=== PATIENT | male | born 1960 | race Caucasian/White ===

== ENCOUNTER 2018-01-07 17:51 | Emergency (ER) | payer MEDICARE, MEDICAID, SELFPAY ==
[2018-01-07 17:52] VITALS: BP 155/78; PULSE 72; RESP 16; TEMP 36.9; O2SAT 97; BMI 20.7
--- NOTE | 2018-01-07 18:35 | ED.RN ---
PT LEFT WITHOUT BEING SEEN.
== END 2018-01-07 18:39 | disposition left against medical advice (07) ==
LOC: ED 18:38
PROVIDERS: Emergency Provider Emergency Medicine
DX: H57.11 Ocular pain, right eye (principal)

== ENCOUNTER → 2020-10-18 14:28 | Outpatient (CLI) | payer MEDICARE, SELFPAY ==
--- NOTE | 2020-10-18 14:33 | RAD_ITS ---
STUDY: X-RAY - CERVICAL SPINE REASON FOR EXAM: Male, 59 years old. CHRONIC NECK PAIN TECHNIQUE: 3 view(s) of the cervical spine were obtained. COMPARISON: None FINDINGS: There are degenerative changes of the anterior atlantoaxial articulation. Normal odontoid process. There is straightening of the normal lordotic curve, a nonspecific finding, which may be due to positioning or which might be due to muscle spasm. There is multi-level endplate spondylosis. There is multi-level degenerative disc disease with multilevel disc space narrowing... The soft tissue structures are unremarkable. RAD/Cerv Spine 2 or 3 Views IMPRESSION: Multilevel degenerative changes. Electronically Signed: Farhad Gibson MD at 5:23 EST , Service support ,
== END ==
PROVIDERS: Referring Provider Anesthesiology Pain Medicine; Visit Provider Anesthesiology Pain Medicine
DX: M54.2 Cervicalgia (principal)
CPT/HCPCS: 72040

== ENCOUNTER → 2020-10-29 15:46 | Outpatient (CLI) | payer MEDICARE, SELFPAY ==
--- NOTE | 2020-10-29 15:49 | CT_ITS ---
STUDY: CT CERVICAL SPINE WITHOUT CONTRAST REASON FOR EXAM: Male, 59 years old. NECK AND LT ARM PAIN x years. HTN-rx controlled. Hx of pacemaker/defibrillator. RADIATION DOSAGE (If Supplied By Facility): CTDIvol = ( 14.58 ) mGy, DLP = ( 314.12 ) mGycm TECHNIQUE: High resolution transaxial imaging was performed without contrast material. Sagittal and coronal images were reconstructed. Individualized dose optimization techniques were used for this CT. COMPARISON: None FINDINGS: Normal craniovertebral junction. Normal anterior atlantoaxial articulation. Normal odontoid process. Normal cervical lordosis. Normal vertebral bodies and posterior osseous elements. C2-3: Normal endplates. Normal disc height and morphology. Normal central canal and intervertebral neuroforamina. C3-4: Normal endplates. Normal disc height and morphology. Normal central canal. Facet hypertrophy narrowing the intervertebral neuroforamina. C4-5: Mild spurring at the endplates. Normal disc height and morphology. Normal central canal. Facet hypertrophy narrowing the intervertebral neuroforamina, right lung and left. C5-6: Spurring at the endplates. Narrowed disc height with vacuum phenomenon. Normal central canal. Uncovertebral spurring narrowing the intervertebral neuroforamina. C6-7: Spurring at the endplates. Narrowed disc height with vacuum phenomenon. Normal central canal. Uncovertebral spurring narrowing the intervertebral neuroforamina, left more than right. C7-T1: Normal endplates. Normal disc height and morphology. Normal central canal and intervertebral neuroforamina. Normal visualized soft tissue structures. CT/Spine Cervical without Contras IMPRESSION: Degenerative changes of the cervical spine. Electronically Signed: Ottoniel Field DO at 16:14 EST Tel [phone], Service support ,
== END ==
PROVIDERS: Referring Provider Anesthesiology Pain Medicine; Visit Provider Anesthesiology Pain Medicine
DX: M54.2 Cervicalgia (principal); M79.602 Pain in left arm
CPT/HCPCS: 72125

== ENCOUNTER 2020-12-08 15:45 | Emergency (ER) | payer MEDICARE, SELFPAY ==
[2020-12-08 15:45] VITALS: BP 164/82; PULSE 71; PULSE 74; RESP 16; TEMP 35.7; O2SAT 98; O2SAT 99; BMI 19.2
--- NOTE | 2020-12-08 16:04 | CT_ITS ---
STUDY: CT ABDOMEN AND PELVIS WITH CONTRAST REASON FOR EXAM: Male, 59 years old. LLQ PAIN, KIWI SIZED MASS R LUNG, SHADOW ON LIVER ; RADIATION DOSAGE (If Supplied By Facility): CTDIvol = ( 9.96 ) mGy, DLP = ( 340.77 ) mGycm TECHNIQUE: Transaxial images were obtained from the dome of the diaphragm to the symphysis pubis without oral contrast. IV 100mL Isovue-370 was administered. Sagittal and coronal images were reconstructed. Individualized dose optimization techniques were used for this CT. COMPARISON: None. FINDINGS: There is 6.5 x 4.3 cm spiculated heterogeneous mass of the right lower lung. There is adjacent consolidation. There are pacemaker wires in the heart. Cyst in the right lobe of the liver measuring 0.5 and 1.3 cm. Normal gallbladder and extrahepatic biliary system. Normal spleen. Normal pancreas. Normal bilateral adrenal glands. Normal right kidney. Normal left kidney. Normal visualized stomach. Normal small intestine. Normal colon. There is moderate stool. There is non-visualization of the appendix. There is diffuse atherosclerotic calcification of the abdominal aorta, without a demonstrated aneurysm. Normal inferior vena cava. Normal retroperitoneum. Normal urinary bladder. No free fluid in the abdomen or pelvis. Normal abdominal wall. There is levoscoliosis with degenerative change of the spine. CT/Abdomen/Pelvis WITH Contrast IMPRESSION: Right lung mass. Cysts in the liver. Moderate stool. No obstruction. Electronically Signed: Bryson Alexander MD at 18:55 EST , Service support ,
--- NOTE | 2020-12-08 16:06 | ED.VIS.GEN ---
History of Present Illness Chief Complaint: Abd Pain Informant: Patient Narrative: 59-year-old male presents for the evaluation of left mid abdominal pain. Symptoms have been present for the past couple days. Is worse with breathing in and out. He denies any diarrhea melena or hematochezia. No urinary symptoms. Patient denies any fevers. He states that he was at [facility] today getting a CT scan of his brain and he stopped by his oncologist office and mentioned his symptoms and they wanted him to stay but he needed to get going for personal reasons they called him and advised him to come to emergency. He denies ever having any abdominal surgeries. Patient was recently diagnosed with a right lower lung mass. He has had a CT scan of his brain that was negative today. He is scheduled for biopsy at [facility] later this month. Patient currently working with [facility] oncology (Dr. Castro). Patient denies any current chest pain or shortness of breath. No current hemoptysis. - Past Medical History (1) Chronic pain Status: Chronic (2) Cardiomyopathy Status: Chronic (3) HTN (hypertension) Status: Chronic Past Medical History - Allergies and Home Meds Allergies/Adverse Reactions: Allergies naproxen Allergy (Verified 01/07/18 17:52) Other GIB Primary Care Physician: aSndeep Castro DO [STAFF PHYSICIAN] - Surgical History: pacemaker implantation, - - AICD Lives: Spouse/ Significant Other, With Family Smoking Status: Current every day smoker Drugs: None Review of Systems General: Denies: Chills, Fever, Sweats Eyes: Denies: Visual changes - bilaterally, Diplopia ENT: Denies: Rhinorrhea, Sore throat Cardiovascular: Denies: Chest pain, Palpitations Respiratory: Denies: Dyspnea, Cough, Dyspnea on exertion Gastrointestinal: Reports: Abdominal pain. Denies: Nausea, Vomiting, Diarrhea, Melena, Hematochezia Genitourinary: Denies: Dysuria, Hematuria, Frequency Musculoskeletal: Denies: Back pain, Extremity Pain Skin: Denies: Rash, Wounds Neurological: Denies: Headache, Weakness, Numbness Physical Exam Vital Signs/Narrative: Vital Signs Temp Pulse Resp BP Pulse Ox 12/08/20 15:45 96.2 F L 71 16 164/82 H 99 Inital Vital Signs reviewed: Yes General: Well nourished, Well developed, No Acute Distress Head: Normocephalic, Atraumatic Eyes: Perrl, EOMI ENT: Moist mucous membranes, No rhinorrhea Neck: Supple, Nontender Cardiovascular: Regular rate, Regular rhythm, No murmurs Respiratory: No distress, CTA bilaterally, Chest nontender Abdomen: Soft, Nondistended, Normal bowel sounds, Tender - Mild tenderness to palpation without guarding or rebound.. Negative for: Guarding, Rebound tenderness Back: Nontender, Normal Inspection Extremities: Nontender, No edema Skin: Normal color, No rash Neurological: Alert, Oriented x3, Cranial nerves II-XII grossly intact, Normal Strength, Normal Sensation Psychological: Normal affect, Normal Mood Diagnostic/Tx/Re-eval Clinical Impression(s) from Imaging Studies Abdomen/Pelvis CT 12/08/20 16:04 IMPRESSION: Right lung mass. Cysts in the liver. Moderate stool. No obstruction. Electronically Signed: Bryson Alexander MD at 18:55 EST , Service support , Laboratory Last Values WBC 10.9 K/mm3 (4.4-11.0) 12/08/20 16:15 RBC 4.95 M/mm3 (4.6-6.2) 12/08/20 16:15 Hgb 13.5 g/dL (13.0-16.5) 12/08/20 16:15 Hct 42.7 % (40-54) 12/08/20 16:15 MCV 86.3 fL (80-94) 12/08/20 16:15 MCH 27.3 pg (27.0-32.0) 12/08/20 16:15 MCHC 31.6 g/dL (32-36) L 12/08/20 16:15 RDW Std Deviation 42.5 fl (35.1-43.9) 12/08/20 16:15 RDW Coeff of Ranulfo 13.6 % (11.6-14.6) 12/08/20 16:15 Plt Count 263 K/mm3 (150-450) 12/08/20 16:15 MPV 9.9 fl (6.2-12.0) 12/08/20 16:15 Immature Gran % (Auto) 0.400 % (0.0-0.9) 12/08/20 16:15 Neut % (Auto) 66.1 % (47-70) 12/08/20 16:15 Lymph % (Auto) 19.0 % (19-41) 12/08/20 16:15 [place] % (Auto) 7.9 % (0-10) 12/08/20 16:15 Eos % (Auto) 5.8 % (0-5) H 12/08/20 16:15 Baso % (Auto) 0.8 % (0-1) 12/08/20 16:15 Absolute Neuts (auto) 7.2 X10^3/uL (2.0-7.7) 12/08/20 16:15 Absolute Lymphs (auto) 2.08 X10^3/uL (0.83-4.51) 12/08/20 16:15 Nucleated RBC % 0 % (0-5) 12/08/20 16:15 Sodium 136 mmol/L (136-145) 12/08/20 16:15 Potassium 3.9 mmol/L (3.5-5.1) 12/08/20 16:15 Chloride 105 mmol/L (98-107) 12/08/20 16:15 Carbon Dioxide 26.0 mmol/L (21.0-32.0) 12/08/20 16:15 Anion Gap 5 (5-15) 12/08/20 16:15 BUN 22 mg/dL (7-18) H 12/08/20 16:15 Creatinine 0.92 mg/dL (0.70-1.30) 12/08/20 16:15 Estim Creat Clear Calc 73.16 ml/min 12/08/20 16:15 Est GFR (MDRD) Af Amer 108 mL/min (>60) 12/08/20 16:15 Est GFR (MDRD) Non-Af 89 mL/min (>60) 12/08/20 16:15 BUN/Creatinine Ratio 23.9 RATIO (10-20) H 12/08/20 16:15 Glucose 83 mg/dL (74-106) 12/08/20 16:15 Calcium 9.4 mg/dL (8.5-10.1) 12/08/20 16:15 Total Bilirubin 0.30 mg/dL (0.20-1.00) 12/08/20 16:15 AST 24 U/L (15-37) 12/08/20 16:15 ALT 40 U/L (16-61) 12/08/20 16:15 Alkaline Phosphatase 134 U/L (45-117) H 12/08/20 16:15 Total Protein 8.5 g/dL (6.4-8.2) H 12/08/20 16:15 Albumin 3.5 g/dL (3.2-5.0) 12/08/20 16:15 Globulin 5.0 g/dL (2.2-4.2) H 12/08/20 16:15 Albumin/Globulin Ratio 0.7 RATIO (0.9-2.4) L 12/08/20 16:15 Lipase 88 U/L (73-393) 12/08/20 16:15 Urine Color Yellow (Yellow) 12/08/20 16:20 Urine Clarity Clear (Clear) 12/08/20 16:20 Urine pH 5.0 (5.0 - 8.0) 12/08/20 16:20 Ur Specific [place] 1.010 (1.002-1.030) 12/08/20 16:20 Urine Protein 15 mg/dl (Negative) H 12/08/20 16:20 Urine Glucose (UA) Normal mg/dl (Normal) 12/08/20 16:20 Urine Ketones Negative mg/dl (Negative) 12/08/20 16:20 Urine Occult Blood 25 /ul (Negative) H 12/08/20 16:20 Urine Nitrite Negative (Negative) 12/08/20 16:20 Urine Bilirubin Negative mg/dL (Negative) 12/08/20 16:20 Urine Urobilinogen Normal mg/dl (Normal) 12/08/20 16:20 Ur Leukocyte Esterase Negative /ul (Negative) 12/08/20 16:20 Urine RBC 0 SEEN /hpf (0-5) 12/08/20 16:20 Urine WBC 0 SEEN /hpf (0-5) 12/08/20 16:20 Ur Squamous Epith Cells 0 SEEN /hpf (0-5) 12/08/20 16:20 Urine Bacteria 0 SEEN /hpf (None Seen) 12/08/20 16:20 Urine Mucus 0 SEEN /hpf (<or=2+) 12/08/20 16:20 - Medical Decision Making CT demonstrates no acute findings in the abdomen to explain the patient's left middle quadrant pain. His blood work is negative. Urinalysis is negative. This point patient will be discharged home to follow-up with his doctor. I did speak with Dr. Castro early up in the course. He sent the patient in as a possible pulmonary embolism evaluation. However given the patient has no chest pain or shortness of breath and his pain is in the left middle quadrant of his abdomen I do not think that this is referred pain from PE. ED Disposition - Plan for ED Patient: Disposition: Home or Assisted Living Diagnosis: Abdominal pain, Liver cyst, Lung mass Instructions: ED Unknown Causes of Abdominal ... Prescriptions: Magnesium Citrate [Citrate Of Magnesia] 300 ml PO X1 #1 bottle Prescription Printed Referrals: Sandeep Castro DO [STAFF PHYSICIAN] -
[2020-12-08 16:35] LABS: Bacteria 0 SEEN /hpf (None Seen); Mucous, Urine 0 SEEN /hpf (<or=2+); Red Blood Cells-Urine 0 SEEN /hpf (0-5); Squamous Epithelial Cells - UA 0 SEEN /hpf (0-5); White Blood Cells 0 SEEN /hpf (0-5)
[2020-12-08 16:37] LABS: Absolute Lymphocyte Count 2.08 X10^3/uL (0.83-4.51); Absolute Neutrophil Count 7.2 X10^3/uL (2.0-7.7); Basophil# 0.09 X10^3/uL; Basophil% 0.8 % (0-1); Eosinophil# 0.63 X10^3/uL; Eosinophils% 5.8 % (0-5); Hematocrit 42.7 % (40-54); Hemoglobin 13.5 g/dL (13.0-16.5); Lymphocyte # 2.08 X10^3/ul (4.0); Mean Corp Hgb Conc 31.6 g/dL (32-36); Mean Corpuscular Hgb 27.3 pg (27.0-32.0); Mean Corpuscular Volume 86.3 fL (80-94); Mean Platelet Vol. 9.9 fl (6.2-12.0); Monocyte# 0.86 X10^3/uL; Monocyte% 7.9 % (0-10); NRBC Flagged by Analyzer 0 % (0-5); Neutrophil # 7.23 X10^3/uL (2.7-7.7); Neutrophil % 66.1 % (47-70); Platelet Count 263 K/mm3 (150-450); RBC Distribution Width CV 13.6 % (11.6-14.6); RBC Distribution Width SD 42.5 fl (35.1-43.9); Red Blood Count 4.95 M/mm3 (4.6-6.2); White Blood Count 10.9 K/mm3 (4.4-11.0)
[2020-12-08 16:38] LABS: Color, Urine Yellow (Yellow); Glucose, Dipstick Normal (Normal); Ketone-Dipstick Negative (Negative); Leukocyte Esterase-Dipstick Negative /ul (Negative); Nitrite-Dipstick Negative (Negative); Occult Blood-Urine 25 /ul (Negative); Protein-Dipstick 15 mg/dl (Negative); Urine Bilirubin Dipstick Negative (Negative); Urine Clarity Clear (Clear); Urine Urobilinogen Normal (Normal)
[2020-12-08 16:49] LABS: ALB/GLOB Ratio 0.7 RATIO (0.9-2.4); AST(SGOT) 24 U/L (15-37); Alanine Aminotransfer ALT/SGPT 40 U/L (16-61); Albumin, Serum 3.5 g/dL (3.2-5.0); Alkaline Phosphatase 134 U/L (45-117); Anion Gap 5 (5-15); BUN 22 mg/dL (7-18); BUN/Creat Ratio 23.9 RATIO (10-20); Calcium,Total 9.4 mg/dL (8.5-10.1); Chloride 105 mmol/L (98-107); Creatinine, Serum 0.92 mg/dL (0.70-1.30); EST Glomerular Filtration Rate 89 mL/min (>60); Est Glom Filt Rate - Afr Amer 108 mL/min (>60); Estimated Creatinine Clearance 73.16 ml/min; Glucose 83 mg/dL (74-106); Lipase 88 U/L (73-393); Potassium 3.9 mmol/L (3.5-5.1); Protein, Total 8.5 g/dL (6.4-8.2); Sodium Level 136 mmol/L (136-145)
[2020-12-08 18:34] VITALS: BP 116/74; PULSE 64; RESP 16; O2SAT 97
[2020-12-08 19:24] VITALS: RESP 18
== END 2020-12-08 19:22 | disposition home or self-care (01) ==
PROVIDERS: Emergency Provider Emergency Medicine
DX: K76.89 Other specified diseases of liver (principal); R91.8 Other nonspecific abnormal finding of lung field; R10.30 Lower abdominal pain, unspecified; I10 Essential (primary) hypertension; F17.200 Nicotine dependence, unspecified, uncomplicated
CPT/HCPCS: 74177; 80053; 81001; 83690; 85025; 99284; Q9967; A4216

== ENCOUNTER → 2020-12-21 15:20 | Outpatient (CLI) | payer MEDICARE, SELFPAY ==
[2020-12-15 09:36] VITALS: BMI 19.8
--- NOTE | 2020-12-21 15:30 | PET_ITS ---
EXAMINATION: FDG PET/CT INDICATIONS: A 60-year-old male with reported history of pulmonary nodularity. COMPARISON EXAMINATION: CT of the chest report dated 11/24/20 INDEX LESION SIZE SUV INTERPRETATION Right lower posteromedial lung-right lower lobe 50.2 x 61.1-mm (frame 137) 33.5 Fulfills quantitative criteria for viable neoplasm, histopathologic analysis recommended Mid abdominal retroperitoneum soft tissue nodule 9.6-mm (frame 103) 3.2 Fulfills quantitative criteria for viable neoplasm Mediastinal structures 23.4-mm (largest) (frame 159) 3.6 (max) Fulfills borderline quantitative criteria for viable neoplasm TECHNIQUE: Following the intravenous administration of 14.1 mCi of F-18 deoxyglucose via the left antecubital fossa, multiplanar image acquisitions of the neck, chest, abdomen and pelvis to level of mid thigh, obtained at one hour post radiopharmaceutical administration contemporaneously interpreted with the current CT of the neck, chest, abdomen and pelvis to level of mid thigh, dated 12/21/[address] of the chest report dated 11/24/20 reveal: SERUM GLUCOSE LEVEL: 82 mg/dl. HEIGHT: 69 inches. WEIGHT: 130 lbs. FINDINGS: 1. A large focus of increased FDG concentration is observed in the right lower posteromedial lung-right lower lobe generating a calculated maximal standard uptake value of 33.5. The maximal axial diameter of the corresponding mass density on review of CT of the chest dated 12/21/20 is 50.2-mm (transverse) x 61.1-mm (AP). 2. An increase in FDG distribution is defined in the carinal, subcarinal mediastinum rendering a calculated maximal standard uptake value of 2.6. The maximal axial diameter of the largest corresponding hypermetabolic soft tissue density on review of CT of the chest dated 12/21/20 is 23.4-mm (transverse). 3. Several nodular foci of increased tracer uptake are demonstrated in the left mid abdominal retroperitoneum, periaortic in location registering a calculated maximal standard uptake value of 3.2. The maximal axial diameter of the largest corresponding soft tissue density on review of CT of the abdomen dated 12/21/20 is 9.6-mm (transverse). 4. Normal physiologic distribution of the radiopharmaceutical is apparent in the hepatic (2.2) and splenic parenchyma, both renal units, bladder and visualized intestinal tract. The visualized portion of the cerebral cortex demonstrate symmetric and preserved glucose metabolism. Diffuse radiopharmaceutical concentration is noted in all four quadrants of the abdomen and pelvis. Pertinent CT findings are as follows: CHEST: There is atherosclerotic calcification defined in the thoracic aorta without evidence of dilatation-aneurysm formation. Coronary arterial calcification is observed. Ventricular pacemaker placement is defined. Right and left axillary soft tissue densities with fatty hilus are ametabolic. There are no additional parenchymal densities-nodules defined in the right and left hemithorax with discernible increased FDG uptake. Emphysematous changes are noted in the bilateral upper lung zones. ABDOMEN AND PELVIS: There is atherosclerotic calcification defined in the abdominal aorta without evidence of dilatation-aneurysm formation. Pelvic arterial calcification is defined. Bilateral inguinal soft tissue densities with fatty hilus are ametabolic. Colonic diverticulosis is encountered without evidence of diverticulitis. Calcified phlebolith formation is noted in the right lower hemipelvis. SKELETAL: Degenerative changes are noted in the cervical, thoracic and lumbar spine without evidence of increased radiopharmaceutical concentration. There is diffuse demineralization identified throughout the axial skeletal structures. There are no sclerotic, mixed sclerotic-lytic and/or primarily lytic changes noted on review of the appendicular, axial skeletal structures. PET/PET/CT Tumor Base -Thigh Init IMPRESSION: 1. The increase in FDG concentration observed in the right lower posteromedial lung-right lower lobe fulfills quantitative criteria for viable neoplasm. Histopathologic analysis is recommended. (James et al, Annals of Internal Medicine, 138:724, 2003). 2. Enhanced tracer uptake visualized in the left mid abdominal retroperitoneum corresponding to several aggregate soft tissue densities fulfills quantitative criteria for apparent viable metastatic disease. 3. Increased radiopharmaceutical concentration visualized in the carinal and subcarinal mediastinum fulfills borderline quantitative criteria for viable neoplasm. (Lj et al, Journal of Clinical Oncology 16:2142, 1998). Electronic Signature Anders Solares D.O. Accurate Quantification of SUVs for this report are calculated using the exclusive [employer]? Technology.??Exclusive [place]. Patent [employer]? Technology ([place].S. Patent No. 10, [id number] 983). Electronically Signed: Anders Solares DO at 22:58 EST Tel , Service support ,
== END ==
LOC: ONC 15:23
PROVIDERS: Referring Provider Internal Medicine Hematology & Oncology; Visit Provider Internal Medicine Hematology & Oncology
DX: R91.8 Other nonspecific abnormal finding of lung field (principal)
CPT/HCPCS: 78815; A9552

== ENCOUNTER → 2020-12-24 12:58 | Outpatient (CLI) | payer MEDICARE, SELFPAY ==
[2020-12-15 09:36] VITALS: BMI 19.8
--- NOTE | 2020-12-24 13:00 | ECHODONC_ITS ---
Reason For Study: DYSPNEA Procedure This was a 2D Doppler, Color Flow transthoracic echocardiogram. Myocardial strain analysis was performed in this exam to aid in the assessment of cardiac function. The study was technically difficult. Exam performed in department. Left Ventricle Normal LV size. Left ventricular systolic function is normal. The estimated ejection fraction is 55 %. No regional wall motion abnormalities noted. Right Ventricle Normal RV size. ICD or pacer leads identified within the right ventricle. Normal systolic function. Atria Normal left atrium. Normal right atrium. Mitral Valve Normal mitral valve. Tricuspid Valve Normal tricuspid valve. Mild tricuspid valve insufficiency. Pulmonary artery systolic pressure is 33 mmHg. Aortic Valve Normal aortic valve. Trisinus/trileaflet aortic valve. Pulmonic Valve Normal pulmonic valve. Great Vessels Normal aortic root. The pulmonary artery is normal size. Normal inferior vena cava. Pericardium/Pleural No pericardial effusion. MMode/2D Measurements & Calculations LVIDd: 4.7 cm IVSd: 0.73 cm Ao root diam: 3.2 cm LVIDs: 3.6 cm LVPWd: 0.79 cm RVDd: 3.3 cm FS: 23.5 % LAV(MOD-bp): 53.2 ml LA A4 area: 19.2 cm2 LA dimension(2D): 3.7 cm LAV(MOD-bp) Indexed: 30.5 ml/m2 LAV(MOD-sp2): 43.1 ml LAV(MOD-sp4): 57.0 ml RA A4 area: 11.8 cm2 Time Measurements MV dec time: 0.36 sec Doppler Measurements & Calculations MV E max elmer: 48.3 cm/sec Lat Peak E' Elmer: 8.8 cm/sec Med Peak E' Elmer: 8.0 cm/sec MV A max elmer: 43.7 cm/sec E/E' lat: 5.5 E/E' med: 6.0 MV E/A: 1.1 Ao V2 max: 120.0 cm/sec LV V1 max: 87.8 cm/sec PA V2 max: 74.0 cm/sec Ao max P.8 mmHg LV V1 max P.1 mmHg Ao V2 mean: 80.3 cm/sec Ao mean P.8 mmHg Ao V2 VTI: 24.1 cm TR max elmer: 271.4 cm/sec TR max P.5 mmHg Interpretation Summary Normal LV size. Left ventricular systolic function is normal. The estimated ejection fraction is 55 %. Pulmonary artery systolic pressure is 33 mmHg. The global longitudinal strain is normal. The global longitudinal strain = -18 % (normal). Ordering Physician: Moe Reza Referring Physician: Moe Reza Performed By: Candy Meehan, RUSSELLCS, RVT
== END ==
PROVIDERS: Referring Provider Internal Medicine Cardiovascular Disease; Visit Provider Internal Medicine Cardiovascular Disease
DX: I34.0 Nonrheumatic mitral (valve) insufficiency (principal)
CPT/HCPCS: 93306; 93356

== ENCOUNTER → 2021-01-11 08:52 | Outpatient (CLI) | payer MEDICARE, SELFPAY ==
[2020-12-15 09:36] VITALS: BMI 19.8
[2021-01-11] VITALS (14 sets, daily range): BP systolic 106–128; BP diastolic 55–78; PULSE 60–66; RESP 11–19; O2SAT 96–99; BMI 19.6
--- NOTE | 2021-01-11 | ASPIGT_PTH ---
PATIENT: NAKUL TRISTAN LOC: CT U#:[id number] AGE/SX: 64/M ROOM: RE01/11/[address]: Dr. Sandeep Castro DO : 1960 BED: DIS: SPEC #: [id number] RECD: 01/11/21 11:00 STATUS: JOSELIN VINCENT #: [id number] AJ: 01/11/21 00:[address]: Sandeep Castro DEPT: SURGICAL PATHOLOGY RECD BY: Nicole Bowen ENTERED: 01/11/21 12:53 SP TYPE: ASP RAD OTHR DR: Dr. Reinaldo Anaya, MD Jorje Frances, PAYING TELLER-C Tissues: Lung, NOS Procedures: FNA Specimen Adequacy Special Stain Group II Surgery Specimen Level IV Imprint (control) HEADER OPERATION: RLL lung CT-guided core biopsy PRE-OP DIAGNOSIS: RLL lung nodule TISSUE SUBMITTED: Right lower lung mass, 20-gauge core x5 MICROSCOPIC DIAGNOSIS Right lower lung mass, CT-guided core biopsy: Negative for malignant cells. See comment. RUSLAN:steph 01/12/2021 COMMENT The specimen is evaluated at the time of biopsy by Dr. Gonzalez. Immediate Evaluation = Negative for malignant cells. Numerous neutrophils are noted. The core biopsy predominantly shows blood clots, scant fibrinous material and rare neutrophils. Smears show numerous neutrophils and macrophages. Findings may represents inflamed cyst contents. Correlation with clinical, radiologic findings and appropriate follow up are necessary. Re-biopsy is suggested if clinically indicated. Case has been reviewed in consultation with Dr. Ramon who concurs with the above diagnosis. IDC:AM MICROSCOPIC DESCRIPTION Slides are reviewed. GROSS DESCRIPTION Received in fixative is one container labeled with the patient's name and designated right lung, CT-guided core biopsy. The specimen consists of multiple irregular fragments of pink-red soft tissue that in aggregate measure 0.5 x 0.1 x 0.1 cm. The specimen is totally submitted in one cassette. Three touch imprints are prepared at the time of core biopsy. / RUSLAN:steph 01/11/21 TC: Cannot code CPT: 93850, 00422
--- NOTE | 2021-01-11 08:58 | CT_ITS ---
PROCEDURE: CT GUIDED CORE NEEDLE BIOPSY OF A right lower lateral LUNG LESION INDICATION: Male, 60 years old. Right lower lung mass biopsy. PHYSICIAN: Dr. FCO Patricio CONSENT: Written informed consent was obtained having explained the risks, benefits and alternatives in detail with the patient who accepted the risks and agreed to proceed. Laboratory review and clinical assessment was performed. CONSCIOUS SEDATION PROTOCOL: The Drugs used were: Versed, 2 mg IV., and 75 mcg Fentanyl, IV. The sedation time was: 23 minutes. Conscious sedation was started at 10:20 AM and terminated at 10:43 AM. The conscious sedation protocol was independently monitored. RADIATION DOSAGE (If Supplied By Facility): CTDIvol = ( 13.6 ) mGy, DLP = ( 286.65 ) mGycm Individualized dose optimization techniques were used for this CT. TECHNIQUE: The patient was placed in the prone position. A noncontrast CT was performed to localize the lesion in the posterior medial aspect of the right lower lobe . The skin surface was prepped and draped in a sterile fashion. 1% lidocaine was used for local anesthesia. Using CT guidance, a 20-gauge coaxial biopsy device was advanced to the periphery of the lesion. A total of 5 core specimens were obtained. The specimens were placed in a formalin solution. A post procedure CT demonstrated no adverse sequelae or pneumothorax. The patient tolerated the procedure well without adverse event. A negative biopsy does not exclude malignancy. Further imaging or clinical followup based on patient condition and degree of clinical suspicion for malignancy. Suggest rebiopsy, if biopsy results do not match with clinical scenario. CT/Biopsy/Inj or Needle Placement IMPRESSION: 1. CT directed core needle biopsy of the right lower lobe nodule using CT image guidance with image documentation as described. Pathology results are pending. 2. Conscious Sedation protocol utilized with independent monitoring. Electronically Signed: Reinaldo Anaya MD at 11:21 EST , Service support ,
[2021-01-11 09:54] LABS: Absolute Lymphocyte Count 1.55 X10^3/uL (0.83-4.51); Absolute Neutrophil Count 7.1 X10^3/uL (2.0-7.7); Basophil# 0.07 X10^3/uL; Basophil% 0.7 % (0-1); Eosinophil# 0.63 X10^3/uL; Eosinophils% 6.2 % (0-5); Hematocrit 41.6 % (40-54); Hemoglobin 13.2 g/dL (13.0-16.5); Lymphocyte # 1.55 X10^3/ul (4.0); Lymphocyte % 15.4 % (19-41); Mean Corp Hgb Conc 31.7 g/dL (32-36); Mean Corpuscular Hgb 27.2 pg (27.0-32.0); Mean Corpuscular Volume 85.6 fL (80-94); Mean Platelet Vol. 9.8 fl (6.2-12.0); Monocyte# 0.73 X10^3/uL; Monocyte% 7.2 % (0-10); NRBC Flagged by Analyzer 0 % (0-5); Neutrophil # 7.05 X10^3/uL (2.7-7.7); Neutrophil % 69.9 % (47-70); Platelet Count 269 K/mm3 (150-450); RBC Distribution Width CV 13.3 % (11.6-14.6); Red Blood Count 4.86 M/mm3 (4.6-6.2); White Blood Count 10.1 K/mm3 (4.4-11.0)
[2021-01-11 10:05] LABS: Partial Thromboplast Time 33.2 Seconds (24.1-36.2)
--- NOTE | 2021-01-11 10:15 | RAD_ITS ---
STUDY: X-RAY CHEST REASON FOR EXAM: Male, 60 years old. Pneumothorax TECHNIQUE: AP inspiration and expiration views. COMPARISON: Comparison is made with prior study dated 09/11/2014. FINDINGS: There is no evidence of pneumothorax on the immediate post right lung biopsy radiographs. Metallic shrapnel is seen overlying the right shoulder. RAD/Chest Insp/Exp 2 View IMPRESSION: No evidence of pneumothorax on the immediate post right lung biopsy radiographs. Electronically Signed: Reinaldo Anaya MD at 12:26 EST , Service support ,
[2021-01-11] MEDS: Midazolam 2 MG/2 ML Syringe IV (10:20)
[2021-01-11] MEDS: fentaNYL 100 MCG/2 ML Ampul IV ×2 (10:22→10:38)
--- NOTE | 2021-01-11 12:50 | RAD_ITS ---
STUDY: X-RAY CHEST REASON FOR EXAM: Male, 60 years old. Pneumothorax TECHNIQUE: AP inspiration and expiration views. COMPARISON: Comparison is made with prior study done earlier today. FINDINGS: Two-hour post right lung biopsy radiographs. No evidence of pneumothorax. RAD/Chest Insp/Exp 2 View IMPRESSION: No evidence of pneumothorax on the two-hour post right lung biopsy radiographs. Electronically Signed: Reinaldo Anaya MD at 13:32 EST , Service support ,
--- NOTE | 2021-01-11 13:25 | NURSING ---
Dr. Anaya spoke with patient at 1258 reporting that his chest xray looked good with no signs of pneumothorax. Dr. Anaya asked pt if there was anything else we could do for him and reminded him to follow up with Dr. Castro to obtain results. Pt states he has no questions.
== END ==
PROVIDERS: PCP Nurse Practitioner Family; Referring Provider Internal Medicine Hematology & Oncology; Visit Provider Internal Medicine Hematology & Oncology
DX: R91.8 Other nonspecific abnormal finding of lung field (principal)
CPT/HCPCS: 32408; 71046; 77012; 85025; 85610; 85730; 88172; 88305; 88313; 99155; 99156; J7040; A4216; C2613

== ENCOUNTER 2021-01-17 16:43 | Emergency (ER) | payer MEDICARE, SELFPAY ==
[2021-01-11 09:28] VITALS: BMI 19.6
[2021-01-17 16:44] VITALS: BP 192/106; PULSE 70; RESP 16; TEMP 36.2; O2SAT 99; BMI 19.4
--- NOTE | 2021-01-17 17:02 | ED.DCSUM_ITS ---
History of Present Illness Chief Complaint: Wound Check Narrative: Patient had a right lung biopsy about a week ago he has had continued pain since then he has no worsening shortness of breath but his pain is quite bad that he could not sleep the first few nights, now it is improving but still not back to normal. He has no fever or chills. There is no pleuritic component. Past medical history: Lung mass, cardiomyopathy status post AICD Medications: Reviewed Social history: Noncontributory Review of systems: All systems negative except as indicated General: Denies: Fever Eyes: Denies: Visual changes - bilaterally ENT: Denies: Rhinorrhea, Sore throat Cardiovascular: Right-sided chest pain in the lower ribs Respiratory: Denies: Dyspnea, Cough Gastrointestinal: Denies: Abdominal pain, Nausea, Vomiting Genitourinary: Denies: Dysuria Musculoskeletal: Denies: Myalgias Skin: Denies: Rash Neurological: Denies: Headache, no focal weakness Psych: Reports: negative Hematologic: Denies: Easy bruising, Easy bleeding Physical exam General: Patient appears chronically ill Head: Normocephalic, Atraumatic Eyes: Conjunctiva not pale ENT: Moist mucous membranes Neck: Supple, Nontender, No lymphadenopathy Cardiovascular: Regular rate, Regular rhythm Respiratory: No distress, CTA bilaterally. There is tenderness over the right chest wall region but no obvious signs of trauma. Abdomen: Soft, Nontender, Nondistended Back: I examined the puncture carmenza, I did not see any crepitus or erythema or signs of infection. Extremities: Nontender, No edema Skin: Normal color, No rash Neurological: Alert, Normal Strength, Normal Sensation Psychological: Normal affect Past Medical History - Allergies and Home Meds Allergies/Adverse Reactions: Allergies naproxen Allergy (Verified 01/17/21 16:44) Other GIB Primary Care Physician: Jorje Frances MEN'S CUSTOM HAIR PIECE CONSULTANT, MEN'S CUSTOM HAIR PIECE CONSULTANT-C [Primary Care Provider] - Surgical History: pacemaker implantation, - - AICD Smoking Status: Current every day smoker Physical Exam Vital Signs/Narrative: Vital Signs Temp Pulse Resp BP Pulse Ox 01/17/21 16:44 97.2 F L 70 16 192/106 H 99 Diagnostic/Tx/Re-eval - Medical Decision Making Patient has a normal CT, it shows the lung mass which is stable and unchanged no signs of pathology from the biopsy. Lab work was unremarkable. Patient will be discharged with analgesia. Symptoms are improving since he had the biopsy. ED Disposition - Plan for ED Patient: Disposition: Home or Assisted Living Diagnosis: Chest wall pain, Chest wall pain following surgery Instructions: ED Wound Check (No Infection) Prescriptions: Hydrocodone Bitart/Apap 5-325 [Elwin 5MG-325MG] 1 tab PO Q4H PRN PRN 2 Days #10 tab PRN Reason: Pain Prescription Printed Referrals: Jorje Frances NP, MEN'S CUSTOM HAIR PIECE CONSULTANT-C [Primary Care Provider] -
[2021-01-17] MEDS: Morphine 4 MG/ML Syringe IV (17:12)
[2021-01-17] MEDS: Ondansetron 4 MG/2 ML Vial IV (17:12)
--- NOTE | 2021-01-17 17:16 | CT_ITS ---
STUDY: CT CHEST WITHOUT CONTRAST REASON FOR EXAM: Male, 60 years old. Postop lung biopsy 5 days ago. Site pain. TECHNIQUE: Transaxial imaging was performed without the administration of intravenous contrast material. Multiplanar coronal and sagittal images were reformatted. Individualized dose optimization techniques were used for this CT. COMPARISON: PET/CT scan, 12/21/2020. CT lung biopsy, 01/11/2021. FINDINGS: There are diffuse emphysematous changes of the lungs. Again seen is a large mass in the medial right lung base with surrounding spiculations appears unchanged from previous study. There is central calcification. There are also small calcification within the left lower lobe adjacent to the hilum. There is no demonstrated pleural abnormality. Normal heart and pericardium. Stable pacer leads. Stable mediastinal lymphadenopathy. Normal hilar regions. Normal unenhanced pulmonary arteries. Is mild atherosclerotic changes of the thoracic aorta without aneurysm. Degenerative changes of the thoracic spine. There are no lytic or blastic lesions. The generator for the cardiac pacer lies in the soft tissues of the right upper chest. There is a small hypodensity in segment 7 of the liver. The upper abdomen appears otherwise unremarkable. CT/Chest without Contrast IMPRESSION: 1. Stable right lower lobe lung mass. There is no change from the prebiopsy images. 2. No new findings or major interval change. Electronically Signed: Suman Lawrence DO at 17:47 EST Tel [phone], Service support ,
[2021-01-17 17:23] LABS: Absolute Lymphocyte Count 1.86 X10^3/uL (0.83-4.51); Absolute Neutrophil Count 6.6 X10^3/uL (2.0-7.7); Basophil# 0.08 X10^3/uL; Basophil% 0.8 % (0-1); Eosinophil# 0.62 X10^3/uL; Eosinophils% 6.2 % (0-5); Hematocrit 41.3 % (40-54); Hemoglobin 13.9 g/dL (13.0-16.5); Lymphocyte # 1.86 X10^3/ul (4.0); Lymphocyte % 18.7 % (19-41); Mean Corp Hgb Conc 33.7 g/dL (32-36); Mean Corpuscular Hgb 28.6 pg (27.0-32.0); Mean Platelet Vol. 10.2 fl (6.2-12.0); Monocyte# 0.77 X10^3/uL; Monocyte% 7.8 % (0-10); NRBC Flagged by Analyzer 0 % (0-5); Neutrophil # 6.57 X10^3/uL (2.7-7.7); Neutrophil % 66.2 % (47-70); Platelet Count 257 K/mm3 (150-450); RBC Distribution Width CV 13.5 % (11.6-14.6); RBC Distribution Width SD 41.3 fl (35.1-43.9); Red Blood Count 4.86 M/mm3 (4.6-6.2); White Blood Count 9.9 K/mm3 (4.4-11.0)
[2021-01-17 17:50] LABS: ALB/GLOB Ratio 0.7 RATIO (0.9-2.4); AST(SGOT) 21 U/L (15-37); Alanine Aminotransfer ALT/SGPT 35 U/L (16-61); Albumin, Serum 3.5 g/dL (3.2-5.0); Alkaline Phosphatase 146 U/L (45-117); Anion Gap 7 (5-15); BUN 15 mg/dL (7-18); BUN/Creat Ratio 17.9 RATIO (10-20); Calcium,Total 9.7 mg/dL (8.5-10.1); Chloride 101 mmol/L (98-107); Creatinine, Serum 0.84 mg/dL (0.70-1.30); EST Glomerular Filtration Rate 100 mL/min (>60); Est Glom Filt Rate - Afr Amer 121 mL/min (>60); Estimated Creatinine Clearance 80.09 ml/min; Globulin 4.9 g/dL (2.2-4.2); Glucose 93 mg/dL (74-106); Potassium 3.9 mmol/L (3.5-5.1); Protein, Total 8.4 g/dL (6.4-8.2); Sodium Level 137 mmol/L (136-145)
== END 2021-01-17 18:23 | disposition home or self-care (01) ==
PROVIDERS: Emergency Provider Emergency Medicine; PCP Nurse Practitioner Family
DX: G89.18 Other acute postprocedural pain (principal); R07.89 Other chest pain; F17.200 Nicotine dependence, unspecified, uncomplicated
CPT/HCPCS: 71250; 80053; 85025; 96374; 96375; 99283; A4216; J2405

== ENCOUNTER 2021-02-15 12:58 | Emergency (ER) | payer MEDICARE, MEDICAID, SELFPAY ==
[2021-02-15 12:59] VITALS: BP 139/82; PULSE 71; RESP 20; TEMP 36.6; O2SAT 96; BMI 19.3
--- NOTE | 2021-02-15 13:35 | CT_ITS ---
STUDY: CTA CHEST REASON FOR EXAM: Male, 60 years old. Chest pain, hemoptysis. New diagnosis of lung cancer. RADIATION DOSAGE (If Supplied By Facility): CTDIvol = ( 6.52 ) mGy, DLP = ( 207.58 ) mGycm TECHNIQUE: The examination was performed with the intravenous administration of IV 100ML ISOVUE 370. Post-processing of the angiographic images was performed, with multiplanar reformation and 3D reconstruction. Individualized dose optimization techniques were used for this CT. COMPARISON: Comparison is made with prior study dated 01/17/2021. FINDINGS: Normal enhancement of the main pulmonary artery and right and left pulmonary arteries. Normal enhancement of the bilateral peripheral pulmonary arteries. There is no demonstrated pulmonary embolism. Normal thoracic aorta and visualized great vessels. There is no demonstrated aortic dissection. There are calcifications of the coronary arteries. Normal mediastinum. Normal hilar regions. Normal visualized trachea and bronchi. Hyperinflation. Mild degree of emphysematous changes. There is a 6.4 cm x 6.3 cm mass in the posterior medial segment of the right lower lobe. Normal pleura. Normal chest wall structures. There are degenerative changes of thoracic spine. Increased kyphosis. Normal visualized upper abdomen. CT/CTA Chest W/WO Contrast IMPRESSION: No evidence of pulmonary embolism. Stable 6.4 cm x 6.3 cm mass in the posterior medial segment of the right lower lobe. Electronically Signed: Reinaldo Anaya MD at 15:05 EDT , Service support ,
--- NOTE | 2021-02-15 13:36 | EKG12_ITS ---
Test Reason : PAIN OTHER Blood Pressure : / mmHG Vent. Rate : 060 BPM Atrial Rate : 060 BPM P-R Int : 128 ms QRS Dur : 142 ms QT Int : 436 ms P-R-T Axes : 082 032 081 degrees QTc Int : 436 ms AV dual-paced rhythm Biventricular pacemaker detected Abnormal ECG Confirmed by JUAN LEW, MIAN ([id number]), production editor DEBORAH RUSSO ([id number]) on 02/17/2021 9:53:34 AM Referred By: MARV Confirmed By:MIAN MARTINEZ MD
[2021-02-15] MEDS: HYDROmorphone 1 MG/ML Syringe IV ×2 (13:47→16:32)
[2021-02-15 14:03] LABS: Absolute Neutrophil Count 7.3 X10^3/uL (2.0-7.7); Basophil# 0.07 X10^3/uL; Basophil% 0.7 % (0-1); Eosinophil# 0.71 X10^3/uL; Eosinophils% 6.8 % (0-5); Hematocrit 37.4 % (40-54); Hemoglobin 12.1 g/dL (13.0-16.5); Lymphocyte % 14.3 % (19-41); Mean Corp Hgb Conc 32.4 g/dL (32-36); Mean Corpuscular Hgb 27.5 pg (27.0-32.0); Mean Platelet Vol. 9.3 fl (6.2-12.0); Monocyte# 0.92 X10^3/uL; Monocyte% 8.8 % (0-10); NRBC Flagged by Analyzer 0 % (0-5); Neutrophil # 7.25 X10^3/uL (2.7-7.7); Platelet Count 312 K/mm3 (150-450); RBC Distribution Width CV 13.3 % (11.6-14.6); RBC Distribution Width SD 41.3 fl (35.1-43.9); White Blood Count 10.5 K/mm3 (4.4-11.0)
[2021-02-15 14:20] LABS: Anion Gap 3 (5-15); BUN 14 mg/dL (7-18); Calcium,Total 9.2 mg/dL (8.5-10.1); Chloride 101 mmol/L (98-107); Creatinine, Serum 0.88 mg/dL (0.70-1.30); EST Glomerular Filtration Rate 95 mL/min (>60); Est Glom Filt Rate - Afr Amer 114 mL/min (>60); Estimated Creatinine Clearance 78.28 ml/min; Glucose 100 mg/dL (74-106); Potassium 3.9 mmol/L (3.5-5.1); Sodium Level 133 mmol/L (136-145)
[2021-02-15 15:26] VITALS: BP 136/71; PULSE 68; RESP 16; O2SAT 97
[2021-02-15 16:01] VITALS: BMI 19.4
--- NOTE | 2021-02-15 17:07 | ED.DCSUM_ITS ---
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 Patient states he has had pain since the end of October 2020. He recently had a bronchoscopy with biopsy. Today he woke up and his pain was more severe. His oncologist, , I recommend he come to the emergency room to be evaluated further. Patient is continued to have hemoptysis the past few months. No other acute change. The pain is in his right lower chest and radiates around to his back. It is worse with deep breathing. He denies any shortness of breath or difficulty breathing. Denies any other symptoms at this time. Patient is currently taking gabapentin and two 7.5 mg Percocets with no relief of his pain. Past Medical History - Allergies and Home Meds Allergies/Adverse Reactions: Allergies naproxen Allergy (Verified 02/15/21 15:56) GI bleed GIB Primary Care Physician: Jorje Frances TUBE MAKING MACHINE OPERATOR, TUBE MAKING MACHINE OPERATOR-C [Primary Care Provider] - Past Medical History: - - Right lower lobe lung cancer Surgical History: pacemaker implantation, - - AICD Lives: Spouse/ Significant Other Smoking Status: Current every day smoker Review of Systems General: Denies: Chills, Fever, Sweats Eyes: Denies: Visual changes - bilaterally, Diplopia ENT: Denies: Rhinorrhea, Sore throat Cardiovascular: Reports: Chest pain. Denies: Palpitations Respiratory: Denies: Dyspnea, Cough, Dyspnea on exertion Gastrointestinal: Denies: Abdominal pain, Nausea, Vomiting, Diarrhea, Melena, Hematochezia Genitourinary: Denies: Dysuria, Hematuria, Frequency Musculoskeletal: Denies: Back pain, Extremity Pain Skin: Denies: Rash, Wounds Neurological: Denies: Headache, Weakness, Numbness Physical Exam Vital Signs/Narrative: Vital Signs Pulse Resp BP Pulse Ox 02/15/21 15:26 68 16 136/71 H 97 Inital Vital Signs reviewed: Yes General: Well nourished, Well developed, No Acute Distress Head: Normocephalic, Atraumatic Eyes: Perrl, EOMI ENT: Moist mucous membranes, No rhinorrhea Neck: Supple, Nontender Cardiovascular: Regular rate, Regular rhythm, No murmurs Respiratory: No distress, CTA bilaterally, Chest tenderness - Tenderness to palpation right lower chest wall. No associated crepitus. Abdomen: Soft, Nontender, Nondistended, Normal bowel sounds Back: Nontender, Normal Inspection Extremities: Nontender, No edema Skin: Normal color, No rash Neurological: Alert, Oriented x3, Cranial nerves II-XII grossly intact, Normal Strength, Normal Sensation Psychological: Normal affect, Normal Mood Diagnostic/Tx/Re-eval Clinical Impression(s) from Imaging Studies Chest CTA 02/15/21 13:35 IMPRESSION: No evidence of pulmonary embolism. Stable 6.4 cm x 6.3 cm mass in the posterior medial segment of the right lower lobe. Electronically Signed: Reinaldo Anaya MD at 15:05 EDT , Service support , Laboratory Data 02/15/21 02/15/21 13:50 13:50 WBC 10.5 RBC 4.40 L Hgb 12.1 L Hct 37.4 L MCV 85.0 MCH 27.5 MCHC 32.4 RDW Std Deviation 41.3 RDW Coeff of Ranulfo 13.3 Plt Count 312 MPV 9.3 Immature Gran % (Auto) 0.400 Neut % (Auto) 69.0 Lymph % (Auto) 14.3 L [place] % (Auto) 8.8 Eos % (Auto) 6.8 H Baso % (Auto) 0.7 Absolute Neuts (auto) 7.3 Absolute Lymphs (auto) 1.50 Nucleated RBC % 0 Sodium 133 L Potassium 3.9 Chloride 101 Carbon Dioxide 29.0 Anion Gap 3 L BUN 14 Creatinine 0.88 Estim Creat Clear Calc 78.28 Est GFR (MDRD) Af Amer 114 Est GFR (MDRD) Non-Af 95 BUN/Creatinine Ratio 16.0 Glucose 100 Calcium 9.2 Troponin I < 0.015 - Rhythm Strip Rhythm Strip: Paced Rate: 60 Ectopy: None - EKG Initial EKG Interpretation: Paced, - - Dual AV paced rhythm at a rate of 60 No acute ischemic changes - Medical Decision Making Patient is evaluated for worsening chest pain. The pain seems to be pleuritic. Given he is having worsening pain, recent biopsy and hemoptysis I did perform a CTA looking for PE, pneumothorax, hemorrhage or other acute process. CT does not show any acute process and continues to show a right lower lobe mass. Patient is given 2 doses of 1 mg IV Dilaudid with minimal improvement of his pain. On reevaluation he states morphine works better she was given 6 mg of IV morphine. Case is discussed with oncology on-call, Dr. De Santiago, who is not persona uliy familiar with the patient but recommends a trial of Decadron as his pain is pleuritic. In addition he states that we should offer admission for pain control and titration of pain medication. Patient declines admission states he has children at the house that he needs to help watch and cannot leave his alone. Patient does have an appointment see palliative medicine tomorrow at 11 AM. He is encouraged to keep this appointment. He will be placed on a 5-day course of Decadron and is also given a Lidoderm patch. He is given first dose of Decadron in the emergency room. He had his Percocet to take at home as well as his gabapentin. Patient is counseled on signs and symptoms requiring return to the emergency room. Patient verbalizes agreement and understand this plan. Patient discharged home in stable and improved condition. ED Disposition - Plan for ED Patient: Disposition: Home or Assisted Living Diagnosis: Pleuritic chest pain, Right lower lobe lung mass Instructions: ED Chronic Pain Prescriptions: Dexamethasone [Decadron] 4 mg PO BIDCM #9 tab Transmission Status: Pending to [email or web address] #[id number] Referrals: Jorje Frances NP, TUBE MAKING MACHINE OPERATOR-C [Primary Care Provider] - Additional Instructions: Start using Lidoderm patches daily if you find it helpful today. You can get them [id number] at any drugstore. They are 4% lidocaine at the drugstore. Please try to make your palliative medicine appointment tomorrow as I think will be very helpful for you. Your CT did not show any acute process or change to explain the worsening pain.
[2021-02-15] MEDS: dexAMETHasone 4 MG Tablet PO (17:08)
[2021-02-15] MEDS: morphine 8 MG/ML Syringe 6 MG IV (17:08)
[2021-02-15] MEDS: Lidocaine 5% Patch 1 PATCH TOPICAL (17:09)
[2021-02-15 17:12] VITALS: BP 153/81; PULSE 71; RESP 16; O2SAT 97
== END 2021-02-15 17:29 | disposition home or self-care (01) ==
PROVIDERS: Emergency Provider Emergency Medicine; PCP Nurse Practitioner Family
DX: R07.81 Pleurodynia (principal); C34.31 Malignant neoplasm of lower lobe, right bronchus or lung; F17.200 Nicotine dependence, unspecified, uncomplicated
CPT/HCPCS: 71275; 80048; 84484; 85025; 93005; 96374; 96375; 96376; 99282; Q9967; A4216

== ENCOUNTER 2021-02-18 17:14 | Inpatient (IN) | payer MEDICARE, MEDICAID, SELFPAY ==
[2021-02-18] VITALS (8 sets, daily range): BP systolic 84–133; BP diastolic 55–74; PULSE 76–118; RESP 14–30; TEMP 36.6–38.3; O2SAT 93–96; BMI 39.0; BMI 18.8; BMI 18.9
--- NOTE | 2021-02-18 17:31 | ED.DCSUM_ITS ---
- ER Visit Summary Date of Service: 02/18/21 Chief Complaint: [Back pain] History of Present Illness: The patient is a 60 M [presents to the emergency department with back pain that he has had for some time but worse over the last 3 days. Patient was seen in this emergency department 3 days ago with some c omplaint of hemoptysis and had a CTA of his chest at that time that showed a large right lower lobe mass which he is known about. Patient is in the process of getting worked up by his oncologist and he is recently seen a cardiothoracic surgeon. Patient states that he has not been out of bed for the last 2 days only to use the restroom. Patient states that the Vicodin is not helping his pain. He had some sweats last night but did not realize he had a fever until he got to the emergency department as temperature taken. Patient does have a cough that is productive at times of yellow phlegm that has some blood tinges in it. Patient has history of hypertension, CHF, COPD, nonischemic cardiomyopathy. Patient continues to smoke and has history of THC use as well. Patient's cardiothoracic surgeon called in let us know the patient was coming to the emergency department.] Physical Examination: [HEENT-PERRLA, EOMI. Cranial nerves II through XII grossly intact. TMs clear. Mucous membranes moist. No adenopathy. Cardiovascular-regular rate and rhythm without murmur or ectopy Lungs-good aeration bilaterally. Patient does have slightly diminished breath sounds right lung base compared to the left. Mild tachypnea. No accessory muscle use or retractions noted. Abdomen-normoactive bowel sounds, soft, nontender, no rebound or rigidity, no peritoneal signs. Back exam-patient has no tenderness over the thoracic or lumbar spine. Patient does have tenderness palpation over the right lower ribs and lumbar paraspinal musculature. Straight leg raises. Deep tendon reflexes are plus 2 out of 4 bilaterally at the patella and Achilles. Patient has normal 5 extension bilaterally. Extremities-intact ?4, normal range of motion, normal pulses, atraumatic] Test Results: [CBC with differential obtained showed a white count of 20,000, hemoglobin 12.1, hematocrit 38, placed 322. Chemistries unremarkable. LFTs unremarkable. INR 1.2. Urinalysis normal. Lactate was 1.4. Chest x-ray showed 6.5 cm cavitary lesion in the right lower lobe.] Emergency Department Course and Treatment: IV line established on arrival. Patient was started on Levaquin 750 mg IV empirically. [Blood cultures ordered and pending. Patient was medicated with morphine and Zofran and continues to complain of pain.] Treatment Plan: [Admit] Disposition: [Admit] Impression: [Intractable pain Sepsis] This note was generated with [employer] dictation software. It may contain incorrect words, spelling, and punctuation that were not noted in review of the chart prior to signing ED Disposition - Plan for ED Patient: Referrals: Jorje Frances NP, VETERINARY MEDICINE TEACHER-C [Primary Care Provider] -
[2021-02-18] MEDS: 0.9% Normal Saline 1,000 ML 150 ML IV (18:02)
[2021-02-18] MEDS: Morphine 4 MG/ML Syringe IV ×3 (18:03→21:35)
[2021-02-18] MEDS: Ondansetron 4 MG/2 ML Vial IV (18:03)
[2021-02-18] MEDS: levoFLOXacin IV 750 MG/150 ML BAG 100 MG IV (18:05)
[2021-02-18 18:14] LABS: Bacteria 0 SEEN /hpf (None Seen); Mucous, Urine 0 SEEN /hpf (<or=2+)
[2021-02-18 18:21] LABS: Color, Urine Yellow (Yellow); Glucose, Dipstick Normal (Normal); Ketone-Dipstick 50 mg/dl (Negative); Leukocyte Esterase-Dipstick 25 /ul (Negative); Nitrite-Dipstick Negative (Negative); Occult Blood-Urine 50 /ul (Negative); Protein-Dipstick 30 mg/dl (Negative); Urine Clarity Sl. Cloudy (Clear); Urine Urobilinogen 1 mg/dl (Normal)
[2021-02-18 18:25] LABS: ALB/GLOB Ratio 0.5 RATIO (0.9-2.4); AST(SGOT) 15 U/L (15-37); Alanine Aminotransfer ALT/SGPT 22 U/L (16-61); Albumin, Serum 2.8 g/dL (3.2-5.0); Alkaline Phosphatase 102 U/L (45-117); Anion Gap 9 (5-15); BUN 15 mg/dL (7-18); BUN/Creat Ratio 15.2 RATIO (10-20); Calcium,Total 8.9 mg/dL (8.5-10.1); Chloride 98 mmol/L (98-107); Creatinine, Serum 0.98 mg/dL (0.70-1.30); EST Glomerular Filtration Rate 83 mL/min (>60); Est Glom Filt Rate - Afr Amer 100 mL/min (>60); Estimated Creatinine Clearance 81.16 ml/min; Globulin 5.1 g/dL (2.2-4.2); Glucose 104 mg/dL (74-106); Potassium 3.5 mmol/L (3.5-5.1); Protein, Total 7.9 g/dL (6.4-8.2); Sodium Level 132 mmol/L (136-145)
[2021-02-18 18:33] LABS: International Normalized Ratio 1.2
[2021-02-18 18:35] LABS: Partial Thromboplast Time 47.1 Seconds (24.1-36.2)
[2021-02-18 18:46] LABS: Lactic Acid 1.4 mmol/L (0.4-1.9)
[2021-02-18 18:54] LABS: Urine Bilirubin Dipstick 1 mg/dL (Negative)
[2021-02-18 18:57] LABS: Amorphous Sediment 1+ URATE; Red Blood Cells-Urine 0-5 SEEN /hpf (0-5); Squamous Epithelial Cells - UA 0-5 SEEN /hpf (0-5); White Blood Cells 0-5 SEEN /hpf (0-5)
--- NOTE | 2021-02-18 18:59 | RAD_ITS ---
INDICATION: fever, cough EXAMINATION/TECHNIQUE: X-RAY - XR Chest 1 View COMPARISON: 01/11/2021. FINDINGS: Right-sided cardiac device. 6.5 x 4 cm cavitating lung lesion in the medial aspect of the right lower lung. Tortuous and calcified thoracic aorta. The heart is not enlarged. No pleural effusion or pneumothorax. No acute osseous abnormalities. Metallic densities overlying the right shoulder. RAD/Chest 1 View (Portable) IMPRESSION: 6.5 cm cavitating lung lesion in the right lower lung. Considering this lesion was not present one month ago, infection (such as pulmonary abscess) is the most likely cause. Electronically Signed: Apollo Sepulveda MD at 19:23 EDT Tel , Service support ,
[2021-02-18 19:40] LABS: Absolute Lymphocyte Count 0.84 X10^3/uL (0.83-4.51); Absolute Neutrophil Count 17.6 X10^3/uL (2.0-7.7); Basophil# 0.07 X10^3/uL; Basophil% 0.3 % (0-1); Eosinophil# 0.02 X10^3/uL; Eosinophils% 0.1 % (0-5); Hemoglobin 12.1 g/dL (13.0-16.5); Lymphocyte # 0.84 X10^3/ul (4.0); Lymphocyte % 4.2 % (19-41); Mean Corp Hgb Conc 31.8 g/dL (32-36); Mean Corpuscular Hgb 26.5 pg (27.0-32.0); Mean Corpuscular Volume 83.3 fL (80-94); Mean Platelet Vol. 9.9 fl (6.2-12.0); Monocyte# 1.49 X10^3/uL; Monocyte% 7.4 % (0-10); NRBC Flagged by Analyzer 0 % (0-5); Neutrophil % 87.6 % (47-70); Platelet Count 322 K/mm3 (150-450); RBC Distribution Width CV 13.4 % (11.6-14.6); RBC Distribution Width SD 41.1 fl (35.1-43.9); Red Blood Count 4.56 M/mm3 (4.6-6.2); White Blood Count 20.1 K/mm3 (4.4-11.0)
[2021-02-18] MEDS: 0.9% Normal Saline 1,000 ML 999 ML IV ×2 (19:40→21:36)
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
[2021-02-18] MEDS: guaiFENesin 1,200 MG Tablet 1200 MG PO (21:37)
[2021-02-18] MEDS: oxyCODONE 5 MG Tablet 10 MG PO (22:46)
--- NOTE | 2021-02-18 23:16 | PCM.RX.CS ---
Consult Pharmacy has been consulted to manage selected antiobiotic: Vancomycin Type of Consult: New start Suspected Infection: Sepsis Prior Doses of Antibiotics Received/Current Regimen: Medications Vancomycin HCl (Vancomycin) 1,000 mg in 200 mls @ 200 mls/hr IV Q12H [place] Vancomycin HCl 1,500 mg/ (Sodium Chloride) 530 mls @ 250 mls/hr IV X1 ONE Stop: 02/18/21 23:37 Last Admin: 02/18/21 22:46 Dose: 250 mls/hr Labs: Sodium 132 mmol/L (136-145) L 02/18/21 17:50 Potassium 3.5 mmol/L (3.5-5.1) 02/18/21 17:50 Chloride 98 mmol/L (98-107) 02/18/21 17:50 Carbon Dioxide 25.0 mmol/L (21.0-32.0) 02/18/21 17:50 Anion Gap 9 (5-15) 02/18/21 17:50 BUN 15 mg/dL (7-18) 02/18/21 17:50 Creatinine 0.98 mg/dL (0.70-1.30) 02/18/21 17:50 Est GFR (MDRD) Af Amer 100 mL/min (>60) 02/18/21 17:50 Est GFR (MDRD) Non-Af 83 mL/min (>60) 02/18/21 17:50 BUN/Creatinine Ratio 15.2 RATIO (10-20) 02/18/21 17:50 Glucose 104 mg/dL (74-106) 02/18/21 17:50 Microbiology: Microbiology 02/18/21 17:51 Mucosa - Nose SARS-CoV-2 Antigen (Rapid) - Final Weight used for dosin.9 kg Estimated Creatinine Clearance: 81 Goal Trough: 15-20 mcg/mL Pharmacy Plan for Drug Dosing: Pharmacy Service will continue to monitor and adjust dosing as required. Follow-Up Labs: Trough Vancomycin Labs to be done on [date and time ordered]: 02/20/21 @1030
[2021-02-19] VITALS (9 sets, daily range): BP systolic 93–141; BP diastolic 50–80; PULSE 76–92; RESP 16–22; TEMP 36.7–37.9; O2SAT 92–99
[2021-02-19] MEDS: HYDROmorphone 0.5 MG/0.5 ML SYRINGE IV ×6 (00:44→21:18)
[2021-02-19] MEDS: MELATONIN 3 MG TABLET PO (00:58)
[2021-02-19] MEDS: oxyCODONE 5 MG Tablet 10 MG PO ×4 (05:59→19:26)
[2021-02-19 06:37] LABS: Absolute Lymphocyte Count 0.85 X10^3/uL (0.83-4.51); Absolute Neutrophil Count 14.9 X10^3/uL (2.0-7.7); Basophil# 0.06 X10^3/uL; Basophil% 0.3 % (0-1); Hemoglobin 10.8 g/dL (13.0-16.5); Lymphocyte # 0.85 X10^3/ul (4.0); Lymphocyte % 4.8 % (19-41); Mean Corp Hgb Conc 31.8 g/dL (32-36); Mean Corpuscular Hgb 26.7 pg (27.0-32.0); Mean Corpuscular Volume 84.2 fL (80-94); Mean Platelet Vol. 9.3 fl (6.2-12.0); Monocyte# 1.67 X10^3/uL; Monocyte% 9.5 % (0-10); NRBC Flagged by Analyzer 0 % (0-5); Neutrophil # 14.85 X10^3/uL (2.7-7.7); Neutrophil % 84.8 % (47-70); POSITIVE DIFFERENTIAL YES; Platelet Count 264 K/mm3 (150-450); RBC Distribution Width CV 13.5 % (11.6-14.6); Red Blood Count 4.04 M/mm3 (4.6-6.2); White Blood Count 17.5 K/mm3 (4.4-11.0)
[2021-02-19 06:44] LABS: Differential Indicated SCAN CRITERIA MET
[2021-02-19 07:03] LABS: Differential Comment SCANNED
[2021-02-19 07:05] LABS: Anion Gap 8 (5-15); BUN 14 mg/dL (7-18); BUN/Creat Ratio 20.1 RATIO (10-20); Calcium,Total 8.3 mg/dL (8.5-10.1); Chloride 102 mmol/L (98-107); EST Glomerular Filtration Rate 123 mL/min (>60); Est Glom Filt Rate - Afr Amer 149 mL/min (>60); Estimated Creatinine Clearance 93.05 ml/min; Glucose 112 mg/dL (74-106); Potassium 3.7 mmol/L (3.5-5.1); Sodium Level 133 mmol/L (136-145)
[2021-02-19] MEDS: guaiFENesin 1,200 MG Tablet 1200 MG PO ×2 (08:39→22:22)
[2021-02-19] MEDS: Enoxaparin 40 MG/0.4 ML Syringe SC (08:40)
[2021-02-19] MEDS: Gabapentin 300 MG Capsule PO ×3 (08:40→18:15)
[2021-02-19] MEDS: Docusate Sodium 100 MG Capsule PO ×2 (09:59→22:22)
[2021-02-19] MEDS: morphine SR 15 MG Tablet PO ×2 (09:59→22:21)
--- NOTE | 2021-02-19 10:27 | PN_ITS ---
Patient Problems: Active and Suspected Problems (Last Reviewed 02/19/21 @ 02:[address] Shad Swan MD) Sepsis (Acute) Subjective: He is to have right-sided thoracic pain. Remains afebrile though still has a leukocytosis Vitals/I&O's: Vital Signs Temp Pulse Resp BP Pulse Ox 98.4 F 84 20 H 126/64 H 98 02/19/21 08:29 02/19/21 08:29 02/19/21 08:29 02/19/21 08:29 02/19/21 08:29 Oxygen Flow Rate (L/min) 2 Oxygen Delivery Method Nasal Cannula Weight: 127 lb 10.362 oz Body Mass Index (BMI) 18.8 Intake and Output for Last 24 Hours 02/17/21 02/18/21 02/19/21 23:59 23:59 23:59 Intake Total 2150 / 2350 1720 / 1720 Output Total 375 / 375 Balance 2150 / 2350 1345 / 1345 General: Alert, Oriented x3, Cooperative, No apparent distress HEENT: Atraumatic, PERRLA, EOMI, Normocephalic Oral: Moist Mucosa Neck: Supple, No JVD Lungs: Clear to auscultation, Normal air movement, No rhonchi, No wheeze, No rales Cardiovascular: Regular rate, Regular Rhythm, Normal S1, Normal S2, No murmurs Abdomen: Soft, Non Tender, Non-Distended, No Hepato-splenomegaly Extremities: No edema, Capillary Refill Less than 3 Seconds Skin: No rashes, No breakdown Neurological: Neuro grossly intact, Sensory exam intact to light touch and pain Psych/Mental Status: Normal Affect, Appropriate Microbiology Past 72 Hours 02/19/21 00:00 Sputum, Expectorated/Coughed Gram Stain - Final 02/18/21 18:10 Urine, Clean Catch Legionella Antigen - Final 02/18/21 18:10 Urine, Clean Catch Streptococcus pneumoniae Antigen (M - Final 02/18/21 17:51 Mucosa - Nose SARS-CoV-2 Antigen (Rapid) - Final Laboratory Results 02/18/21 17:50: PT 15.0 H, INR 1.2, APTT 47.1 H 02/18/21 17:50: Sodium 132 L, Potassium 3.5, Chloride 98, Carbon Dioxide 25.0, Anion Gap 9, BUN 15, Creatinine 0.98, Estim Creat Clear Calc 81.16, Est GFR (MDRD) Af Amer 100, Est GFR (MDRD) Non-Af 83, BUN/Creatinine Ratio 15.2, Glucose 104, Calcium 8.9, Total Bilirubin 0.70, AST 15, ALT 22, Alkaline Phosphatase 102, Total Protein 7.9, Albumin 2.8 L, Globulin 5.1 H, Albumin/Globulin Ratio 0.5 L 02/18/21 17:50: Lactic Acid 1.4 02/18/21 17:50: WBC 20.1 H, RBC 4.56 L, Hgb 12.1 L, Hct 38.0 L, MCV 83.3, MCH 26.5 L, MCHC 31.8 L, RDW Std Deviation 41.1, RDW Coeff of Ranulfo 13.4, Plt Count 322, MPV 9.9, Immature Gran % (Auto) 0.400, Neut % (Auto) 87.6 H, Lymph % (Auto) 4.2 L, [place] % (Auto) 7.4, Eos % (Auto) 0.1, Baso % (Auto) 0.3, Absolute Neuts (auto) 17.6 H, Absolute Lymphs (auto) 0.84, Nucleated RBC % 0 02/18/21 18:10: Urine Color Yellow, Urine Clarity Sl. Cloudy, Urine pH 5.0, Ur Specific [place] 1.020, Urine Protein 30 H, Urine Glucose (UA) Normal, Urine Ketones 50 H, Urine Occult Blood 50 H, Urine Nitrite Negative, Urine Bilirubin 1 H, Urine Urobilinogen 1 H, Ur Leukocyte Esterase 25 H, Urine RBC 0-5 SEEN, Urine WBC 0-5 SEEN, Ur Squamous Epith Cells 0-5 SEEN, Amorphous Sediment 1+ URATE, Urine Bacteria 0 SEEN, Urine Mucus 0 SEEN 02/19/21 06:14: WBC 17.5 H, RBC 4.04 L, Hgb 10.8 L, Hct 34.0 L, MCV 84.2, MCH 26.7 L, MCHC 31.8 L, RDW Std Deviation 42.0, RDW Coeff of Ranulfo 13.5, Plt Count 264, MPV 9.3, Immature Gran % (Auto) 0.600, Neut % (Auto) 84.8 H, Lymph % (Auto) 4.8 L, [place] % (Auto) 9.5, Eos % (Auto) 0.0, Baso % (Auto) 0.3, Absolute Neuts ( auto) 14.9 H, Absolute Lymphs (auto) 0.85, Nucleated RBC % 0, Differential Comment SCANNED, Diff Path Review March02/19/21 06:14: Sodium 133 L, Potassium 3.7, Chloride 102, Carbon Dioxide 23.0, Anion Gap 8, BUN 14, Creatinine 0.70, Estim Creat Clear Calc 93.05, Est GFR (MDRD) Af Amer 149, Est GFR (MDRD) Non-Af 123, BUN/Creatinine Ratio 20.1 H, Glucose 112 H, Calcium 8.3 L Current Medications Acetaminophen (Acetaminophen 325 Mg Tablet) 650 mg PO Q6H PRN PRN PRN Reason: Pain Score 1-10/Temp > 100.7 F Albuterol Sulfate (Albuterol 2.5 Mg/3 Ml Vial.Neb.) 2.5 mg INHALATION Q2H PRN PRN PRN Reason: sob/wheezing Docusate Sodium (Docusate Sodium 100 Mg Capsule) 100 mg PO BID [facility] Last Admin: 02/19/21 09:59 Dose: 100 mg Documented by: Enoxaparin Sodium (Enoxaparin 40 Mg/0.4 Ml Syringe) 40 mg SC DAILY [facility] Last Admin: 02/19/21 08:40 Dose: 40 mg Documented by: Gabapentin (Gabapentin 300 Mg Capsule) 300 mg PO TIDCM [facility] Last Admin: 02/19/21 08:40 Dose: 300 mg Documented by: Guaifenesin (Guaifenesin 1,200 Mg Tablet) 1,200 mg PO BID [facility] Last Admin: 02/19/21 08:39 Dose: 1,200 mg Documented by: Hydromorphone HCl (Hydromorphone 0.5 Mg/0.5 Ml Syringe) 0.5 mg IV Q3H PRN PRN PRN Reason: .BREAKTHROUGH PAIN Last Admin: 02/19/21 07:29 Dose: 0.5 mg Documented by: Levofloxacin (Levaquin Iv) 750 mg in 150 mls @ 100 mls/hr IV Q24@2200 [facility] Vancomycin IV Pharmacy to Dose (1 each/ Sodium Chloride) 500 mls @ 250 mls/hr IV PRN PRN; Protocol PRN Reason: Rx to Dose Sodium Chloride () 250 mls @ 15 mls/hr IV .[id number] PRN PRN Reason: Saline Flush Vancomycin HCl (Vancomycin) 1,000 mg in 200 mls @ 200 mls/hr IV Q12H [facility] Ipratropium [place] (Ipratropium 0.5 Mg/2.5 Ml Solution) 0.5 mg INHALATION Q6HWA.RT [place] Melatonin (Melatonin 3 Mg Tablet) 3 mg PO QHS PRN PRN PRN Reason: INSOMNIA Last Admin: 02/19/21 00:58 Dose: 3 mg Documented by: Morphine Sulfate (Morphine Sr 15 Mg Tablet) 15 mg PO BID [facility] Last Admin: 02/19/21 09:59 Dose: 15 mg Documented by: Nicotine (Nicotine 14 Mg Patch) 14 mg TD DAILY [facility] Last Admin: 02/19/21 08:40 Dose: 14 mg Documented by: Nutritional Formula (Lactose Free) (Ensure Enlive 120 Ml Liquid) 120 ml PO 4X/DAY [facility] Last Admin: 02/19/21 08:39 Dose: 120 ml Documented by: Ondansetron HCl (Ondansetron 4 Mg/2 Ml Vial) 4 mg IV Q8H PRN PRN PRN Reason: NAUSEA/VOMITING Oxycodone HCl (Oxycodone 5 Mg Tablet) 10 mg PO Q4H PRN PRN PRN Reason: Pain Score 4-10 Last Admin: 02/19/21 09:59 Dose: 10 mg Documented by: Sodium Chloride (0.9% Saline Lock 10 Ml Syringe) 10 - 40 ml IV UD PRN PRN Reason: SALINE FLUSH STROKE Vital Signs/Narrative: Vital Signs Temp Pulse Resp BP Pulse Ox 02/19/21 08:29 98.4 F 84 20 H 126/64 H 98 Medical Necessity - Tobacco Use Smoking Status: Former smoker Tobacco Use: Cigarettes Assessment/Plan All Active Problems (Last Reviewed 02/19/21 @ 02:[address] Shad Swan MD) Sepsis (Acute) Right lower lobe lung mass (Acute) 1. 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 twice daily as well as continuing his oxycodone 10 mg every 4 -Given the amount of narcotics he is going to have, will add Colace and if necessary MiraLAX -Discussed tobacco cessation 2. HTN/nonischemic cardiomyopathy -Echo with an EF of 55% and pulmonary artery systolic pressure 33 mmHg -Continue with Coreg and lisinopril DVT: Lovenox Inpatient E&M: 22707 Subs Hosp L2
[2021-02-19] MEDS: Vancomycin IV 1,000 MG/200 ML BAG 200 MG IV (11:51)
--- NOTE | 2021-02-19 12:11 | CASEMGMT ---
MARIANNE GONZALEZ NOTE: Dr Newton requests Palliative consult for pain mgmt. Order placed. Demographics sheet faxed to Palliative care and call placed to Palliative care. VM left re: notifying them of same. Jez PETERSON RN CM
--- NOTE | 2021-02-19 14:55 | CASEMGMT ---
RN CARLOS INSURANCE SERVICE REPRESENTATIVE CM to room to meet with patient for initial transition planning/care coordination assessment. RN CARLOS introduced self and role at [facility].? Pt voices understanding and consents to assessment at this time.? Pt resting in bed. Pt is A/O at this time and answers all questions appropriately.?? Care providers, pharmacy, and demographics verified/updated at this time. PCP: JUAN Frances Specialists: Dr Johnstonascrin-oncology, Dr Stallings cardiovascular surgeon @ [facility], Dr Reza-cardiology. Preferred Pharmacy: [facility] Insurance: [employer], [employer] Prescription Benefit:? Yes Living Will/HPOA:? States does not have LW or HCPOA .? Interested in more information but states does not want to talk with SW at this time to complete paperwork but states may be feeling more up to it on Sunday if he is still @ the hospital.? Provided information on advanced directives and given Social Service rac card with number to call if chooses in the future to utilize [facility] social work for advanced directive completion, if he does not complete them on Sunday. Jennifer HERRERA, made aware. LNOK: Pt is not and has no children. His parents are . has 2 sisters and many brothers, stating, there's like 7 or 8 of us all-together. Lives w/signif other, Tiffany--states they have been together over 20 yrs. Pt states he would want his sister, Theresa, to be POEmily. He states is unsure of how to spell her name but thinks it is Caleb. Pt made aware that Pat is the only contact listed on demographcis. He states to add Theresa. Same done at this time. Living Arrangements: Lives w/his signif other, Tiffany, in 2-story home. 2 steps to enter. Denies difficulty w/stairs. All the bedrooms are on 2nd floor. Bathrooms on each level. 3 of Tiffany's grand-children live with them and they are helping to care fo them--a 10 yr-old, a 5 yr-old, and an 8 mo-old grandbaby, who currently is involved with Children's services. Pt states he receives finances from disability and food stamps. He states just recently just sent in paperwork to try and get on [employer] through [employer] and is awaiting approval. He denies need to speak w/SW for further resources. Transportation: Pt and Pat DME: ? Denies using any DME and denies needs.? Pt currently on 2 L/M O2. Does not have home O2. Pt provided w/list of local DME co's. Preference is [employer] if he would qualify for O2 @ d/c. HHC/SNF: No history of either. Palliative Care: Pt states Dr Castro just did Palliative referral. Pt states he has an appt on 03/01 to get this initiated. Pt wishes to return home and states has no concerns with going home at time of discharge.? RN to follow for home oxygen needs and any further discharge planning/needs.? Pt voices no further concerns/needs at this time.? Advised pt to ask for CM if any further questions/concerns/needs arise.? Voices understanding. PLAN: ?Home. Follow for any O2 needs @ discharge. Palliative care made aware pt has been admitted to [facility] Jez GARNERN RN CM
[2021-02-19] MEDS: Acetaminophen 325 MG Tablet 650 MG PO (21:17)
[2021-02-19] MEDS: levoFLOXacin IV 750 MG/150 ML BAG 100 MG IV (22:21)
[2021-02-19] MEDS: Carvedilol 12.5 MG Tablet PO (22:22)
[2021-02-20] VITALS (10 sets, daily range): BP systolic 96–121; BP diastolic 52–71; PULSE 70–92; RESP 16–20; TEMP 36.5–38; O2SAT 93–96
[2021-02-20] MEDS: Vancomycin IV 1,000 MG/200 ML BAG 200 MG IV ×3 (00:24→18:32)
[2021-02-20] MEDS: oxyCODONE 5 MG Tablet 10 MG PO ×3 (02:51→16:25)
[2021-02-20] MEDS: Acetaminophen 325 MG Tablet 650 MG PO ×2 (05:37→21:02)
[2021-02-20 05:42] LABS: Absolute Lymphocyte Count 0.78 X10^3/uL (0.83-4.51); Absolute Neutrophil Count 13.8 X10^3/uL (2.0-7.7); Basophil# 0.04 X10^3/uL; Basophil% 0.2 % (0-1); Eosinophil# 0.06 X10^3/uL; Eosinophils% 0.4 % (0-5); Lymphocyte # 0.78 X10^3/ul (4.0); Lymphocyte % 4.8 % (19-41); Mean Corp Hgb Conc 33.3 g/dL (32-36); Mean Corpuscular Hgb 27.6 pg (27.0-32.0); Mean Corpuscular Volume 82.9 fL (80-94); Mean Platelet Vol. 9.4 fl (6.2-12.0); Monocyte# 1.33 X10^3/uL; Monocyte% 8.1 % (0-10); NRBC Flagged by Analyzer 0 % (0-5); Neutrophil # 13.81 X10^3/uL (2.7-7.7); Neutrophil % 84.1 % (47-70); Platelet Count 251 K/mm3 (150-450); RBC Distribution Width CV 13.3 % (11.6-14.6); RBC Distribution Width SD 40.7 fl (35.1-43.9); Red Blood Count 3.98 M/mm3 (4.6-6.2); White Blood Count 16.4 K/mm3 (4.4-11.0)
[2021-02-20 05:56] LABS: Anion Gap 7 (5-15); BUN 13 mg/dL (7-18); BUN/Creat Ratio 19.1 RATIO (10-20); Calcium,Total 8.4 mg/dL (8.5-10.1); Chloride 98 mmol/L (98-107); Creatinine, Serum 0.68 mg/dL (0.70-1.30); EST Glomerular Filtration Rate 127 mL/min (>60); Est Glom Filt Rate - Afr Amer 153 mL/min (>60); Estimated Creatinine Clearance 95.79 ml/min; Glucose 119 mg/dL (74-106); Potassium 3.5 mmol/L (3.5-5.1); Sodium Level 132 mmol/L (136-145)
[2021-02-20] MEDS: Ipratropium 0.5 MG/2.5 ML SOLUTION INHALATION ×3 (06:35→19:25)
[2021-02-20] MEDS: HYDROmorphone 0.5 MG/0.5 ML SYRINGE IV ×3 (07:05→18:43)
[2021-02-20] MEDS: Gabapentin 300 MG Capsule PO ×3 (07:39→16:28)
[2021-02-20] MEDS: Docusate Sodium 100 MG Capsule PO ×2 (09:29→21:06)
[2021-02-20] MEDS: Carvedilol 12.5 MG Tablet PO ×2 (09:30→21:06)
[2021-02-20] MEDS: guaiFENesin 1,200 MG Tablet 1200 MG PO ×2 (09:31→21:06)
[2021-02-20] MEDS: Lisinopril 5 MG Tablet PO (09:31)
[2021-02-20] MEDS: morphine SR 15 MG Tablet PO ×2 (09:34→21:03)
--- NOTE | 2021-02-20 10:00 | PN_ITS ---
Patient Problems: Active and Suspected Problems (Last Reviewed 02/19/21 @ 02:[address] Shad Swan MD) Sepsis (Acute) Subjective: Pain is a been a little bit better managed with the addition of the MS Contin. Vitals/I&O's: Vital Signs Temp Pulse Resp BP Pulse Ox 98.4 F 88 16 113/54 L 96 02/20/21 07:26 02/20/21 07:26 02/20/21 07:26 02/20/21 07:26 02/20/21 07:26 Oxygen Flow Rate (L/min) 2 Oxygen Delivery Method Nasal Cannula Weight: 127 lb 10.362 oz Body Mass Index (BMI) 18.8 Intake and Output for Last 24 Hours 02/18/21 02/19/21 02/20/21 23:59 23:59 23:59 Intake Total 2150 / 2350 2970 / 2970 200 / 200 Output Total 1175 / 1325 350 / 350 Balance 2150 / 2350 1795 / 1645 -150 / -150 General: Alert, Oriented x3, Cooperative, No apparent distress HEENT: Atraumatic, PERRLA, EOMI, Normocephalic Oral: Moist Mucosa Neck: Supple, No JVD Lungs: Clear to auscultation, Normal air movement, No rhonchi, No wheeze, No rales Cardiovascular: Regular rate, Regular Rhythm, Normal S1, Normal S2, No murmurs Abdomen: Soft, Non Tender, Non-Distended, No Hepato-splenomegaly Extremities: No edema, Capillary Refill Less than 3 Seconds Skin: No rashes, No breakdown Neurological: Neuro grossly intact, Sensory exam intact to light touch and pain Psych/Mental Status: Normal Affect, Appropriate Microbiology Past 72 Hours 02/19/21 00:00 Sputum, Expectorated/Coughed Gram Stain - Final 02/19/21 00:00 Sputum, Expectorated/Coughed Respiratory Culture - Preliminary Streptococcus group C 02/18/21 18:10 Urine, Clean Catch Legionella Antigen - Final 02/18/21 18:10 Urine, Clean Catch Streptococcus pneumoniae Antigen (M - Final 02/18/21 17:51 Mucosa - Nose SARS-CoV-2 Antigen (Rapid) - Final Laboratory Results 02/20/21 05:36: WBC 16.4 H, RBC 3.98 L, Hgb 11.0 L, Hct 33.0 L, MCV 82.9, MCH 27.6, MCHC 33.3, RDW Std Deviation 40.7, RDW Coeff of Ranulfo 13.3, Plt Count 251, MPV 9.4, Immature Gran % (Auto) 2.400 H, Neut % (Auto) 84.1 H, Lymph % (Auto) 4.8 L, Frio % (Auto) 8.1, Eos % (Auto) 0.4, Baso % (Auto) 0.2, Absolute Neuts (auto) 13.8 H, Absolute Lymphs (auto) 0.78 L, Nucleated RBC % 0 02/20/21 05:36: Sodium 132 L, Potassium 3.5, Chloride 98, Carbon Dioxide 27.0, Anion Gap 7, BUN 13, Creatinine 0.68 L, Estim Creat Clear Calc 95.79, Est GFR (MDRD) Af Amer 153, Est GFR (MDRD) Non-Af 127, BUN/Creatinine Ratio 19.1, Glucose 119 H, Calcium 8.4 L Current Medications Acetaminophen (Acetaminophen 325 Mg Tablet) 650 mg PO Q6H PRN PRN PRN Reason: Pain Score 1-10/Temp > 100.7 F Last Admin: 02/20/21 05:37 Dose: 650 mg Documented by: Albuterol Sulfate (Albuterol 2.5 Mg/3 Ml Vial.Neb.) 2.5 mg INHALATION Q2H PRN PRN PRN Reason: sob/wheezing Carvedilol (Carvedilol 12.5 Mg Tablet) 12.5 mg PO BID [facility] Last Admin: 02/20/21 09:30 Dose: 12.5 mg Documented by: Docusate Sodium (Docusate Sodium 100 Mg Capsule) 100 mg PO BID [facility] Last Admin: 02/20/21 09:29 Dose: 100 mg Documented by: Enoxaparin Sodium (Enoxaparin 40 Mg/0.4 Ml Syringe) 40 mg SC DAILY [facility] Last Admin: 02/20/21 09:30 Dose: Not Given Documented by: Gabapentin (Gabapentin 300 Mg Capsule) 300 mg PO TIDCM [facility] Last Admin: 02/20/21 07:39 Dose: 300 mg Documented by: Guaifenesin (Guaifenesin 1,200 Mg Tablet) 1,200 mg PO BID [facility] Last Admin: 02/20/21 09:31 Dose: 1,200 mg Documented by: Hydromorphone HCl (Hydromorphone 0.5 Mg/0.5 Ml Syringe) 0.5 mg IV Q3H PRN PRN PRN Reason: .BREAKTHROUGH PAIN Last Admin: 02/20/21 07:05 Dose: 0.5 mg Documented by: Levofloxacin (Levaquin Iv) 750 mg in 150 mls @ 100 mls/hr IV Q24@2200 [facility] Last Infusion: 02/19/21 23:51 Dose: Infused Documented by: Vancomycin IV Pharmacy to Dose (1 each/ Sodium Chloride) 500 mls @ 250 mls/hr IV PRN PRN; Protocol PRN Reason: Rx to Dose Sodium Chloride () 250 mls @ 15 mls/hr IV .[id number] PRN PRN Reason: Saline Flush Vancomycin HCl (Vancomycin) 1,000 mg in 200 mls @ 200 mls/hr IV Q12H [facility] Last Infusion: 02/20/21 01:24 Dose: Infused Documented by: Ipratropium Central (Ipratropium 0.5 Mg/2.5 Ml Solution) 0.5 mg INHALATION Q6HWA.RT [facility] Last Admin: 02/20/21 06:35 Dose: 0.5 mg Documented by: Ketorolac Tromethamine (Ketorolac 15 Mg/Ml Vial) 15 mg IV Q6H PRN PRN PRN Reason: Pain Score 1-10 Stop: 02/23/21 10:00 Lisinopril (Lisinopril 5 Mg Tablet) 5 mg PO DAILY [facility] Last Admin: 02/20/21 09:31 Dose: 5 mg Documented by: Melatonin (Melatonin 3 Mg Tablet) 3 mg PO QHS PRN PRN PRN Reason: INSOMNIA Last Admin: 02/19/21 00:58 Dose: 3 mg Documented by: Morphine Sulfate (Morphine Sr 15 Mg Tablet) 15 mg PO BID [facility] Last Admin: 02/20/21 09:34 Dose: 15 mg Documented by: Nicotine (Nicotine 14 Mg Patch) 14 mg TD DAILY [facility] Last Admin: 02/20/21 09:31 Dose: 14 mg Documented by: Nutritional Formula (Lactose Free) (Ensure Enlive 120 Ml Liquid) 120 ml PO 4X/DAY [facility] Last Admin: 02/20/21 09:34 Dose: 120 ml Documented by: Ondansetron HCl (Ondansetron 4 Mg/2 Ml Vial) 4 mg IV Q8H PRN PRN PRN Reason: NAUSEA/VOMITING Oxycodone HCl (Oxycodone 5 Mg Tablet) 10 mg PO Q4H PRN PRN PRN Reason: Pain Score 4-10 Last Admin: 02/20/21 02:51 Dose: 10 mg Documented by: Sodium Chloride (0.9% Saline Lock 10 Ml Syringe) 10 - 40 ml IV UD PRN PRN Reason: SALINE FLUSH STROKE Vital Signs/Narrative: Vital Signs Temp Pulse Resp BP Pulse Ox 02/20/21 07:26 98.4 F 88 16 113/54 L 96 02/20/21 06:37 87 17 93 Medical Necessity - Tobacco Use Smoking Status: Former smoker Tobacco Use: Cigarettes Assessment/Plan All Active Problems (Last Reviewed 02/19/21 @ 02:[address] Shad Swan MD) Sepsis (Acute) Right lower lobe lung mass (Acute) 1. 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 twice daily as well as continuing his oxycodone 10 mg every 4 -We will add Toradol IV as needed -Given the amount of narcotics he is going to have, will add Colace and if necessary MiraLAX -Discussed tobacco cessation 2. HTN/nonischemic cardiomyopathy -Echo with an EF of 55% and pulmonary artery systolic pressure 33 mmHg -Continue with Coreg and lisinopril DVT: Lovenox Inpatient E&M: 31093 Subs Hosp L2
[2021-02-20 11:32] LABS: Vancomycin, Trough Level 6.5 ug/mL (5.0-15.0)
--- NOTE | 2021-02-20 12:14 | PCM.RX.CS ---
Consult Pharmacy has been consulted to manage selected antiobiotic: Vancomycin Type of Consult: Follow-up Labs: Sodium 132 mmol/L (136-145) L 02/20/21 05:36 Potassium 3.5 mmol/L (3.5-5.1) 02/20/21 05:36 Chloride 98 mmol/L (98-107) 02/20/21 05:36 Carbon Dioxide 27.0 mmol/L (21.0-32.0) 02/20/21 05:36 Anion Gap 7 (5-15) 02/20/21 05:36 BUN 13 mg/dL (7-18) 02/20/21 05:36 Creatinine 0.68 mg/dL (0.70-1.30) L 02/20/21 05:36 Est GFR (MDRD) Af Amer 153 mL/min (>60) 02/20/21 05:36 Est GFR (MDRD) Non-Af 127 mL/min (>60) 02/20/21 05:36 BUN/Creatinine Ratio 19.1 RATIO (10-20) 02/20/21 05:36 Glucose 119 mg/dL (74-106) H 02/20/21 05:36 Vancomycin Trough 6.5 ug/mL (5.0-15.0) 02/20/21 10:39 Microbiology: Microbiology 02/19/21 00:00 Sputum, Expectorated/Coughed Gram Stain - Final 02/19/21 00:00 Sputum, Expectorated/Coughed Respiratory Culture - Preliminary Streptococcus group C 02/18/21 18:10 Urine, Clean Catch Legionella Antigen - Final 02/18/21 18:10 Urine, Clean Catch Streptococcus pneumoniae Antigen (M - Final 02/18/21 17:51 Mucosa - Nose SARS-CoV-2 Antigen (Rapid) - Final Goal Trough: 15-20 mcg/mL Pharmacy Plan for Drug Dosing: VANCOMYCIN LEVEL RECEIVED Current Vancomycin Dose: 1000mg IV Q12hr Number of Doses Received: 4 (3 prior to trough draw) Vancomycin Level: 6.5 Hours Since Last Dose: 10.5 Renal Function: 0.68 Renal Function Trend: stable Lab/Micro: SCx = strep, BCx pending Vancomycin Plan/Comments: Trough came back low wih a value of 6.5 (Goal 15-20). Will increase patient's dose to 1g IV Q8hr to start 02/20 @1900, as pt's 1g dose from 1100 was already hung. Pending Level: 02/21/21 @1830 (Prior to 4th total dose of new regimen per protocol) Pharmacy Service will continue to monitor and adjust dosing as required.
[2021-02-20] MEDS: levoFLOXacin IV 750 MG/150 ML BAG 100 MG IV (21:02)
[2021-02-21] MEDS: oxyCODONE 5 MG Tablet 10 MG PO ×3 (01:08→14:01)
[2021-02-21] MEDS: Vancomycin IV 1,000 MG/200 ML BAG 200 MG IV ×2 (02:39→10:45)
[2021-02-21 02:45] VITALS: BP 96/57; PULSE 85; RESP 18; TEMP 36.8; O2SAT 95
[2021-02-21 05:08] VITALS: BP 102/61; PULSE 86; RESP 18; TEMP 36.7; O2SAT 96
[2021-02-21] MEDS: HYDROmorphone 0.5 MG/0.5 ML SYRINGE IV ×3 (05:20→16:38)
[2021-02-21 06:43] LABS: Absolute Lymphocyte Count 1.06 X10^3/uL (0.83-4.51); Absolute Neutrophil Count 14.8 X10^3/uL (2.0-7.7); Basophil# 0.03 X10^3/uL; Basophil% 0.2 % (0-1); Eosinophil# 0.14 X10^3/uL; Eosinophils% 0.8 % (0-5); Hematocrit 32.2 % (40-54); Hemoglobin 10.6 g/dL (13.0-16.5); Lymphocyte # 1.06 X10^3/ul (4.0); Lymphocyte % 5.9 % (19-41); Mean Corp Hgb Conc 32.9 g/dL (32-36); Mean Corpuscular Volume 81.9 fL (80-94); Mean Platelet Vol. 9.4 fl (6.2-12.0); Monocyte# 1.87 X10^3/uL; Monocyte% 10.3 % (0-10); NRBC Flagged by Analyzer 0 % (0-5); Neutrophil # 14.78 X10^3/uL (2.7-7.7); Neutrophil % 81.7 % (47-70); POSITIVE DIFFERENTIAL YES; Platelet Count 241 K/mm3 (150-450); RBC Distribution Width CV 13.5 % (11.6-14.6); RBC Distribution Width SD 40.4 fl (35.1-43.9); Red Blood Count 3.93 M/mm3 (4.6-6.2); White Blood Count 18.1 K/mm3 (4.4-11.0)
[2021-02-21] MEDS: Acetaminophen 325 MG Tablet 650 MG PO (06:46)
[2021-02-21 06:53] LABS: Differential Indicated SCAN CRITERIA MET
[2021-02-21 07:15] VITALS: PULSE 88; RESP 20; O2SAT 95
[2021-02-21] MEDS: Gabapentin 300 MG Capsule PO ×3 (07:45→16:39)
[2021-02-21 08:04] VITALS: BP 103/61; PULSE 84; RESP 16; TEMP 36.4; O2SAT 98
[2021-02-21] MEDS: morphine SR 15 MG Tablet PO (09:15)
[2021-02-21] MEDS: Docusate Sodium 100 MG Capsule PO (09:16)
[2021-02-21] MEDS: Carvedilol 12.5 MG Tablet PO (09:16)
[2021-02-21] MEDS: guaiFENesin 1,200 MG Tablet 1200 MG PO (09:17)
[2021-02-21] MEDS: Lisinopril 5 MG Tablet PO (09:18)
--- NOTE | 2021-02-21 09:36 | CASEMGMT ---
TC to Palliative to verify that referral was received that was sent over the weekend. Left message on vm asking for returned call.
[2021-02-21] MEDS: Ketorolac 15 MG/ML Vial IV (10:45)
[2021-02-21] MEDS: 0.9% Saline Lock 10 ML Syringe IV ×2 (11:24→16:39)
[2021-02-21 12:06] LABS: Pathologist Review Reviewed
[2021-02-21 12:06] LABS: Pathologist Review Reviewed
--- NOTE | 2021-02-21 12:07 | CASEMGMT ---
Addendum entered by Janae Jones 02/21/21 13:20: SW spoke w/Aye from Palliative care, palliative will come see pt this afternoon. SW let pt's bedside RN know, she let physician know and will let pt know. KAYLAH Harding Original Note: SW met w/pt in room, support offered as pt has a new cancer diagnosis. Additionally, he and his significant other(Pat) of over 20 years are caring for three of her grandchildren, ages 8 months, 5 years old and 10 years old. The pt's significant other has custody of the 5 year old. She is also trying to get a fourth child, who is two, from [place], so they can all be together. They are all the children of significant other's daughter. Pt spoke about caring for the children and the difficulty in getting to all needed appointments for both he and Pat. SW offered support, also offered some ideas for resources, pt was already familiar w/all resources SW mentioned. SW reviewed also w/pt the forms for LW/POA. Pt is not sure he wants to complete them just yet, but may complete the forms on his own. SW explained that without the forms, since he and his significant other are not , if he was not able to make decisions, his siblings would need to come to a consensus. Pt states understanding. SW gave pt the blank forms and the number to call should he want assist to complete the forms as an outpatient. Pt is also to see Palliative Care but pt has not heard if he will be seen today. SW explained will call to find out and let him know. SW called Palliative care, awaiting a call back in regard to whether or not pt will be seen today. SW will let pt know once this SW hears back. KAYLAH Harding
[2021-02-21 14:07] VITALS: BP 101/61; PULSE 76; RESP 16; TEMP 36.9; O2SAT 96
--- NOTE | 2021-02-21 16:07 | DCINST_ITS ---
- Discharge Diagnoses Current Active Problems: Current Active and Chronic Problems (Last Reviewed 02/19/21 @ 02:[address] Shad Swan MD) Sepsis (Acute) You will use the following diet at home:: No restrictions Your food should be the consistency of: Regular Your liquids should be the consistency of: Regular/Thin Discharge Activity: Return to Normal Activity Weight Bearing Status: Full weight bearing Additional Instructions: Pain medication per palliative care Allergies/Adverse Reactions: Allergies naproxen Allergy (Verified 02/18/21 17:16) GI bleed GIB Medications to take at Discharge Carvedilol [Coreg] 12.5 mg PO BID 02/06/14 Gabapentin [Neurontin] 300 mg PO TIDCM 09/11/14 lisinopril 5 mg tablet 5 mg PO DAILY tab 12/15/20 Albuterol IH (ProAir) [Proair Hfa (SP)Vent Pts] 1 - 2 puff INHALATION Q4H PRN PRN 02/15/21 Spiriva Respimat 2 puff INHALATION DAILY 02/15/21 Dexamethasone [Decadron] 4 mg PO BIDCM 02/18/21 Nicotine [Nicoderm] 14 mg TD DAILY #30 patch 02/21/21 levoFLOXacin tablet [Levaquin tablet] 750 mg PO DAILY #7 tab 02/21/21 The following prescriptions were given: levoFLOXacin tablet [Levaquin tablet] 750 mg PO DAILY #7 tab Transmission Status: Sent to [facility] Nicotine [Nicoderm] 14 mg TD DAILY #30 patch Transmission Status: Sent to [facility] Primary Care Physician: Jorje Frances PROPERTY ASSESSMENT MONITOR, PROPERTY ASSESSMENT MONITOR-C [Primary Care Provider] - Please follow up with your Primary Care Physician in: in 7 days Test Results: Test results from this visit will be discussed in further detail at your follow- up appointment, if applicable. Please Follow Up With: Sandeep Castro DO When: this week
--- NOTE | 2021-02-21 16:29 | CASEMGMT ---
Addendum entered by Lou Rodriguez 02/21/21 16:40: Received call back from [facility] who states she was checking and their liasion went out to see the patient on 02/15/21 and now the insurance review came back that they are out of network. Dr. Daly to come speak with pt. Original Note: [facility], [facility] ANESTHESIOLOGY PHYSICIAN ASSISTANT stated pt insurance is out of network for her services. Went in to pt room to discuss with him. Pt states he cannot afford to pay if Palliative is out of network. He states he had Palliative come to his house recently who stated they would be back on the of this month, but does not know who it was through. States ordered it. Spoke with[facility] who states it is not [facility]. Notified of the above.
--- NOTE | 2021-02-21 20:06 | NURSING ---
Late note: This pt called [facility] and stated that he had just been discharged and that the pharmacy would not fill his prescription for Oxy. I contacted Dr. Daly and he stated that he will call [facility]. Pt was upset that he may not be able to get this script filled. I advised him to give Dr. Daly time to call the pharmacy and then call the pharmacy and see what the status is at that time.
--- NOTE | 2021-02-21 20:30 | NURSING ---
Late note: Dr. Daly called this RN back and stated that he called [facility] and the pt should be able to get the Oxyir tonight but may have to pay more for it or use a discount card. The problem is with his insurance and has nothing to do with the script that was written. The Oxycontin probably cannot be obtained tonight d/t insurance reasons. Dr. Daly wanted me to call the pt and inform them of this and I did.
--- NOTE | 2021-02-22 15:04 | CASEMGMT ---
MARIANNE GONZALEZ Discharge Follow Up Phone Call: LACE: 14 Strata: 3 Call Date: 02/22/21 Discharge Date: 02/21/21 Time of Call: 1504 Duration: <1 min Admitting Dx: sepsis RN CARLOS attempted to complete follow up phone call after recent hospitalization. No answer at number listed. Message not left due to no identifier on vm.
--- NOTE | 2021-02-22 18:59 | PCM.DC.SUM ---
Discharge Date and Diagnosis - Problem List Patient Problems: Active and Suspected Problems (Last Reviewed 02/19/21 @ 02:[address] Shad Swan MD) Sepsis (Acute) Date of Admission: 02/18/21 Date of Discharge: 02/22/21 - Primary Discharge Diagnosis Acute Problems: Active Problems (Last Reviewed 02/19/21 @ 02:[address] Shad Swan MD) #1 acute sepsis secondary to postobstructive pneumonia right lung with Streptococcus group C #2 squamous cell carcinoma of the right lung-chronic #3 uncontrolled pain secondary to #2 #4 nonischemic cardiomyopathy #5 essential hypertension I do not feel the patient had a right lung abscess - Secondary Discharge Diagnosis Chronic Problems: Chronic Problems (Last Reviewed 02/19/21 @ 02:[address] Shad Swan MD) Cardiac resynchronization therapy defibrillator (RECREATION PROGRAM COORDINATOR-D) in place (Chronic 09/10/14) RA extraction d/t malfunction and dual chamber ICD upgraded to RECREATION PROGRAM COORDINATOR-D 06/16/2008, Left chest RECREATION PROGRAM COORDINATOR-D extracted due to malfunctioning leads (pocket swabs grew propionibacterium) 01/2014; Re implant of RECREATION PROGRAM COORDINATOR-D to right chest 09/10/14 [place] Non-ischemic cardiomyopathy (Chronic) LBBB (left bundle branch block) (Chronic) H/O sustained ventricular tachycardia (Chronic) Per EPS 04/2003 Chronic systolic (congestive) heart failure (Chronic) Essential hypertension (Chronic) Nicotine dependence (Chronic) Hospital Course and Treatment Operations: None Procedures: None Summary of Care Provided: The patient is a 60 year old M was seen in the emergency room at [facility] with a chief complaint of right-sided mid back pain. Patient was recently diagnosed with right lower lobe squamous cell carcinoma. Work-up in the emergency room included labs which showed an elevated white blood cell count of 20.1, patient's chemistry profile was unremarkable, urinalysis was unremarkable, Covid rapid antigen test was negative. Patient's chest x-ray showed a right lower lung mass, there was read out a possible abscess in the area but this examiner did not feel that this was present. Patient was felt to be septic from postobstructive pneumonia in the right lower lobe, he was admitted to [place] [address] and placed on pain medication, it was felt that his pain was probably secondary to his right lower lung tumor. Patient improved during his hospital stay, his sputum culture grew out group C Streptococcus. Patient's blood culture showed no growth. Patient was seen and examined on 02/21/2021: On examination he appeared in good health and spirits. Vital signs as documented. Skin warm and dry and without overt rashes. Neck without JVD, neck was supple, trachea midline, thyroid was normal. Lungs clear bilaterally, normal air movement was noted. Heart exam notable for regular rhythm, normal sounds and absence of murmurs, rubs or gallops. Abdomen unremarkable and without evidence of organomegaly, masses, or abdominal aortic enlargement. Bowel sounds are present, abdomen is not distended. Extremities nonedematous, no cyanosis was noted, no clubbing was noted. Neuro: Cranial nerves II through XII are grossly intact, no focal motor deficits were noted, sensation to light touch and pinprick intact, motor exam 5/5 throughout. Psych: Patient is alert and oriented x3, he does not appear anxious or depressed, he does not appear agitated. Patient was felt to be stable for discharge on 02/21/2021, I talked with his oncologist prior to discharge, initially he agreed to see palliative care in the hospital but palliative care was not in his insurance plan and so he elected not to see palliative care at the present time. Patient Problems: Active and Suspected Problems (Last Reviewed 02/19/21 @ 02:[address] Shad Swan MD) Sepsis (Acute) - Physical Exam Vitals/I&O's: Vital Signs Temp Pulse Resp BP Pulse Ox 98.4 F 76 16 101/61 96 02/21/21 14:07 02/21/21 14:07 02/21/21 14:07 02/21/21 14:07 02/21/21 14:07 Oxygen Flow Rate (L/min) 1 Oxygen Delivery Method Room Air Weight: 57.9 kg Body Mass Index (BMI) 18.8 Intake and Output for Last 24 Hours 02/20/21 02/21/21 02/22/21 23:59 23:59 23:59 Intake Total 750 / 750 1200 / 1200 Output Total 800 / 1100 1300 / 1300 Balance -50 / -350 -100 / -100 Microbiology Past 72 Hours 02/19/21 00:00 Sputum, Expectorated/Coughed Gram Stain - Final 02/19/21 00:00 Sputum, Expectorated/Coughed Respiratory Culture - Final Streptococcus group C 02/18/21 18:20 Blood Culture (Wb) - No Site/Description Given Blood Culture - Preliminary No growth in 48 hours. 02/18/21 17:50 Blood Culture (Wb) - Anticubital Left Blood Culture - Preliminary No growth in 48 hours. Discharge Activity: Return to Normal Activity Weight Bearing Status: Full weight bearing Home Medications: Medications to take at Discharge Carvedilol [Coreg (Beta Myriam)] 12.5 mg PO BID 02/06/14 Gabapentin [Neurontin] 300 mg PO TIDCM 09/11/14 lisinopril 5 mg tablet 5 mg PO DAILY tab 12/15/20 Albuterol IH (ProAir) [Proair Hfa] 1 - 2 puff INHALATION Q4H PRN PRN 02/15/21 Spiriva Respimat 2 puff INHALATION DAILY 02/15/21 Dexamethasone [Decadron] 4 mg PO BIDCM 02/18/21 Nicotine [Nicoderm] 14 mg TD DAILY #30 patch 02/21/21 Oxycodone CR [Oxycontin] 20 mg PO BID 15 Days #30 tab 02/21/21 Oxycodone HCl 20 mg PO Q4H PRN PRN 7 Days #40 tablet 02/21/21 levoFLOXacin tablet [Levaquin tablet] 750 mg PO DAILY #7 tab 02/21/21 Oxycodone Myristate [Xtampza ER] 18 mg PO BID 14 Days #30 cap.spr.12 02/22/21 Following Prescriptions Were Given to Patient: levoFLOXacin tablet [Levaquin tablet] 750 mg PO DAILY #7 tab Transmission Status: Received by [facility]30 Nicotine [Nicoderm] 14 mg TD DAILY #30 patch Transmission Status: Received by [facility]30 Oxycodone HCl 20 mg PO Q4H PRN PRN 7 Days #40 tablet PRN Reason: Pain Score 4-10 Transmission Status: Received by [facility]30 Oxycodone CR [Oxycontin] 20 mg PO BID 15 Days #30 tab Transmission Status: Received by [facility]30 Oxycodone Myristate [Xtampza ER] 18 mg PO BID 14 Days #30 cap.spr.12 Transmission Status: Received by [facility]30 Primary Care Physician: Jorje Frances NEIGHBORHOOD SERVICE CENTER DIRECTOR, NEIGHBORHOOD SERVICE CENTER DIRECTOR-C [Primary Care Provider] - Please follow up with your Primary Care Physician in: in 7 days Please Follow Up With: Sandeep Castro DO When: this week Disposition: Home Minutes spent on discharge:: 32 Patient Condition:: Stable Medical Necessity - Tobacco Use Smoking Status: Former smoker Tobacco Use: Cigarettes Meaningful Use Info Meaningful Use Diagnoses (Choose all that apply): None applicable Inpatient E&M: 21251 Disch Hosp
== END 2021-02-21 19:17 | disposition home or self-care (01) | DRG 194 ==
LOC: ED 18:05 → MS3 20:43
PROVIDERS: Family Medicine; Admitting Provider Hospitalist; Emergency Provider Emergency Medicine; PCP Nurse Practitioner Family; Visit Provider Internal Medicine
DX: J15.4 Pneumonia due to other streptococci (principal); I42.8 Other cardiomyopathies; C34.31 Malignant neoplasm of lower lobe, right bronchus or lung; I10 Essential (primary) hypertension; M54.6 Pain in thoracic spine; Z79.899 Other long term (current) drug therapy; Z79.51 Long term (current) use of inhaled steroids; F17.210 Nicotine dependence, cigarettes, uncomplicated
CPT/HCPCS: 36415; 71045; 71275; 80048; 80053; 80202; 81001; 83605; 84484; 85025; 85610; 85730; 87040; 87070; 87077; 87205; 87426; 87449; 93005; 94640; 94762; 96374; 96375; 96376; 97110; 97161; 97165; 97530; 97535; 97802; 99282; 99284; 99406; J7030; J7040; Q9967; A4216; J2405

== ENCOUNTER 2021-02-23 12:06 | Inpatient (IN) | payer MEDICARE, MEDICAID, SELFPAY ==
[2021-02-18 21:06] VITALS: BMI 18.8
[2021-02-23] VITALS (9 sets, daily range): BP systolic 93–120; BP diastolic 53–65; PULSE 70–159; RESP 12–18; TEMP 36.6–38.4; O2SAT 90–97; BMI 20.4
--- NOTE | 2021-02-23 12:44 | EKG12_ITS ---
Test Reason : SOB Blood Pressure : / mmHG Vent. Rate : 084 BPM Atrial Rate : 084 BPM P-R Int : 000 ms QRS Dur : 134 ms QT Int : 408 ms P-R-T Axes : 000 269 075 degrees QTc Int : 482 ms Ventricular-paced rhythm Biventricular pacemaker detected Abnormal ECG Confirmed by CORAL LEW, BEL ([id number]), editorial cartoonist MITZI DREW ([id number]) on 02/25/2021 2:38:26 PM Referred By: DESTINY Confirmed By:FIDELIA MONCADA MD
[2021-02-23 13:04] LABS: Bacteria 0 SEEN /hpf (None Seen); Mucous, Urine 0 SEEN /hpf (<or=2+)
[2021-02-23 13:09] LABS: Color, Urine Yellow (Yellow); Glucose, Dipstick Normal (Normal); Ketone-Dipstick Negative (Negative); Leukocyte Esterase-Dipstick 25 /ul (Negative); Nitrite-Dipstick Negative (Negative); Occult Blood-Urine 10 /ul (Negative); Protein-Dipstick 15 mg/dl (Negative); Specific Gravity, Urine 1.015 (1.002-1.030); Urine Bilirubin Dipstick Negative (Negative); Urine Clarity Sl. Cloudy (Clear); Urine Urobilinogen Normal (Normal)
[2021-02-23 13:16] LABS: Hyaline Cast 0-5 SEEN /lpf (0-5); Red Blood Cells-Urine 0-5 SEEN /hpf (0-5); Squamous Epithelial Cells - UA 0-5 SEEN /hpf (0-5); White Blood Cells 0-5 SEEN /hpf (0-5)
[2021-02-23 13:18] LABS: Absolute Lymphocyte Count 1.22 X10^3/uL (0.83-4.51); Absolute Neutrophil Count 18.8 X10^3/uL (2.0-7.7); Basophil# 0.07 X10^3/uL; Basophil% 0.3 % (0-1); Eosinophil# 0.14 X10^3/uL; Eosinophils% 0.6 % (0-5); Hematocrit 31.3 % (40-54); Hemoglobin 10.2 g/dL (13.0-16.5); Lymphocyte # 1.22 X10^3/ul (4.0); Lymphocyte % 5.3 % (19-41); Mean Corp Hgb Conc 32.6 g/dL (32-36); Mean Corpuscular Hgb 27.1 pg (27.0-32.0); Mean Corpuscular Volume 83.2 fL (80-94); Mean Platelet Vol. 8.9 fl (6.2-12.0); Monocyte# 2.14 X10^3/uL; Monocyte% 9.2 % (0-10); NRBC Flagged by Analyzer 0 % (0-5); Neutrophil # 18.76 X10^3/uL (2.7-7.7); POSITIVE DIFFERENTIAL YES; Platelet Count 301 K/mm3 (150-450); RBC Distribution Width CV 14.1 % (11.6-14.6); RBC Distribution Width SD 42.9 fl (35.1-43.9); Red Blood Count 3.76 M/mm3 (4.6-6.2); White Blood Count 23.2 K/mm3 (4.4-11.0)
[2021-02-23 13:19] LABS: Differential Indicated SCAN CRITERIA MET
[2021-02-23] MEDS: Acetaminophen 500 MG Tablet 1000 MG PO (13:19)
[2021-02-23] MEDS: 0.9% Normal Saline 1,000 ML 999 ML IV (13:20)
--- NOTE | 2021-02-23 13:25 | RAD_ITS ---
STUDY: X-RAY CHEST REASON FOR EXAM: Male, 60 years old. Fever TECHNIQUE: Single AP portable view of the chest. COMPARISON: 02/15/2021 and 02/18/2021. FINDINGS: Stable 6.4 cm x 6.3 cm mass in the posterior medial segment of the right lower lobe. New ill-defined groundglass opacities are seen adjacent to the mass in the right lung base may represent superimposed pneumonia. There is no demonstrated pleural abnormality. Normal size heart. Normal mediastinum and claudia. Normal visualized pulmonary arteries. Normal visualized aortic arch and descending thoracic aorta. Normal visualized thoracic spine. Post surgical changes in the right clavicle. There is no demonstrated abnormality of the visualized soft tissue structures of the upper abdomen. RAD/Chest 1 View (Portable) IMPRESSION: New ill-defined groundglass opacities are seen adjacent to the mass in the right lung base may represent superimposed pneumonia. Electronically Signed: Jorge Rodrigues MD at 13:54 EDT Tel , Service support ,
[2021-02-23 13:26] LABS: International Normalized Ratio 1.2; Prothrombin Time (Protime)PT. 14.3 SECONDS (11.7-14.9)
[2021-02-23 13:27] LABS: Partial Thromboplast Time 39.8 Seconds (24.1-36.2)
[2021-02-23 13:33] LABS: ALB/GLOB Ratio 0.5 RATIO (0.9-2.4); AST(SGOT) 68 U/L (15-37); Alanine Aminotransfer ALT/SGPT 48 U/L (16-61); Albumin, Serum 2.2 g/dL (3.2-5.0); Alkaline Phosphatase 106 U/L (45-117); Anion Gap 5 (5-15); BUN 42 mg/dL (7-18); BUN/Creat Ratio 24.9 RATIO (10-20); Calcium,Total 8.5 mg/dL (8.5-10.1); Chloride 94 mmol/L (98-107); Creatinine, Serum 1.69 mg/dL (0.70-1.30); EST Glomerular Filtration Rate 44 mL/min (>60); Est Glom Filt Rate - Afr Amer 54 mL/min (>60); Estimated Creatinine Clearance 41.07 ml/min; Globulin 4.7 g/dL (2.2-4.2); Glucose 109 mg/dL (74-106); Potassium 3.4 mmol/L (3.5-5.1); Protein, Total 6.9 g/dL (6.4-8.2); Sodium Level 128 mmol/L (136-145)
[2021-02-23 13:44] LABS: Lactic Acid 1.4 mmol/L (0.4-1.9)
[2021-02-23] MEDS: Vancomycin IV 1,000 MG/200 ML BAG 200 MG IV (14:53)
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
--- NOTE | 2021-02-23 15:22 | ED.DCSUM_ITS ---
- ER Visit Summary Date of Service: 02/23/21 Chief Complaint: Fever History of Present Illness: The patient is a [address] Reza, Dr. Castro, and Dr. Youssef. Patient has a recent diagnosis of lung cancer. He was admitted from February 18 to February 21 with a postobstructive pneumonia that grew group C strep. He was discharged on Levaquin. His last dose was this morning. However, he reports that he developed a fever today. Patient reports that he has a cough is productive of clearish colored sputum. He denies any blood in the sputum. He does report he had bloody sinus drainage with blowing his nose this morning. He complains of a sore throat for the past 2 days. He denies any other complaints. Physical Examination: Vitals: One 1.2, 118/59, 87, 16, 92% on room air which is not hypoxic. General: Well-nourished and well-developed. Head: Normocephalic atraumatic. Neck: Supple, no lymphadenopathy. No JVD. Nontender. Cardiovascular: Regular rate and rhythm. No murmurs. Respiratory: No respiratory distress. Clear to auscultation bilaterally. Abdominal: Soft, nontender, nondistended, normal bowel sounds. No guarding, rebound, or peritoneal signs. Back: Nontender. Extremities: Nontender, no edema. Skin: Normal color, no rash. Neurologic: Alert and oriented ?3. Cranial nerves II through XII are intact. Normal strength and sensation. Psych: Normal affect. Test Results: EKG is AV paced at 84 with positive sensing capture. Lactic acid is 1.4. UA is negative. LFTs show an AST of 68. INR is 1.2. PTT is 39.8. Rapid strep is negative. Covid rapid antigen is negative. Chem-7 shows a sodium 128, potassium 3.4, chloride 94, BUN 42, creatinine 1.69. CBC shows a white count of 23.2 with 81 segmented neutrophils, 5 lymphocytes, and 3.6% immature granulocytes. Lymphocytes of 5. H&H is 10.2 and 31.3. Clinical Impression(s) from Imaging Studies Chest X-Ray 02/23/21 13:25 IMPRESSION: New ill-defined groundglass opacities are seen adjacent to the mass in the right lung base may represent superimposed pneumonia. Electronically Signed: Jorge Rodrigues MD at 13:54 EDT Tel , Service support , Emergency Department Course and Treatment: Patient had an IV placed. He was given a liter of normal saline. He was given Zosyn and vancomycin IV. I feel that he has failed outpatient treatment on Levaquin. He was given Tylenol p.o. Treatment Plan: Patient was discussed with Dr. Iraheta. He will be admitted to the hospital for further evaluation and treatment. Disposition: Admitted in improved condition. Impression: 1. Postobstructive pneumonia with outpatient treatment failure. 2. Lung cancer. 3. Hyponatremia. 4. Sepsis. This note was generated with [employer] dictation software. It may contain incorrect words, spelling, and punctuation that were not noted in review of the chart prior to signing ED Disposition - Plan for ED Patient: Referrals: Jorje Frances NP, [employer] [Primary Care Provider] -
--- NOTE | 2021-02-23 15:27 | NURSING ---
MED SURG WHITE PNEUMONIA
[2021-02-23] MEDS: 0.9% Normal Saline 1,000 ML 100 ML IV (16:23)
[2021-02-23 16:33] LABS: Phosphorus 3.6 mg/dL (2.5-4.9)
[2021-02-23] MEDS: Potassium Chloride Oral Tablet 20 MEQ 40 MEQ PO (19:03)
[2021-02-23] MEDS: Gabapentin 300 MG Capsule PO (19:04)
[2021-02-23] MEDS: oxyCODONE 5 MG Tablet 20 MG PO (19:06)
--- NOTE | 2021-02-23 19:10 | PCM.RX.CS ---
Consult Pharmacy has been consulted to manage selected antiobiotic: Vancomycin Type of Consult: New start Suspected Infection: Pneumonia Labs: Sodium 128 mmol/L (136-145) L 02/23/21 13:04 Potassium 3.4 mmol/L (3.5-5.1) L 02/23/21 13:04 Chloride 94 mmol/L (98-107) L 02/23/21 13:04 Carbon Dioxide 29.0 mmol/L (21.0-32.0) 02/23/21 13:04 Anion Gap 5 (5-15) 02/23/21 13:04 BUN 42 mg/dL (7-18) H 02/23/21 13:04 Creatinine 1.69 mg/dL (0.70-1.30) H 02/23/21 13:04 Est GFR (MDRD) Af Amer 54 mL/min (>60) L 02/23/21 13:04 Est GFR (MDRD) Non-Af 44 mL/min (>60) L 02/23/21 13:04 BUN/Creatinine Ratio 24.9 RATIO (10-20) H 02/23/21 13:04 Glucose 109 mg/dL (74-106) H 02/23/21 13:04 Microbiology: Microbiology 02/23/21 12:54 Mucosa - Nose SARS-CoV-2 Antigen (Rapid) - Final 02/23/21 12:54 Mucosa - Throat Group A Streptococcus Rapid Screen - Preliminary Goal Trough: 15-20 mcg/mL Pharmacy Plan for Drug Dosing: NEW START IV VANCOMYCIN Consulting Physician: Dr. Iraheta Indication: PNA Goal Trough: 15-20 SrCr: 1.69 CrCl: 41 mL/min Comments: Pt had 1000mg IV x1 in ED 02/23/21 @1453. Vancomcyin Dose: 500mg IV Q12hr to start 02/24/21 @0300 NOTE: Pt was previously on vancomycin at time of last visit (afew days ago). Had low trough while on 1g IV Q12hr, but renal function worse at time of admission this time. Will follow traditional protocol dosing given change in renal function, will not put pt on previous dosing from last admission. Pending Level: 02/25/21 @0230 Pharmacy Service will continue to monitor and adjust dosing as required.
[2021-02-23] MEDS: Ipratropium/Albuterol Sulfate 3 ML AMPUL.NEB INHALATION (19:20)
[2021-02-23] MEDS: Carvedilol 12.5 MG Tablet PO (22:12)
[2021-02-24] VITALS (11 sets, daily range): BP systolic 100–128; BP diastolic 56–66; PULSE 74–95; RESP 16–20; TEMP 36.9–37.7; O2SAT 94–99
[2021-02-24] MEDS: 0.9% Normal Saline 1,000 ML 100 ML IV ×3 (01:30→17:26)
[2021-02-24] MEDS: oxyCODONE 5 MG Tablet 20 MG PO ×6 (01:30→23:53)
[2021-02-24] MEDS: Vancomycin IV 500 MG/100 ML BAG 100 MG IV (02:59)
[2021-02-24 06:48] LABS: Absolute Neutrophil Count 12.7 X10^3/uL (2.0-7.7); Basophil# 0.04 X10^3/uL; Basophil% 0.2 % (0-1); Differential Indicated SCAN CRITERIA MET; Eosinophil# 0.27 X10^3/uL; Eosinophils% 1.7 % (0-5); Hemoglobin 8.4 g/dL (13.0-16.5); Lymphocyte % 6.8 % (19-41); Mean Corp Hgb Conc 32.3 g/dL (32-36); Mean Corpuscular Hgb 27.1 pg (27.0-32.0); Mean Corpuscular Volume 83.9 fL (80-94); Mean Platelet Vol. 8.8 fl (6.2-12.0); Monocyte# 1.85 X10^3/uL; Monocyte% 11.4 % (0-10); NRBC Flagged by Analyzer 0 % (0-5); Neutrophil # 12.72 X10^3/uL (2.7-7.7); Neutrophil % 78.4 % (47-70); POSITIVE DIFFERENTIAL YES; Platelet Count 275 K/mm3 (150-450); RBC Distribution Width CV 14.5 % (11.6-14.6); White Blood Count 16.2 K/mm3 (4.4-11.0)
[2021-02-24 07:16] LABS: ALB/GLOB Ratio 0.4 RATIO (0.9-2.4); AST(SGOT) 41 U/L (15-37); Alanine Aminotransfer ALT/SGPT 32 U/L (16-61); Albumin, Serum 1.6 g/dL (3.2-5.0); Alkaline Phosphatase 88 U/L (45-117); Anion Gap 4 (5-15); BUN 30 mg/dL (7-18); BUN/Creat Ratio 21.9 RATIO (10-20); Calcium,Total 7.8 mg/dL (8.5-10.1); Chloride 102 mmol/L (98-107); Creatinine, Serum 1.37 mg/dL (0.70-1.30); EST Glomerular Filtration Rate 57 mL/min (>60); Est Glom Filt Rate - Afr Amer 68 mL/min (>60); Estimated Creatinine Clearance 53.54 ml/min; Globulin 3.7 g/dL (2.2-4.2); Glucose 115 mg/dL (74-106); Potassium 3.8 mmol/L (3.5-5.1); Protein, Total 5.3 g/dL (6.4-8.2); Sodium Level 133 mmol/L (136-145)
[2021-02-24] MEDS: Ipratropium/Albuterol Sulfate 3 ML AMPUL.NEB INHALATION ×3 (07:16→19:30)
--- NOTE | 2021-02-24 08:07 | CT_ITS ---
EXAM: CT CHEST WITHOUT INTRAVENOUS CONTRAST CLINICAL INDICATION: Concern for RLL pulmonary abscess TECHNIQUE: Helically acquired images were obtained of the chest without intravenous contrast. This CT exam was performed using one or more of the following dose reduction techniques: automated exposure control, adjustment of the mA and/or kV according to patient size, and/or use of iterative reconstruction technique. This report was created using [employer] report generation technology. COMPARISON: CTA chest 02/15/[address] chest without contrast 01/17/2021. FINDINGS: LUNGS AND PLEURAL SPACES: Large mass in the posterior basilar segment of the right lower lobe now contains an air-fluid level. This is surrounded by subpleural atelectases and right pleural fluid. Moderate right posterior pleural fluid and mild left posterior pleural fluid are new findings. Pulmonary hyperinflation without associated centrilobular cysts or paraseptal cysts. HEART: Unremarkable. Heart size is normal. No pericardial effusion. MEDIASTINUM: Unremarkable. No mediastinal or hilar adenopathy. Esophagus is unremarkable. No hiatal hernia. THYROID: Unremarkable. No thyroid lesions. BONES/JOINTS: Unremarkable. No suspicious lytic or blastic abnormality. VASCULATURE: Unremarkable. Thoracic aorta is non-dilated. TUBES, LINES AND DEVICES: Pacing lead tips in the right atrium, right ventricle and left ventricle are unchanged. At least 1 cm right anterior pericardial fluid is new. CT/Chest without Contrast IMPRESSION: 1. Interval development of an air-fluid level inside the large mass in the posterior right lower lobe. This is worrisome for abscess and is feasible for CT guided diagnostic and therapeutic drain catheter placement. 2. New moderate right posterior pleural fluid and new small left posterior pleural fluid. 3. New 1 cm thick right anterior pericardial fluid. 4. Airway predominant type of COPD is unchanged. Electronically Signed: Johnson Quintero MD at 9:13 EDT , Service support ,
[2021-02-24 08:10] LABS: M R Staph aureus DNA By PCR Negative (Negative); Probe Check PASS; Specimen Processing Control PASS
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
[2021-02-24] MEDS: 0.9% Saline Lock 10 ML Syringe IV (08:25)
[2021-02-24] MEDS: Gabapentin 300 MG Capsule PO ×3 (09:10→17:24)
[2021-02-24] MEDS: Carvedilol 12.5 MG Tablet PO ×2 (10:47→21:24)
--- NOTE | 2021-02-24 11:00 | CASEMGMT ---
Per [facility] web site, the following tertiary facilities are in network: [facility], [place], [facility], [facility], [facility], [place], [facility] and . RN CM in to pt room. CM gave pt a printout of Palliative Care that accepts his insurance. Pt states he is planning on being trf'd to another facility. Pt expresses concern with his dx. He denies need to speak to SW.
[2021-02-24] MEDS: Psyllium 1 PACKET PO (13:48)
--- NOTE | 2021-02-24 14:09 | NURSING ---
The medication that was locked in med social media marketing specialist room sent home w/girlfriend, Tiffany Sandoval per patient's request.
[2021-02-24 14:16] LABS: Pathologist Review Reviewed
--- NOTE | 2021-02-24 14:21 | CASEMGMT ---
RN CM Readmission Note: Pt admitted to [facility] from .01.09-02.21.21 for sepsis d/t postobstructive pna R lung. Pt with recent dx of squamous cell carcinoma of R lung. Pt had negative blood cx and improved during stay. Pt was to have Palliative Care see him but palliative care was not in network with insurance.Pt dc'd to follow up with Dr. Castro. Pt readmitted on 02.23.21 with possible postobstructive pna vs pulmonary abscess. Pt had appt with for radiation and had a temp which prompted pt to be sent to the ER. Pt had pulmonary consult and may trf to [facility] for possible percutaneous drainage.
--- NOTE | 2021-02-24 17:42 | PCM.PROGNOTE ---
Patient Problems: Active and Suspected Problems (Last Reviewed 02/19/21 @ 02:[address] Shad Swan MD) Sepsis (Acute) Pneumonia (Acute) Hyponatremia (Acute) THOR (acute kidney injury) (Acute) Subjective: Patient was seen and examined today, he is presently on 2 L via nasal cannula. I talked with pulmonology today about his care and pulmonology felt there was a very good chance that the patient did have a right lower lung abscess, I talked with infectious diseases on the phone and they stated that they recommended the patient be transferred to another facility where he could be evaluated by cardiothoracic surgeon. [facility] contacted [facility] today and they agreed to accept the patient but had no beds currently. I feel the patient is currently stable, his white count today was better and he has been afebrile today. I dropped the patient's vancomycin and continued him on Zosyn. I let his oncologist know of the plan to transfer him if possible. - Physical Exam Vitals/I&O's: Vital Signs Temp Pulse Resp BP Pulse Ox 98.9 F 80 18 113/61 96 02/24/21 16:49 02/24/21 16:49 02/24/21 16:49 02/24/21 16:49 02/24/21 16:49 Oxygen Flow Rate (L/min) 2 Oxygen Delivery Method Nasal Cannula Weight: 65.2 kg Body Mass Index (BMI) 20.4 Intake and Output for Last 24 Hours 02/22/21 02/23/21 02/24/21 23:59 23:59 23:59 Intake Total 1260.5 / 1260.5 3519.75 / 3519.75 Balance 1260.5 / 1260.5 3519.75 / 3519.75 General: Alert, Oriented x3, Cooperative, No apparent distress, Well developed HEENT: Atraumatic, PERRLA, EOMI, Normocephalic Oral: Moist Mucosa Neck: Supple, No JVD, Trachea Midline, Thyroid Normal Size and Texture Lungs: Clear to auscultation, Normal air movement, No rhonchi, No wheeze Cardiovascular: Regular rate, Regular Rhythm, Normal S1, Normal S2, No murmurs, PMI Normal, No rub noted, No Gallop Abdomen: Bowel Sounds Present, Soft, Non Tender, Non-Distended Extremities: No clubbing, No cyanosis, No edema, Capillary Refill Less than 3 Seconds Skin: No rashes, No breakdown Musculoskeletal: No Tenderness to Palpation of Joints or Extremities Neurological: Cranial nerves II-XII grossly intact, Neuro grossly intact, Sensory exam intact to light touch and pain Psych/Mental Status: Normal Affect, Appropriate, Alert and oriented to time, place, person, mood and affect Microbiology Past 72 Hours 02/23/21 17:00 Sputum, Expectorated/Coughed Gram Stain - Final 02/23/21 17:00 Sputum, Expectorated/Coughed Respiratory Culture - Preliminary Appears to be normal respiratory marcos. Further studies to follow. 02/23/21 12:54 Urine, Clean Catch Urine Culture - Preliminary Culture exhibits no growth. 02/23/21 12:54 Urine, Clean Catch Legionella Antigen - Final 02/23/21 12:54 Urine, Clean Catch Streptococcus pneumoniae Antigen (M - Final 02/23/21 19:17 Mucosa - Nasopharyngeal Respiratory Panel (PCR) - Final 02/23/21 12:54 Mucosa - Nose SARS-CoV-2 Antigen (Rapid) - Final 02/23/21 12:54 Mucosa - Throat Group A Streptococcus Rapid Screen - Preliminary Laboratory Results 02/23/21 13:04: Diff Path Review Reviewed 02/24/21 06:34: WBC 16.2 H, RBC 3.10 L, Hgb 8.4 L, Hct 26.0 L, MCV 83.9, MCH 27.1, MCHC 32.3, RDW Std Deviation 44.0 H, RDW Coeff of Ranulfo 14.5, Plt Count 275, MPV 8.8, Immature Gran % (Auto) 1.500 H, Neut % (Auto) 78.4 H, Lymph % (Auto) 6.8 L, [place] % (Auto) 11.4 H, Eos % (Auto) 1.7, Baso % (Auto) 0.2, Absolute Neuts (auto) 12.7 H, Absolute Lymphs (auto) 1.10, Nucleated RBC % 0, Diff Path Review March02/24/21 06:34: Sodium 133 L, Potassium 3.8, Chloride 102, Carbon Dioxide 27.0, Anion Gap 4 L, BUN 30 H, Creatinine 1.37 H, Estim Creat Clear Calc 53.54, Est GFR (MDRD) Af Amer 68, Est GFR (MDRD) Non-Af 57 L, BUN/Creatinine Ratio 21.9 H, Glucose 115 H, Calcium 7.8 L, Total Bilirubin 0.40, AST 41 H, ALT 32, Alkaline Phosphatase 88, Total Protein 5.3 L, Albumin 1.6 L, Globulin 3.7, Albumin/Globulin Ratio 0.4 L 02/24/21 06:50: MRSA (PCR) Negative Current Medications Acetaminophen (Acetaminophen 325 Mg Tablet) 650 mg PO Q6H PRN PRN PRN Reason: Pain Score 1-10/Temp > 100.7 F Al Hydroxide/Mg Hydroxide (Mag Hydrox/Al Hydrox/Simeth 30 Ml Udc) 30 ml PO Q6H PRN PRN PRN Reason: Gastric Burning Albuterol Sulfate (Albuterol 2.5 Mg/3 Ml Vial.Neb.) 2.5 mg INHALATION Q2H PRN PRN PRN Reason: Dyspnea, wheezing Albuterol/Ipratropium (Ipratropium/Albuterol Sulfate 3 Ml Ampul.Neb) 3 ml INHALATION Q4HWA.RT [facility] Last Admin: 02/24/21 14:49 Dose: 3 ml Documented by: Carvedilol (Carvedilol 12.5 Mg Tablet) 12.5 mg PO BID [facility] Last Admin: 02/24/21 10:47 Dose: 12.5 mg Documented by: Enoxaparin Sodium (Enoxaparin 40 Mg/0.4 Ml Syringe) 40 mg SC DAILY [facility] Last Admin: 02/24/21 10:47 Dose: Not Given Documented by: Gabapentin (Gabapentin 300 Mg Capsule) 300 mg PO TIDCM [facility] Last Admin: 02/24/21 17:24 Dose: 300 mg Documented by: Guaifenesin (Guaifenesin 10 Ml Udc (200mg/10ml)) 20 ml PO Q4H PRN PRN PRN Reason: COUGH Hydralazine HCl (Hydralazine 20 Mg/Ml Vial) 10 mg IV Q4H PRN PRN PRN Reason: SBP > 160 Sodium Chloride () 1,000 mls @ 100 mls/hr IV .Q10H [facility] Last Admin: 02/24/21 17:26 Dose: 100 mls/hr Documented by: Piperacillin Sod/Tazobactam (Sod 3.375 gm/ Sodium Chloride) 50 mls @ 12.5 mls/hr IV Q8 [facility] Last Admin: 02/24/21 13:43 Dose: 12.5 mls/hr Documented by: Sodium Chloride () 250 mls @ 15 mls/hr IV .[id number] PRN PRN Reason: Saline Flush Last Infusion: 02/24/21 10:55 Dose: 0 mls/hr Documented by: Sodium Chloride () 250 mls @ 15 mls/hr IV .[id number] PRN PRN Reason: Additional IVPB Infusion Magnesium Hydroxide (Magnesium Hydroxide 30 Ml Udc) 30 ml PO DAILY PRN PRN PRN Reason: Constipation Melatonin (Melatonin 3 Mg Tablet) 3 mg PO QHS PRN PRN PRN Reason: INSOMNIA Nicotine (Nicotine 14 Mg Patch) 14 mg TD DAILY [facility] Last Admin: 02/24/21 10:48 Dose: 14 mg Documented by: Nitroglycerin (Nitroglycerin (Inpatient Use) 0.4 Mg Tab.Subl) 0.4 mg SL Q5M PRN PRN Reason: CARDIAC/CHEST PAIN Ondansetron HCl (Ondansetron 4 Mg/2 Ml Vial) 4 mg IV Q8H PRN PRN PRN Reason: NAUSEA/VOMITING Oxycodone HCl (Oxycodone 5 Mg Tablet) 20 mg PO Q4H PRN PRN PRN Reason: Pain Score 4-10 Last Admin: 02/24/21 13:48 Dose: 20 mg Documented by: Oxycodone HCl (Oxycodone Cr 20 Mg Tablet) 20 mg PO BID [facility] Last Admin: 02/24/21 10:50 Dose: 20 mg Documented by: Psyllium Hydrophilic Mucilloid (Psyllium 1 Packet) 1 packet PO DAILY PRN PRN PRN Reason: Constipation Last Admin: 02/24/21 13:48 Dose: 1 packet Documented by: Senna/Docusate Sodium (Senna/Docusate Sodium 1 Tablet) 2 tablet PO BID PRN PRN PRN Reason: Constipation Sodium Chloride (0.9% Saline Lock 10 Ml Syringe) 10 - 40 ml IV UD PRN PRN Reason: SALINE FLUSH Last Admin: 02/24/21 08:25 Dose: 20 ml Documented by: Throat Lozenges (Benzocaine/Menthol 1 Lozenge) 1 lozenge MUCOUS MEM Q2H PRN PRN PRN Reason: SORE THROAT Medical Necessity - Tobacco Use Smoking Status: Former smoker Tobacco Use: Cigarettes Assessment/Plan All Active Problems (Last Reviewed 02/19/21 @ 02:[address] Shad Swan MD) Sepsis (Acute) Pneumonia (Acute) Hyponatremia (Acute) THOR (acute kidney injury) (Acute) #1 acute sepsis secondary to right lower lung abscess/pneumonia-continue Zosyn at this time, again patient will be transferred [facility] for further care when a bed is available. 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
[2021-02-24] MEDS: Magnesium Hydroxide 30 ML UDC PO (18:51)
[2021-02-24] MEDS: Ondansetron 4 MG/2 ML Vial IV (20:38)
[2021-02-24] MEDS: Senna/Docusate Sodium 1 Tablet 2 TABLET PO (21:25)
[2021-02-25] VITALS (9 sets, daily range): BP systolic 121–128; BP diastolic 53–64; PULSE 71–104; RESP 18–24; TEMP 36.9–37.8; O2SAT 92–96
[2021-02-25] MEDS: Acetaminophen 325 MG Tablet 650 MG PO ×2 (02:09→20:21)
[2021-02-25] MEDS: 0.9% Normal Saline 1,000 ML 100 ML IV ×2 (03:20→14:20)
[2021-02-25] MEDS: oxyCODONE 5 MG Tablet 20 MG PO ×3 (04:04→17:37)
[2021-02-25] MEDS: Ipratropium/Albuterol Sulfate 3 ML AMPUL.NEB INHALATION ×3 (07:11→19:34)
--- NOTE | 2021-02-25 07:39 | PN_ITS ---
Patient Problems: Active and Suspected Problems (Last Reviewed 02/19/21 @ 02:[address] Shad Swan MD) Sepsis (Acute) Pneumonia (Acute) Hyponatremia (Acute) THOR (acute kidney injury) (Acute) Subjective: The patient was seen and examined at the bedside this morning. Events from the last 24 hours have been reviewed. The patient is currently afebrile, hemodynamically stable and maintaining appropriate oxygen saturations on 2 L/min via nasal cannula. The patient was accepted yesterday for transfer to [facility], but is still awaiting a bed. Objective: The patient's most recent lab work, culture data and imaging studies have all been personally reviewed. CT chest did reveal the interval development of an air-fluid level in the right lower lobe consolidation/mass, which was previously not present. There was also an associated pleural effusion present. Rapid coronavirus antigen testing was negative. Strep and urine Legionella antigens were negative. Blood and urine cultures have demonstrated no growth to date. Respiratory viral panel was negative. Sputum culture has not demonstrated any growth to date. - Physical Exam Vitals/I&O's: Vital Signs Temp Pulse Resp BP Pulse Ox 98.5 F 71 20 H 123/53 H 95 02/25/21 07:26 02/25/21 07:26 02/25/21 07:26 02/25/21 07:26 02/25/21 07:26 Oxygen Flow Rate (L/min) 2 Oxygen Delivery Method Nasal Cannula Weight: 146 lb 9.718 oz Body Mass Index (BMI) 20.4 Intake and Output for Last 24 Hours 02/23/21 02/24/21 02/25/21 23:59 23:59 23:59 Intake Total 1260.5 / 1260.5 3586.00 / 3586.00 1590 / 1590 Balance 1260.5 / 1260.5 3586.00 / 3586.00 1590 / 1590 General: Alert, Cooperative, No apparent distress HEENT: Atraumatic, Normocephalic Oral: Moist Mucosa, No Gingival or Mucosal Lesions/ Ulcerations Neck: Supple, No Nodes, Trachea Midline Lungs: No rhonchi, No wheeze, No rales, Diminished Cardiovascular: Regular rate, Regular Rhythm Abdomen: Bowel Sounds Present, Soft, Non Tender Extremities: No clubbing, No cyanosis, No edema Skin: No breakdown Musculoskeletal: No Tenderness to Palpation of Joints or Extremities Lymphatic: No Cervical, Supraclavicular, or Inguinal Adenopathy Neurological: Cranial nerves II-XII grossly intact, Neuro grossly intact Psych/Mental Status: Normal Affect Labs (Last 48 Hours) 02/23/21 02/23/21 02/23/21 12:54 13:04 13:04 WBC 23.2 H RBC 3.76 L Hgb 10.2 L Hct 31.3 L MCV 83.2 MCH 27.1 MCHC 32.6 RDW Std Deviation 42.9 RDW Coeff of Ranulfo 14.1 Plt Count 301 MPV 8.9 Immature Gran % (Auto) 3.600 H Neut % (Auto) 81.0 H Lymph % (Auto) 5.3 L [place] % (Auto) 9.2 Eos % (Auto) 0.6 Baso % (Auto) 0.3 Absolute Neuts (auto) 18.8 H Absolute Lymphs (auto) 1.22 Nucleated RBC % 0 Differential Comment Diff Path Review Reviewed PT 14.3 INR 1.2 APTT 39.8 H Sodium Potassium Chloride Carbon Dioxide Anion Gap BUN Creatinine Estim Creat Clear Calc Est GFR (MDRD) Af Amer Est GFR (MDRD) Non-Af BUN/Creatinine Ratio Glucose Lactic Acid Calcium Phosphorus Magnesium Total Bilirubin AST ALT Alkaline Phosphatase Total Protein Albumin Globulin Albumin/Globulin Ratio Urine Color Yellow Urine Clarity Sl. Cloudy Urine pH 5.0 Ur Specific [place] 1.015 Urine Protein 15 H Urine Glucose (UA) Normal Urine Ketones Negative Urine Occult Blood 10 H Urine Nitrite Negative Urine Bilirubin Negative Urine Urobilinogen Normal Ur Leukocyte Esterase 25 H Urine RBC 0-5 SEEN Urine WBC 0-5 SEEN Ur Squamous Epith Cells 0-5 SEEN Urine Bacteria 0 SEEN Hyaline Casts 0-5 SEEN Urine Mucus 0 SEEN MRSA (PCR) 02/23/21 02/23/21 02/23/21 13:04 13:04 13:04 WBC RBC Hgb Hct MCV MCH MCHC RDW Std Deviation RDW Coeff of Ranulfo Plt Count MPV Immature Gran % (Auto) Neut % (Auto) Lymph % (Auto) [place] % (Auto) Eos % (Auto) Baso % (Auto) Absolute Neuts (auto) Absolute Lymphs (auto) Nucleated RBC % Differential Comment Diff Path Review PT INR APTT Sodium 128 L Potassium 3.4 L Chloride 94 L Carbon Dioxide 29.0 Anion Gap 5 BUN 42 H Creatinine 1.69 H Estim Creat Clear Calc 41.07 Est GFR (MDRD) Af Amer 54 L Est GFR (MDRD) Non-Af 44 L BUN/Creatinine Ratio 24.9 H Glucose 109 H Lactic Acid 1.4 Calcium 8.5 Phosphorus 3.6 Magnesium 2.0 Total Bilirubin 0.60 AST 68 H ALT 48 Alkaline Phosphatase 106 Total Protein 6.9 Albumin 2.2 L Globulin 4.7 H Albumin/Globulin Ratio 0.5 L Urine Color Urine Clarity Urine pH Ur Specific [place] Urine Protein Urine Glucose (UA) Urine Ketones Urine Occult Blood Urine Nitrite Urine Bilirubin Urine Urobilinogen Ur Leukocyte Esterase Urine RBC Urine WBC Ur Squamous Epith Cells Urine Bacteria Hyaline Casts Urine Mucus MRSA (PCR) 02/24/21 02/24/21 02/24/21 06:34 06:34 06:50 WBC 16.2 H RBC 3.10 L Hgb 8.4 L Hct 26.0 L MCV 83.9 MCH 27.1 MCHC 32.3 RDW Std Deviation 44.0 H RDW Coeff of Ranulfo 14.5 Plt Count 275 MPV 8.8 Immature Gran % (Auto) 1.500 H Neut % (Auto) 78.4 H Lymph % (Auto) 6.8 L [place] % (Auto) 11.4 H Eos % (Auto) 1.7 Baso % (Auto) 0.2 Absolute Neuts (auto) 12.7 H Absolute Lymphs (auto) 1.10 Nucleated RBC % 0 Differential Comment Diff Path Review May foll PT INR APTT Sodium 133 L Potassium 3.8 Chloride 102 Carbon Dioxide 27.0 Anion Gap 4 L BUN 30 H Creatinine 1.37 H Estim Creat Clear Calc 53.54 Est GFR (MDRD) Af Amer 68 Est GFR (MDRD) Non-Af 57 L BUN/Creatinine Ratio 21.9 H Glucose 115 H Lactic Acid Calcium 7.8 L Phosphorus Magnesium Total Bilirubin 0.40 AST 41 H ALT 32 Alkaline Phosphatase 88 Total Protein 5.3 L Albumin 1.6 L Globulin 3.7 Albumin/Globulin Ratio 0.4 L Urine Color Urine Clarity Urine pH Ur Specific [place] Urine Protein Urine Glucose (UA) Urine Ketones Urine Occult Blood Urine Nitrite Urine Bilirubin Urine Urobilinogen Ur Leukocyte Esterase Urine RBC Urine WBC Ur Squamous Epith Cells Urine Bacteria Hyaline Casts Urine Mucus MRSA (PCR) Negative Microbiology 02/23/21 17:00 Sputum, Expectorated/Coughed Gram Stain - Final 02/23/21 17:00 Sputum, Expectorated/Coughed Respiratory Culture - Preliminary Appears to be normal respiratory marcos. Further studies to follow. 02/23/21 12:54 Urine, Clean Catch Urine Culture - Preliminary Culture exhibits no growth. 02/23/21 12:54 Urine, Clean Catch Legionella Antigen - Final 02/23/21 12:54 Urine, Clean Catch Streptococcus pneumoniae Antigen (M - Final 02/23/21 19:17 Mucosa - Nasopharyngeal Respiratory Panel (PCR) - Final 02/23/21 12:54 Mucosa - Nose SARS-CoV-2 Antigen (Rapid) - Final 02/23/21 12:54 Mucosa - Throat Group A Streptococcus Rapid Screen - Preliminary Clinical Impression(s) from Imaging Studies Chest X-Ray 02/23/21 13:25 IMPRESSION: New ill-defined groundglass opacities are seen adjacent to the mass in the right lung base may represent superimposed pneumonia. Electronically Signed: Jorge Rodrigues MD at 13:54 EDT Tel , Service support , Chest CT 02/24/21 08:07 IMPRESSION: 1. Interval development of an air-fluid level inside the large mass in the posterior right lower lobe. This is worrisome for abscess and is feasible for CT guided diagnostic and therapeutic drain catheter placement. 2. New moderate right posterior pleural fluid and new small left posterior pleural fluid. 3. New 1 cm thick right anterior pericardial fluid. 4. Airway predominant type of COPD is unchanged. Electronically Signed: Johnson Quintero MD at 9:13 EDT , Service support , Current Medications Acetaminophen (Acetaminophen 325 Mg Tablet) 650 mg PO Q6H PRN PRN PRN Reason: Pain Score 1-10/Temp > 100.7 F Last Admin: 02/25/21 02:09 Dose: 650 mg Documented by: Al Hydroxide/Mg Hydroxide (Mag Hydrox/Al Hydrox/Simeth 30 Ml Udc) 30 ml PO Q6H PRN PRN PRN Reason: Gastric Burning Albuterol Sulfate (Albuterol 2.5 Mg/3 Ml Vial.Neb.) 2.5 mg INHALATION Q2H PRN PRN PRN Reason: Dyspnea, wheezing Albuterol/Ipratropium (Ipratropium/Albuterol Sulfate 3 Ml Ampul.Neb) 3 ml INHALATION Q4HWA.RT [facility] Last Admin: 02/25/21 07:11 Dose: 3 ml Documented by: Carvedilol (Carvedilol 12.5 Mg Tablet) 12.5 mg PO BID [facility] Last Admin: 02/24/21 21:24 Dose: 12.5 mg Documented by: Enoxaparin Sodium (Enoxaparin 40 Mg/0.4 Ml Syringe) 40 mg SC DAILY [facility] Last Admin: 02/24/21 10:47 Dose: Not Given Documented by: Gabapentin (Gabapentin 300 Mg Capsule) 300 mg PO TIDCM [facility] Last Admin: 02/24/21 17:24 Dose: 300 mg Documented by: Guaifenesin (Guaifenesin 10 Ml Udc (200mg/10ml)) 20 ml PO Q4H PRN PRN PRN Reason: COUGH Hydralazine HCl (Hydralazine 20 Mg/Ml Vial) 10 mg IV Q4H PRN PRN PRN Reason: SBP > 160 Sodium Chloride () 1,000 mls @ 100 mls/hr IV .Q10H [facility] Last Admin: 02/25/21 03:20 Dose: 100 mls/hr Documented by: Piperacillin Sod/Tazobactam (Sod 3.375 gm/ Sodium Chloride) 50 mls @ 12.5 mls/hr IV Q8 [facility] Last Admin: 02/25/21 05:32 Dose: 12.5 mls/hr Documented by: Sodium Chloride () 250 mls @ 15 mls/hr IV .[id number] PRN PRN Reason: Saline Flush Last Infusion: 02/24/21 18:48 Dose: 0 mls/hr Documented by: Sodium Chloride () 250 mls @ 15 mls/hr IV .[id number] PRN PRN Reason: Additional IVPB Infusion Magnesium Hydroxide (Magnesium Hydroxide 30 Ml Udc) 30 ml PO DAILY PRN PRN PRN Reason: Constipation Last Admin: 02/24/21 18:51 Dose: 30 ml Documented by: Melatonin (Melatonin 3 Mg Tablet) 3 mg PO QHS PRN PRN PRN Reason: INSOMNIA Nicotine (Nicotine 14 Mg Patch) 14 mg TD DAILY [facility] Last Admin: 02/24/21 10:48 Dose: 14 mg Documented by: Nitroglycerin (Nitroglycerin (Inpatient Use) 0.4 Mg Tab.Subl) 0.4 mg SL Q5M PRN PRN Reason: CARDIAC/CHEST PAIN Ondansetron HCl (Ondansetron 4 Mg/2 Ml Vial) 4 mg IV Q8H PRN PRN PRN Reason: NAUSEA/VOMITING Last Admin: 02/24/21 20:38 Dose: 4 mg Documented by: Oxycodone HCl (Oxycodone 5 Mg Tablet) 20 mg PO Q4H PRN PRN PRN Reason: Pain Score 4-10 Last Admin: 02/25/21 04:04 Dose: 20 mg Documented by: Oxycodone HCl (Oxycodone Cr 20 Mg Tablet) 20 mg PO BID [facility] Last Admin: 02/24/21 21:24 Dose: 20 mg Documented by: Psyllium Hydrophilic Mucilloid (Psyllium 1 Packet) 1 packet PO DAILY PRN PRN PRN Reason: Constipation Last Admin: 02/24/21 13:48 Dose: 1 packet Documented by: Senna/Docusate Sodium (Senna/Docusate Sodium 1 Tablet) 2 tablet PO BID PRN PRN PRN Reason: Constipation Last Admin: 02/24/21 21:25 Dose: 2 tablet Documented by: Sodium Chloride (0.9% Saline Lock 10 Ml Syringe) 10 - 40 ml IV UD PRN PRN Reason: SALINE FLUSH Last Admin: 02/24/21 08:25 Dose: 20 ml Documented by: Throat Lozenges (Benzocaine/Menthol 1 Lozenge) 1 lozenge MUCOUS MEM Q2H PRN PRN PRN Reason: SORE THROAT Medical Necessity - Tobacco Use Smoking Status: Former smoker Tobacco Use: Cigarettes Assessment/Plan All Active Problems (Last Reviewed 02/19/21 @ 02:[address] Shad Swan MD) Sepsis (Acute) Pneumonia (Acute) Hyponatremia (Acute) THOR (acute kidney injury) (Acute) RECOMMENDATIONS: 1. Continue IV antimicrobial therapy. 2. Continue scheduled bronchodilator therapy. 3. Wean supplemental oxygen to maintain saturations at or above 90%. 4. Okay to discontinue supplemental IV fluids. 5. Consider transfer to [facility] for potential percutaneous drainage of suspected pulmonary abscess. IMPRESSIONS: 1. Possible postobstructive pneumonia versus pulmonary abscess The patient was recently admitted to the hospital with CT imaging performed at the end of January demonstrating a dense right lower lobe lung mass. The patient did grow out Streptococcus from his previous hospitalization was discharged home on antibiotics. The patient was apparently found to be febrile during his initial consultation with radiation oncology. A review of his CT simulation scan from [facility] revealed some findings in the right lower lobe concerning for possible abscess formation. Therefore, the patient was admitted and placed on antibiotics. Repeat CT completed this morning demonstrated findings concerning for any evolving pulmonary abscess in the right lower lobe with associated effusion. The patient may best be served by being transferred to [facility] for possible percutaneous drainage. 2. Recent diagnosis of non-small cell lung cancer Continue outpatient medical management per oncology. 3. Acute kidney injury Resolved. Likely prerenal in etiology. Creatinine has improved with volume expansion. Fluids can be discontinued from my perspective. Continue to monitor urine output. No current indication for renal replacement therapy. 4. History of tobacco dependency in remission/questionable COPD The patient is not currently established with a pulmonary provider, nor has he ever completed PFTs per his account. Continue inpatient bronchodilator therapy while admitted to the hospital. Resume Spiriva and as needed albuterol upon discharge. Recommend outpatient pulmonary follow-up within 2 weeks of discharge. Ongoing tobacco cessation recommended. 5. Hypertension/hyperlipidemia/malnutrition Complicates care, management, recovery and prognosis. Continue home medications as indicated. This note was generated with Yap dictation software. It may contain incorrect words, spelling, and punctuation that were not noted in checking the note before signing. Inpatient E&M: 28164 Subs Hosp L2
[2021-02-25] MEDS: Gabapentin 300 MG Capsule PO ×3 (08:03→17:32)
[2021-02-25 08:43] LABS: Absolute Lymphocyte Count 1.23 X10^3/uL (0.83-4.51); Absolute Neutrophil Count 12.6 X10^3/uL (2.0-7.7); Basophil# 0.05 X10^3/uL; Basophil% 0.3 % (0-1); Eosinophil# 0.52 X10^3/uL; Eosinophils% 3.2 % (0-5); Hematocrit 27.9 % (40-54); Hemoglobin 8.7 g/dL (13.0-16.5); Lymphocyte # 1.23 X10^3/ul (4.0); Lymphocyte % 7.5 % (19-41); Mean Corp Hgb Conc 31.2 g/dL (32-36); Mean Corpuscular Hgb 26.2 pg (27.0-32.0); Mean Platelet Vol. 9.3 fl (6.2-12.0); Monocyte# 1.66 X10^3/uL; Monocyte% 10.1 % (0-10); NRBC Flagged by Analyzer 0 % (0-5); Neutrophil # 12.59 X10^3/uL (2.7-7.7); Neutrophil % 76.9 % (47-70); POSITIVE DIFFERENTIAL YES; Platelet Count 322 K/mm3 (150-450); RBC Distribution Width CV 14.5 % (11.6-14.6); RBC Distribution Width SD 44.6 fl (35.1-43.9); Red Blood Count 3.32 M/mm3 (4.6-6.2); White Blood Count 16.4 K/mm3 (4.4-11.0)
[2021-02-25 08:44] LABS: Differential Indicated SCAN CRITERIA MET
[2021-02-25 09:01] LABS: Differential Comment SCANNED
[2021-02-25 09:03] LABS: Red Cell Morphology NORM C+C NORMAL (NORM C&C)
[2021-02-25 09:07] LABS: Anion Gap 4 (5-15); BUN 16 mg/dL (7-18); BUN/Creat Ratio 16.3 RATIO (10-20); Calcium,Total 7.8 mg/dL (8.5-10.1); Chloride 104 mmol/L (98-107); Creatinine, Serum 0.98 mg/dL (0.70-1.30); EST Glomerular Filtration Rate 83 mL/min (>60); Est Glom Filt Rate - Afr Amer 101 mL/min (>60); Estimated Creatinine Clearance 76.34 ml/min; Glucose 98 mg/dL (74-106); Potassium 3.8 mmol/L (3.5-5.1); Sodium Level 137 mmol/L (136-145)
[2021-02-25] MEDS: Carvedilol 12.5 MG Tablet PO ×2 (10:53→22:32)
[2021-02-25 13:09] LABS: Pathologist Review Reviewed
[2021-02-25 14:17] LABS: Pathologist Review Reviewed
--- NOTE | 2021-02-25 15:55 | NURSING ---
Call to transfer line and no bed available.
[2021-02-25] MEDS: Mag Hydrox/Al Hydrox/Simeth 30 ML UDC PO (17:32)
--- NOTE | 2021-02-25 17:54 | PN_ITS ---
Patient Problems: Active and Suspected Problems (Last Reviewed 02/19/21 @ 02:[address] Shad Swan MD) Sepsis (Acute) Pneumonia (Acute) Hyponatremia (Acute) THOR (acute kidney injury) (Acute) Subjective: Patient was seen and examined today, he still complains of significant right lower posterior chest pain, he states that the pain medications provide some relief but he still in quite a bit of pain. I agreed to increase the patient's time release oxycodone to 3 times a day. We still have not heard from [facility] to confirm a bed for the patient, patient is able to go to [facility] so I told the patient today that the other possibility was to try [facility] tomorrow if we have not heard from the clinic by tomorrow. Objective: General: Alert, Oriented x3, Cooperative, No apparent distress, Well developed HEENT: Atraumatic, PERRLA, EOMI, Normocephalic Oral: Moist Mucosa Neck: Supple, No JVD, Trachea Midline, Thyroid Normal Size and Texture Lungs: Clear to auscultation, Normal air movement, No rhonchi, No wheeze Cardiovascular: Regular rate, Regular Rhythm, Normal S1, Normal S2, No murmurs, PMI Normal, No rub noted, No Gallop Abdomen: Bowel Sounds Present, Soft, Non Tender, Non-Distended Extremities: No clubbing, No cyanosis, No edema, Capillary Refill Less than 3 Seconds Skin: No rashes, No breakdown Musculoskeletal: No Tenderness to Palpation of Joints or Extremities Neurological: Cranial nerves II-XII grossly intact, Neuro grossly intact, Sensory exam intact to light touch and pain Psych/Mental Status: Normal Affect, Appropriate, Alert and oriented to time, place, person, mood and affect - Physical Exam Vitals/I&O's: Vital Signs Temp Pulse Resp BP Pulse Ox 99.1 F 87 18 128/62 H 92 02/25/21 14:00 02/25/21 14:00 02/25/21 14:00 02/25/21 14:00 02/25/21 14:00 Oxygen Flow Rate (L/min) 2 Oxygen Delivery Method Room Air Weight: 66.5 kg Body Mass Index (BMI) 20.4 Intake and Output for Last 24 Hours 02/23/21 02/24/21 02/25/21 23:59 23:59 23:59 Intake Total 1260.5 / 1260.5 3586.00 / 3586.00 3540 / 3540 Balance 1260.5 / 1260.5 3586.00 / 3586.00 3540 / 3540 Microbiology Past 72 Hours 02/23/21 13:04 Blood Culture (Wb) - Left Forearm Blood Culture - Preliminary No growth in 48 hours. 02/23/21 13:25 Blood Culture (Wb) - Right Forearm Blood Culture - Preliminary No growth in 48 hours. 02/23/21 12:54 Mucosa - Throat Group A Streptococcus Rapid Screen - Preliminary 02/23/21 17:00 Sputum, Expectorated/Coughed Gram Stain - Final 02/23/21 17:00 Sputum, Expectorated/Coughed Respiratory Culture - Preliminary Appears to be normal respiratory marcos. Further studies to follow. 02/23/21 12:54 Urine, Clean Catch Urine Culture - Preliminary Culture exhibits no growth. 02/23/21 12:54 Urine, Clean Catch Legionella Antigen - Final 02/23/21 12:54 Urine, Clean Catch Streptococcus pneumoniae Antigen (M - Final 02/23/21 19:17 Mucosa - Nasopharyngeal Respiratory Panel (PCR) - Final 02/23/21 12:54 Mucosa - Nose SARS-CoV-2 Antigen (Rapid) - Final Laboratory Results 02/24/21 06:34: Diff Path Review Reviewed 02/25/21 08:23: WBC 16.4 H, RBC 3.32 L, Hgb 8.7 L, Hct 27.9 L, MCV 84.0, MCH 26.2 L, MCHC 31.2 L, RDW Std Deviation 44.6 H, RDW Coeff of Ranulfo 14.5, Plt Count 322, MPV 9.3, Immature Gran % (Auto) 2.000 H, Neut % (Auto) 76.9 H, Lymph % (Auto) 7.5 L, [place] % (Auto) 10.1 H, Eos % (Auto) 3.2, Baso % (Auto) 0.3, Absolute Neuts (auto) 12.6 H, Absolute Lymphs (auto) 1.23, Nucleated RBC % 0, Differential Comment SCANNED, Diff Path Review Reviewed, RBC Morphology NORM C+C 02/25/21 08:23: Sodium 137, Potassium 3.8, Chloride 104, Carbon Dioxide 29.0, Anion Gap 4 L, BUN 16, Creatinine 0.98, Estim Creat Clear Calc 76.34, Est GFR (MDRD) Af Amer 101, Est GFR (MDRD) Non-Af 83, BUN/Creatinine Ratio 16.3, Glucose 98, Calcium 7.8 L Current Medications Acetaminophen (Acetaminophen 325 Mg Tablet) 650 mg PO Q6H PRN PRN PRN Reason: Pain Score 1-10/Temp > 100.7 F Last Admin: 02/25/21 02:09 Dose: 650 mg Documented by: Albuterol Sulfate (Albuterol 2.5 Mg/3 Ml Vial.Neb.) 2.5 mg INHALATION Q2H PRN PRN PRN Reason: Dyspnea, wheezing Albuterol/Ipratropium (Ipratropium/Albuterol Sulfate 3 Ml Ampul.Neb) 3 ml INHALATION Q4HWA.RT [facility] Last Admin: 02/25/21 10:45 Dose: 3 ml Documented by: Carvedilol (Carvedilol 12.5 Mg Tablet) 12.5 mg PO BID [facility] Last Admin: 02/25/21 10:53 Dose: 12.5 mg Documented by: Enoxaparin Sodium (Enoxaparin 40 Mg/0.4 Ml Syringe) 40 mg SC DAILY [facility] Last Admin: 02/25/21 10:53 Dose: Not Given Documented by: Gabapentin (Gabapentin 300 Mg Capsule) 300 mg PO TIDCM [facility] Last Admin: 02/25/21 17:32 Dose: 300 mg Documented by: Guaifenesin (Guaifenesin 10 Ml Udc (200mg/10ml)) 20 ml PO Q4H PRN PRN PRN Reason: COUGH Piperacillin Sod/Tazobactam (Sod 3.375 gm/ Sodium Chloride) 50 mls @ 12.5 mls/hr IV Q8 [facility] Last Admin: 02/25/21 14:20 Dose: 12.5 mls/hr Documented by: Sodium Chloride () 250 mls @ 15 mls/hr IV .[id number] PRN PRN Reason: Saline Flush Last Infusion: 02/24/21 18:48 Dose: 0 mls/hr Documented by: Sodium Chloride () 250 mls @ 15 mls/hr IV .[id number] PRN PRN Reason: Additional IVPB Infusion Melatonin (Melatonin 3 Mg Tablet) 3 mg PO QHS PRN PRN PRN Reason: INSOMNIA Nicotine (Nicotine 14 Mg Patch) 14 mg TD DAILY [facility] Last Admin: 02/25/21 10:53 Dose: 14 mg Documented by: Ondansetron HCl (Ondansetron 4 Mg/2 Ml Vial) 4 mg IV Q8H PRN PRN PRN Reason: NAUSEA/VOMITING Last Admin: 02/24/21 20:38 Dose: 4 mg Documented by: Oxycodone HCl (Oxycodone 5 Mg Tablet) 20 mg PO Q4H PRN PRN PRN Reason: Pain Score 4-10 Last Admin: 02/25/21 17:37 Dose: 20 mg Documented by: Oxycodone HCl (Oxycodone Cr 20 Mg Tablet) 20 mg PO TID [facility] Last Admin: 02/25/21 12:18 Dose: 20 mg Documented by: Senna/Docusate Sodium (Senna/Docusate Sodium 1 Tablet) 2 tablet PO BID PRN PRN PRN Reason: Constipation Last Admin: 02/24/21 21:25 Dose: 2 tablet Documented by: Sodium Chloride (0.9% Saline Lock 10 Ml Syringe) 10 - 40 ml IV UD PRN PRN Reason: SALINE FLUSH Last Admin: 02/24/21 08:25 Dose: 20 ml Documented by: Medical Necessity - Tobacco Use Smoking Status: Former smoker Tobacco Use: Cigarettes Assessment/Plan All Active Problems (Last Reviewed 02/19/21 @ 02:[address] Shad Swan MD) Sepsis (Acute) Pneumonia (Acute) Hyponatremia (Acute) THOR (acute kidney injury) (Acute) #1 acute sepsis secondary to right lower lung abscess/pneumonia-continue Zosyn at this time, again patient will be transferred to [facility] in [place] [facility] for further care when a bed is available. 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 Inpatient E&M: 11304 [facility] L2
[2021-02-25] MEDS: MELATONIN 3 MG TABLET PO (22:31)
[2021-02-26] VITALS (10 sets, daily range): BP systolic 120–136; BP diastolic 59–71; PULSE 74–90; RESP 18–21; TEMP 36.9–37.3; O2SAT 92–98
[2021-02-26] MEDS: oxyCODONE 5 MG Tablet 20 MG PO ×4 (02:24→17:20)
[2021-02-26] MEDS: guaiFENesin 10 ML UDC (200MG/10ML) 20 ML PO ×2 (02:33→17:24)
[2021-02-26] MEDS: Ipratropium/Albuterol Sulfate 3 ML AMPUL.NEB INHALATION ×3 (06:53→15:34)
[2021-02-26 07:13] LABS: Absolute Neutrophil Count 15.7 X10^3/uL (2.0-7.7); Basophil# 0.07 X10^3/uL; Basophil% 0.4 % (0-1); Eosinophil# 0.58 X10^3/uL; Hematocrit 27.6 % (40-54); Hemoglobin 8.7 g/dL (13.0-16.5); Lymphocyte % 5.7 % (19-41); Mean Corp Hgb Conc 31.5 g/dL (32-36); Mean Corpuscular Hgb 26.4 pg (27.0-32.0); Mean Corpuscular Volume 83.6 fL (80-94); Mean Platelet Vol. 8.9 fl (6.2-12.0); Monocyte# 1.49 X10^3/uL; Monocyte% 7.8 % (0-10); NRBC Flagged by Analyzer 0 % (0-5); Neutrophil # 15.65 X10^3/uL (2.7-7.7); Neutrophil % 81.7 % (47-70); Platelet Count 345 K/mm3 (150-450); RBC Distribution Width CV 14.7 % (11.6-14.6); RBC Distribution Width SD 45.2 fl (35.1-43.9); White Blood Count 19.2 K/mm3 (4.4-11.0)
[2021-02-26] MEDS: Carvedilol 12.5 MG Tablet PO (08:14)
[2021-02-26] MEDS: Gabapentin 300 MG Capsule PO ×3 (08:15→17:19)
[2021-02-26] MEDS: Acetaminophen 325 MG Tablet 650 MG PO (08:20)
--- NOTE | 2021-02-26 09:54 | NURSING ---
aware per [facility] transfer center no bed available at this time.
--- NOTE | 2021-02-26 13:16 | NURSING ---
REPORT CALLED TO MARIANNE MCCORD [place] [id number]
[2021-02-26] MEDS: 0.9% Saline Lock 10 ML Syringe IV (15:55)
--- NOTE | 2021-02-26 17:56 | PCM.DC.SUM ---
Discharge Date and Diagnosis - Problem List Patient Problems: Active and Suspected Problems (Last Reviewed 02/19/21 @ 02:[address] Shad Swan MD) Sepsis (Acute) Pneumonia (Acute) Hyponatremia (Acute) THOR (acute kidney injury) (Acute) Date of Admission: 02/23/21 Date of Discharge: 02/26/21 - Primary Discharge Diagnosis Acute Problems: Active Problems (Last Reviewed 02/19/21 @ 02:[address] 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 Shad Swan MD) Cardiac resynchronization therapy defibrillator (PLANT PULLER-D) in place (Chronic 09/10/14) RA extraction d/t malfunction and dual chamber ICD upgraded to PLANT PULLER-D 06/16/2008, Left chest PLANT PULLER-D extracted due to malfunctioning leads (pocket swabs grew propionibacterium) 01/2014; Re implant of PLANT PULLER-D to right chest 09/10/14 [facility] Non-ischemic cardiomyopathy (Chronic) LBBB (left bundle branch block) (Chronic) H/O sustained ventricular tachycardia (Chronic) Per EPS 04/2003 Chronic systolic (congestive) heart failure (Chronic) Essential hypertension (Chronic) Nicotine dependence (Chronic) Right lower lobe lung mass (Chronic) Hospital Course and Treatment Operations: None Procedures: None Summary of Care Provided: The patient is a 60 year old M seen in the emergency room at [facility] after being evaluated for radiation therapy and found to have an elevated temperature. Patient recently been hospitalized for pneumonia and was on Levaquin. Work-up in the emergency room revealed a lactic acid of 1.4, white blood cell count was elevated at 23.2, Covid rapid antigen was negative. Patient's chest x-ray showed ill-defined groundglass opacities adjacent to the patient's right lung mass. Patient was admitted to [facility], he was seen in consultation by pulmonary medicine who felt that the patient possibly had a right lung abscess. This examiner talked by phone with infectious diseases who recommended transferring the patient to a tertiary facility for further evaluation by a chest surgeon. We put in a request for the patient to go to [facility] but unfortunately after 2 days there was no beds available at the [facility]. Patient was then able to be transferred to [facility] for further care. On 02/26/2021, patient was seen and examined General: Alert, Oriented x3, Cooperative, No apparent distress, Well developed HEENT: Atraumatic, PERRLA, EOMI, Normocephalic Oral: Moist Mucosa Neck: Supple, No JVD, Trachea Midline, Thyroid Normal Size and Texture Lungs: Clear to auscultation, Normal air movement, No rhonchi, No wheeze Cardiovascular: Regular rate, Regular Rhythm, Normal S1, Normal S2, No murmurs, PMI Normal, No rub noted, No Gallop Abdomen: Bowel Sounds Present, Soft, Non Tender, Non-Distended Extremities: No clubbing, No cyanosis, No edema, Capillary Refill Less than 3 Seconds Skin: No rashes, No breakdown Musculoskeletal: No Tenderness to Palpation of Joints or Extremities Neurological: Cranial nerves II-XII grossly intact, Neuro grossly intact, Sensory exam intact to light touch and pain Psych/Mental Status: Normal Affect, Appropriate, Alert and oriented to time, place, person, mood and affect Patient was transferred to [facility] for further care on 02/26/2021. He was in stable condition at the time of transfer. Patient Problems: Active and Suspected Problems (Last Reviewed 02/19/21 @ 02:[address] Shad Swan MD) Sepsis (Acute) Pneumonia (Acute) Hyponatremia (Acute) THOR (acute kidney injury) (Acute) - Physical Exam Vitals/I&O's: Vital Signs Temp Pulse Resp BP Pulse Ox 98.5 F 81 21 H 120/60 95 02/26/21 14:30 02/26/21 15:35 02/26/21 15:35 02/26/21 14:30 02/26/21 14:30 Oxygen Flow Rate (L/min) 3 Oxygen Delivery Method Nasal Cannula Weight: 66.4 kg Body Mass Index (BMI) 20.4 Intake and Output for Last 24 Hours 02/24/21 02/25/21 02/26/21 23:59 23:59 23:59 Intake Total 3586.00 / 3586.00 4210 / 4210 1843.5 / 1843.5 Balance 3586.00 / 3586.00 4210 / 4210 1843.5 / 1843.5 Microbiology Past 72 Hours 02/23/21 17:00 Sputum, Expectorated/Coughed Gram Stain - Final 02/23/21 17:00 Sputum, Expectorated/Coughed Respiratory Culture - Final 02/23/21 12:54 Urine, Clean Catch Urine Culture - Final Culture exhibits no growth. 02/23/21 12:54 Mucosa - Throat Group A Streptococcus Rapid Screen - Final 02/23/21 13:04 Blood Culture (Wb) - Left Forearm Blood Culture - Preliminary No growth in 48 hours. 02/23/21 13:25 Blood Culture (Wb) - Right Forearm Blood Culture - Preliminary No growth in 48 hours. 02/23/21 12:54 Urine, Clean Catch Legionella Antigen - Final 02/23/21 12:54 Urine, Clean Catch Streptococcus pneumoniae Antigen (M - Final 02/23/21 19:17 Mucosa - Nasopharyngeal Respiratory Panel (PCR) - Final Laboratory Results 02/26/21 07:01: WBC 19.2 H, RBC 3.30 L, Hgb 8.7 L, Hct 27.6 L, MCV 83.6, MCH 26.4 L, MCHC 31.5 L, RDW Std Deviation 45.2 H, RDW Coeff of Ranulfo 14.7 H, Plt Count 345, MPV 8.9, Immature Gran % (Auto) 1.400 H, Neut % (Auto) 81.7 H, Lymph % (Auto) 5.7 L, [place] % (Auto) 7.8, Eos % (Auto) 3.0, Baso % (Auto) 0.4, Absolute Neuts (auto) 15.7 H, Absolute Lymphs (auto) 1.10, Nucleated RBC % 0 Current Medications Acetaminophen (Acetaminophen 325 Mg Tablet) 650 mg PO Q6H PRN PRN PRN Reason: Pain Score 1-10/Temp > 100.7 F Last Admin: 02/26/21 08:20 Dose: 650 mg Documented by: Albuterol Sulfate (Albuterol 2.5 Mg/3 Ml Vial.Neb.) 2.5 mg INHALATION Q2H PRN PRN PRN Reason: Dyspnea, wheezing Albuterol/Ipratropium (Ipratropium/Albuterol Sulfate 3 Ml Ampul.Neb) 3 ml INHALATION Q4HWA.RT [facility] Last Admin: 02/26/21 15:34 Dose: 3 ml Documented by: Carvedilol (Carvedilol 12.5 Mg Tablet) 12.5 mg PO BID [facility] Last Admin: 02/26/21 08:14 Dose: 12.5 mg Documented by: Enoxaparin Sodium (Enoxaparin 40 Mg/0.4 Ml Syringe) 40 mg SC DAILY [facility] Last Admin: 02/26/21 10:13 Dose: Not Given Documented by: Gabapentin (Gabapentin 300 Mg Capsule) 300 mg PO TIDCM [facility] Last Admin: 02/26/21 17:19 Dose: 300 mg Documented by: Guaifenesin (Guaifenesin 10 Ml Udc (200mg/10ml)) 20 ml PO Q4H PRN PRN PRN Reason: COUGH Last Admin: 02/26/21 17:24 Dose: 20 ml Documented by: Piperacillin Sod/Tazobactam (Sod 3.375 gm/ Sodium Chloride) 50 mls @ 12.5 mls/hr IV Q8 [facility] Last Admin: 02/26/21 15:56 Dose: 12.5 mls/hr Documented by: Sodium Chloride () 250 mls @ 15 mls/hr IV .[id number] PRN PRN Reason: Saline Flush Last Admin: 02/26/21 08:23 Dose: 15 mls/hr Documented by: Sodium Chloride () 250 mls @ 15 mls/hr IV .[id number] PRN PRN Reason: Additional IVPB Infusion Melatonin (Melatonin 3 Mg Tablet) 3 mg PO QHS PRN PRN PRN Reason: INSOMNIA Last Admin: 02/25/21 22:31 Dose: 3 mg Documented by: Nicotine (Nicotine 14 Mg Patch) 14 mg TD DAILY [facility] Last Admin: 02/26/21 08:14 Dose: 14 mg Documented by: Ondansetron HCl (Ondansetron 4 Mg/2 Ml Vial) 4 mg IV Q8H PRN PRN PRN Reason: NAUSEA/VOMITING Last Admin: 02/24/21 20:38 Dose: 4 mg Documented by: Oxycodone HCl (Oxycodone 5 Mg Tablet) 20 mg PO Q4H PRN PRN PRN Reason: Pain Score 4-10 Last Admin: 02/26/21 17:20 Dose: 20 mg Documented by: Oxycodone HCl (Oxycodone Cr 20 Mg Tablet) 20 mg PO TID [facility] Last Admin: 02/26/21 14:14 Dose: 20 mg Documented by: Senna/Docusate Sodium (Senna/Docusate Sodium 1 Tablet) 2 tablet PO BID PRN PRN PRN Reason: Constipation Last Admin: 02/24/21 21:25 Dose: 2 tablet Documented by: Sodium Chloride (0.9% Saline Lock 10 Ml Syringe) 10 - 40 ml IV UD PRN PRN Reason: SALINE FLUSH Last Admin: 02/26/21 15:55 Dose: 10 ml Documented by: Home Medications: Medications to take at Discharge Carvedilol [Coreg (Beta Myriam)] 12.5 mg PO BID 02/06/14 Gabapentin [Neurontin] 300 mg PO TIDCM 09/11/14 lisinopril 5 mg tablet 5 mg PO DAILY tab 12/15/20 Albuterol IH (ProAir) [Proair Hfa] 1 - 2 puff INHALATION Q4H PRN PRN 02/15/21 Spiriva Respimat 2 puff INHALATION DAILY 02/15/21 Nicotine [Nicoderm] 14 mg TD DAILY #30 patch 02/21/21 Oxycodone CR [Oxycontin] 20 mg PO BID 15 Days #30 tab 02/21/21 Oxycodone HCl 20 mg PO Q4H PRN PRN 7 Days #40 tablet 02/21/21 levoFLOXacin tablet [Levaquin tablet] 750 mg PO DAILY #7 tab 02/21/21 Primary Care Physician: Jorje Frances NP, COMPLEX CASE MANAGER-C [Primary Care Provider] - Disposition: Acute care Hospital Minutes spent on discharge:: 32 Patient Condition:: Stable Medical Necessity - Tobacco Use Smoking Status: Former smoker Tobacco Use: Cigarettes Meaningful Use Info Meaningful Use Diagnoses (Choose all that apply): None applicable Inpatient E&M: 10247 [facility] Hosp
--- NOTE | 2021-02-26 18:21 | NURSING ---
O2 DECREASED TO 2L NC
--- NOTE | 2021-02-26 18:56 | NURSING ---
called transport physicians ambulance regarding machine pecan picker time at 18:30. aware machine pecan picker time will now be 8pm or after. charge nurse made aware.
== END 2021-02-26 20:25 | disposition other institution (70) | DRG 871 ==
LOC: ED 12:46 → MS3 15:36
PROVIDERS: Internal Medicine Critical Care Medicine; Admitting Provider Family Medicine; Emergency Provider Emergency Medicine; PCP Nurse Practitioner Family; Visit Provider Internal Medicine
DX: A41.9 Sepsis, unspecified organism (principal); J85.1 Abscess of lung with pneumonia; E43 Unspecified severe protein-calorie malnutrition; C34.31 Malignant neoplasm of lower lobe, right bronchus or lung; E87.1 Hypo-osmolality and hyponatremia; N17.9 Acute kidney failure, unspecified; I42.8 Other cardiomyopathies; I50.22 Chronic systolic (congestive) heart failure; J44.0 Chronic obstructive pulmonary disease with (acute) lower respiratory infection; E87.6 Hypokalemia; I11.0 Hypertensive heart disease with heart failure; Z87.891 Personal history of nicotine dependence; Z95.810 Presence of automatic (implantable) cardiac defibrillator; E78.5 Hyperlipidemia, unspecified; Z68.20 Body mass index [BMI] 20.0-20.9, adult; G89.3 Neoplasm related pain (acute) (chronic)
CPT/HCPCS: 36415; 71045; 71250; 80048; 80053; 81001; 83605; 83735; 84100; 85025; 85610; 85730; 87040; 87070; 87086; 87205; 87426; 87449; 87633; 87641; 87880; 93005; 94640; 97802; 99251; 99285; J7030; J7050; A4216; G0463; J2405

== ENCOUNTER 2021-04-22 17:49 | Emergency (ER) | payer MEDICARE, MEDICAID, SELFPAY ==
[2021-02-23 16:43] VITALS: BMI 20.4
[2021-04-22 17:51] VITALS: BP 131/93; PULSE 102; RESP 16; TEMP 36; O2SAT 97; BMI 19.2
[2021-04-22 18:26] LABS: Absolute Lymphocyte Count 0.89 X10^3/uL (0.83-4.51); Absolute Neutrophil Count 4.8 X10^3/uL (2.0-7.7); Basophil# 0.09 X10^3/uL; Basophil% 1.3 % (0-1); Eosinophils% 5.6 % (0-5); Hemoglobin 11.3 g/dL (13.0-16.5); Lymphocyte # 0.89 X10^3/ul (0.83-4.51); Lymphocyte % 12.4 % (19-41); Mean Corp Hgb Conc 31.4 g/dL (32-36); Mean Corpuscular Hgb 25.2 pg (27.0-32.0); Mean Corpuscular Volume 80.2 fL (80-94); Mean Platelet Vol. 8.7 fl (6.2-12.0); Monocyte# 0.94 X10^3/uL; Monocyte% 13.1 % (0-10); NRBC Flagged by Analyzer 0 % (0-5); Neutrophil # 4.78 X10^3/uL (2.7-7.7); Neutrophil % 66.6 % (47-70); Platelet Count 351 K/mm3 (150-450); RBC Distribution Width CV 14.5 % (11.6-14.6); RBC Distribution Width SD 41.9 fl (35.1-43.9); Red Blood Count 4.49 M/mm3 (4.6-6.2); White Blood Count 7.2 K/mm3 (4.4-11.0)
--- NOTE | 2021-04-22 18:27 | RAD_ITS ---
STUDY: X-RAY - ACUTE ABDOMINAL SERIES REASON FOR EXAM: Male, 60 years old. Pain, distention history of stage III lung cancer TECHNIQUE: Single view of the chest. Supine, and upright view(s) of the abdomen were obtained. COMPARISON: None. FINDINGS: There is a nodule in the right lower lobe which appears slightly spiculated which may be consistent with neoplasm.. Pacer noted on the right with electrodes in satisfactory position Normal size heart. Normal mediastinum and claudia. Normal visualized pulmonary arteries. Normal visualized aortic arch and descending thoracic aorta. Predominantly colonic ileus with diffuse fecal retention in the colon.. The soft tissue structures of the abdomen and pelvis are unremarkable. Lumbar spine demonstrates scoliosis and degenerative change. RAD/Acute Abdomen Inc Chest IMPRESSION: Nonspecific predominately colonic ileus. No evidence for small bowel obstruction Right lower lobe nodule consistent with known neoplasm Electronically Signed: Memo Walls MD at 19:04 EDT , Service support ,
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
[2021-04-22] MEDS: Ondansetron 4 MG/2 ML Vial IV (18:31)
[2021-04-22] MEDS: 0.9% Normal Saline 1,000 ML 1000 ML IV (18:31)
[2021-04-22] MEDS: HYDROmorphone 1 MG/ML Syringe IV (18:38)
[2021-04-22 18:39] LABS: ALB/GLOB Ratio 0.5 RATIO (0.9-2.4); AST(SGOT) 15 U/L (15-37); Alanine Aminotransfer ALT/SGPT 18 U/L (16-61); Albumin, Serum 2.9 g/dL (3.2-5.0); Alkaline Phosphatase 108 U/L (45-117); Anion Gap 10 (5-15); BUN 13 mg/dL (7-18); BUN/Creat Ratio 13.3 RATIO (10-20); Calcium,Total 9.7 mg/dL (8.5-10.1); Chloride 96 mmol/L (98-107); Creatinine, Serum 0.98 mg/dL (0.70-1.30); EST Glomerular Filtration Rate 84 mL/min (>60); Est Glom Filt Rate - Afr Amer 101 mL/min (>60); Estimated Creatinine Clearance 67.69 ml/min; Globulin 5.6 g/dL (2.2-4.2); Glucose 119 mg/dL (74-106); Potassium 3.2 mmol/L (3.5-5.1); Protein, Total 8.5 g/dL (6.4-8.2); Sodium Level 135 mmol/L (136-145)
== END 2021-04-22 20:35 | disposition home or self-care (01) ==
PROVIDERS: Emergency Provider Emergency Medicine; PCP Nurse Practitioner Family
DX: E86.0 Dehydration (principal); R11.2 Nausea with vomiting, unspecified; K59.00 Constipation, unspecified; C34.31 Malignant neoplasm of lower lobe, right bronchus or lung; I11.0 Hypertensive heart disease with heart failure; I50.22 Chronic systolic (congestive) heart failure; J44.9 Chronic obstructive pulmonary disease, unspecified; Z79.51 Long term (current) use of inhaled steroids; Z79.899 Other long term (current) drug therapy; Z87.891 Personal history of nicotine dependence
CPT/HCPCS: 74022; 80053; 85025; 96361; 96374; 96375; 99284; J7030; A4216; J2405

== ENCOUNTER → 2021-04-26 15:28 | Outpatient (CLI) | payer MEDICARE, MEDICAID, SELFPAY ==
[2021-02-23 16:43] VITALS: BMI 20.4
[2021-04-22 17:51] VITALS: BMI 19.2
--- NOTE | 2021-04-26 15:30 | PET_ITS ---
EXAMINATION: FDG PET/CT INDICATIONS: A 60-year-old male with history of carcinoma of the lung presenting for restaging examination. COMPARISON EXAMINATION: FDG PET study dated 12/21/20, CT of the chest report dated 02/24/21 INDEX LESION SIZE SUV INTERPRETATION PERSISTENT: right lower posteromedial lung-right lower lobe 43.4-mm (frame 156) comp. to 61.1-mm (12/21/20) 4.0 comp. to 33.5 (12/21/20) Fulfills quantitative criteria for viable neoplasm, interim metabolic improvement-quantitative partial metabolic response NEW: left lower anterolateral lung-lingula, nodular 24.6-mm (frame 162) 4.4 May necessitate histopathologic investigation NEW: bilateral hemithorax pulmonary parenchyma, linear hypermetabolic foci 3.8 (max) Lower likelihood of viable neoplasm PREVIOUS: abdominal retroperitoneum Demonstrates metabolic resolution on the current examination TECHNIQUE: Following the intravenous administration of 14.19 mCi of F-18 deoxyglucose via the left antecubital fossa, multiplanar image acquisitions of the neck, chest, abdomen and pelvis to level of mid thigh, obtained at one hour post radiopharmaceutical administration contemporaneously interpreted with the current CT of the neck, chest, abdomen and pelvis to level of mid thigh, dated 04/26/21 via coregistration and previous FDG PET study dated 12/21/20, CT of the chest report dated 02/24/21 reveal: SERUM GLUCOSE LEVEL: 90 mg/dl. HEIGHT: 69 inches. WEIGHT: 130 lbs. FINDINGS: 1. Persistent increased FDG uptake is noted in the right lower posteromedial lung-right lower lobe, circumferential in presentation with central photopenia. The calculated maximal standard uptake value is 4.0, compared to 33.5 defined on the FDG PET study dated 12/21/20. The maximal axial diameter of the corresponding metabolic, morphologic abnormality on the current examination is 43.4-mm (transverse). 2. A nodular focus of enhanced glucose metabolism is newly apparent in the left lower anterolateral lung-lingula generating a calculated maximal standard uptake value of 4.4. The maximal axial diameter of the corresponding ground glass density on review of CT of the chest dated 04/26/21 is 24.6-mm (AP). 3. Multiple additional foci of increased radiopharmaceutical concentration are manifest in the bilateral lung basilio, the majority of which are linear in presentation, generating a calculated maximal standard uptake value of 3.8. The corresponding densities on review of CT of the chest dated 12/21/20 in the axial plane are consistent with ground glass changes. 4. Normal physiologic distribution of the radiopharmaceutical is apparent in the hepatic (2.1/2.2) and splenic parenchyma, both renal units, bladder and visualized intestinal tract. The visualized portion of the cerebral cortex, as well as cerebellar hemispheres demonstrate symmetric and preserved glucose metabolism. Diffuse radiopharmaceutical concentration is noted in all four quadrants of the abdomen and pelvis. The previously identified abdominal retroperitoneal hypermetabolic focus noted on the FDG PET study dated 12/21/20 is not apparent on the current examination. Mild increased tracer uptake persists in the mediastinal structures generating a current calculated maximal standard uptake value of 2.3, compared to 3.6 defined on the examination dated 12/21/20. Quantitative criteria for neoplasm are not fulfilled. Excluding the above-described parenchymal changes, previously defined morphologic-anatomic changes noted on review of CT of the neck, chest, abdomen and pelvis on the FDG PET-CT report dated 12/21/20, are essentially unchanged on the current examination. PET/PET/CT Tumor Base -Thigh Subs IMPRESSION: 1. ABNORMAL EXAMINATION INDICATIVE OF MALIGNANT VIABLE NEOPLASM. 2. Increased glucose concentration redefined in the right lower posteromedial lung-right lower lobe fulfills quantitative criteria for viable neoplasia. (Coral et al, Journal of Nuclear Medicine 43:302 P, 2002). 3. Enhanced tracer uptake, nodular in presentation, newly apparent in the left lower anterolateral lung-lingula, may necessitate histopathologic investigation secondary to the quantitative degree of uptake and qualitative nodular expression. (Jacob et al, Annals of Internal Medicine, 138:724, 2003). 4. Additional foci of increased glucose concentration observed in the bilateral hemithorax pulmonary parenchyma, linear in expression corresponding to ground glass changes is consistent with a lower likelihood of viable neoplasm. 5. There is resolution of the prior defined mid abdominal retroperitoneal hypermetabolic focus. 6. Overall, compared to the prior FDG PET study dated 12/21/20, there is continued demonstration of viable neoplasm within the context of the right lower posteromedial lung-right lower lobe manifesting a significant interval quantitative partial metabolic response. There is potential viable neoplasm newly apparent in the left lower anterolateral lung-lingula which may necessitate histopathologic investigation. Resolution of the prior defined abdominal retroperitoneal hypermetabolic focus is noted as defined above. Electronic Signature Anders Solares D.O. Accurate Quantification of SUVs for this report are calculated using the exclusive [employer], ([place]. Patent No. [id number]). Standardization and correction of the FDG SUV metric allow for vendor non-specific objective quantitative comparison and otherwise unobtainable optimization of the sensitivity and specificity of the examination. Electronically Signed: Anders Solares DO at 15:02 EDT Tel , Service support ,
== END ==
PROVIDERS: PCP Nurse Practitioner Family; Referring Provider Internal Medicine Hematology & Oncology; Visit Provider Internal Medicine Hematology & Oncology
DX: C34.31 Malignant neoplasm of lower lobe, right bronchus or lung (principal); C77.1 Secondary and unspecified malignant neoplasm of intrathoracic lymph nodes
CPT/HCPCS: 78815; A9552

== ENCOUNTER → 2021-07-21 10:40 | Outpatient (CLI) | payer MEDICARE, SELFPAY ==
--- NOTE | 2021-07-21 10:42 | VDLE_ITS ---
Reason For Study: PAIN RIGHT LEFT GSV is normal. GSV is normal. CFV is compressible, spontaneous, phasic, CFV is compressible, spontaneous, phasic, competent and demonstrates normal competent, and demonstrates normal augmentation. augmentation. FV is compressible, spontaneous, phasic, FV is compressible, spontaneous, phasic, competent and demonstrates normal competent and demonstrates normal augmentation. augmentation. POP V is compressible, spontaneous, phasic, POP V is compressible, spontaneous, phasic, competent and demonstrates normal competent and demonstrates normal augmentation. augmentation. T/P Trunk is compressible. T/P Trunk is compressible. PTV is compressible. PTV is compressible. RT PerV is compressible. LT PerV is compressible. Procedure Exam performed in department. A preliminary report was called and/or faxed to DR KNIGHT. VL/Venous Duplex US - Stone Extrem Interpretation Summary No evidence for acute deep venous thrombosis bilateral lower extremities with p atent and compressible bilateral great saphenous veins. Ordering Physician: Sandeep Knight Referring Physician: ANITA RODGERS Performed By: Candy Meehan, RUSSELLCS, RVT
== END ==
PROVIDERS: PCP Nurse Practitioner Family; Referring Provider Internal Medicine Hematology & Oncology; Visit Provider Internal Medicine Hematology & Oncology
DX: M79.89 Other specified soft tissue disorders (principal); M79.661 Pain in right lower leg; M79.662 Pain in left lower leg; C34.31 Malignant neoplasm of lower lobe, right bronchus or lung
CPT/HCPCS: 93970

== ENCOUNTER 2021-12-31 21:00 | Emergency (ER) | payer MEDICARE, SELFPAY ==
[2021-12-31 21:01] VITALS: BP 161/94; PULSE 72; RESP 18; TEMP 36.5; O2SAT 97; BMI 21.4
[2021-12-31] MEDS: 0.9% Normal Saline 1,000 ML 999 ML IV (21:46)
[2021-12-31 22:02] LABS: Absolute Neutrophil Count 3.1 X10^3/uL (2.0-7.7); Basophil# 0.01 X10^3/uL; Basophil% 0.2 % (0-1); Eosinophil# 0.04 X10^3/uL; Eosinophils% 0.9 % (0-5); Hematocrit 44.8 % (40-54); Hemoglobin 14.9 g/dL (13.0-16.5); Lymphocyte % 15.1 % (19-41); Mean Corp Hgb Conc 33.3 g/dL (32-36); Mean Corpuscular Hgb 29.7 pg (27.0-32.0); Mean Corpuscular Volume 89.4 fL (80-94); Mean Platelet Vol. 9.4 fl (6.2-12.0); Monocyte# 0.72 X10^3/uL; Monocyte% 15.6 % (0-10); NRBC Flagged by Analyzer 0 % (0-5); Neutrophil # 3.13 X10^3/uL (2.7-7.7); Neutrophil % 67.6 % (47-70); Platelet Count 199 K/mm3 (150-450); RBC Distribution Width CV 12.7 % (11.6-14.6); Red Blood Count 5.01 M/mm3 (4.6-6.2); White Blood Count 4.6 K/mm3 (4.4-11.0)
[2021-12-31 22:18] LABS: Bacteria 0 SEEN /hpf (None Seen); Red Blood Cells-Urine 0 SEEN /hpf (0-5); White Blood Cells 0 SEEN /hpf (0-5)
[2021-12-31 22:20] LABS: Anion Gap 6 (5-15); BUN 13 mg/dL (7-18); BUN/Creat Ratio 15.3 RATIO (10-20); Calcium,Total 9.1 mg/dL (8.5-10.1); Chloride 101 mmol/L (98-107); Creatinine, Serum 0.85 mg/dL (0.70-1.30); EST Glomerular Filtration Rate 98 mL/min (>60); Est Glom Filt Rate - Afr Amer 118 mL/min (>60); Estimated Creatinine Clearance 86.21 ml/min; Glucose 101 mg/dL (74-106); Potassium 3.8 mmol/L (3.5-5.1); Sodium Level 136 mmol/L (136-145)
[2021-12-31 22:29] VITALS: BP 144/59
[2021-12-31 22:37] LABS: Color, Urine Yellow (Yellow); Glucose, Dipstick 1000 mg/dl (Normal); Ketone-Dipstick Negative (Negative); Leukocyte Esterase-Dipstick Negative /ul (Negative); Nitrite-Dipstick Negative (Negative); Occult Blood-Urine Negative /ul (Negative); Protein-Dipstick 15 mg/dl (Negative); Urine Bilirubin Dipstick Negative (Negative); Urine Clarity Sl. Cloudy (Clear); Urine Urobilinogen Normal (Normal)
[2021-12-31 22:50] LABS: Mucous, Urine 2+ /hpf (<or=2+); Squamous Epithelial Cells - UA 0-5 SEEN /hpf (0-5)
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
[2021-12-31 23:39] VITALS: BP 139/85; PULSE 76; RESP 18
== END 2021-12-31 23:39 | disposition home or self-care (01) ==
PROVIDERS: Emergency Provider Emergency Medicine; PCP Nurse Practitioner Family; Visit Provider Emergency Medicine
DX: E86.0 Dehydration (principal); C34.90 Malignant neoplasm of unspecified part of unspecified bronchus or lung; B37.0 Candidal stomatitis; F12.10 Cannabis abuse, uncomplicated; Z87.891 Personal history of nicotine dependence
CPT/HCPCS: 80048; 81001; 85025; 99285; J7030

== ENCOUNTER 2022-01-06 11:48 | Outpatient (CLI) | payer MEDICARE, MEDICAID, SELFPAY ==
[2022-01-06 12:18] LABS: Prothrombin Time (Protime)PT. 12.3 SECONDS (11.7-14.9)
== END 2022-01-06 23:59 | disposition home or self-care (01) ==
PROVIDERS: PCP Nurse Practitioner Family; Visit Provider Internal Medicine Hematology & Oncology
DX: R91.8 Other nonspecific abnormal finding of lung field (principal)
CPT/HCPCS: 85610

== ENCOUNTER 2022-01-11 13:23 | Outpatient (CLI) | payer MEDICARE, MEDICAID, SELFPAY ==
--- NOTE | 2022-01-11 13:30 | PET_ITS ---
EXAMINATION: FDG PET/CT INDICATIONS: A 61-year-old male with history of carcinoma of the lung presenting for restaging examination. COMPARISON EXAMINATION: FDG PET study dated 04/26/21 INDEX LESION SIZE SUV INTERPRETATION PERSISTENT: right lower posteromedial lung-right lower lobe 4.7-cm (frame 165) comp. to 4.3-cm (04/26/21) 2.5 comp. to 4.0 (04/26/21) Fulfills quantitative criteria for viable neoplasm, interim metabolic improvement-continued quantitative metabolic response NEW: left lower lung-left lower lobe 10.6-mm (frame 185) 4.2 Fulfills quantitative criteria for viable neoplasm NEW: additional bilateral hemithorax pulmonary parenchymal hypermetabolic foci 15.3-mm (largest) (frame 171) 2.2 (max) Fulfills borderline quantitative criteria for viable neoplasm NEW: mediastinum, bilateral thoracic perihilum 14.8-mm (largest) (frame 205) 3.2 (max) Fulfills borderline quantitative criteria for viable neoplasm PREVIOUS: all additional prior defined hypermetabolic foci Demonstrate metabolic resolution on the current examination TECHNIQUE: Following the intravenous administration of 13.27 mCi of F-18 deoxyglucose via the right antecubital fossa, multiplanar image acquisitions of the neck, chest, abdomen and pelvis to level of mid thigh, obtained at one hour post radiopharmaceutical administration contemporaneously interpreted with the current CT of the neck, chest, abdomen and pelvis to level of mid thigh, dated 01/11/22 via coregistration and FDG PET study dated 04/26/21 reveal: SERUM GLUCOSE LEVEL: 116 mg/dl. HEIGHT: 69 inches. WEIGHT: 152 lbs. FINDINGS: 1. Focal increased glucose metabolism is redefined in the right lower posteromedial lung-right lower lobe generating a current calculated maximal standard uptake value of 2.5, compared to 4.0 defined on the examination dated 04/26/21. The current maximal axial diameter of the metabolic, morphologic abnormality on the present examination is 4.7-cm, compared to 4.3-cm. 2. A newly identified nodular focus of increased 18-F labeled glucose metabolism is noted in the left lower posteromedial lung-left lower lobe registering a calculated maximal standard uptake value of 4.2. The maximal axial diameter of the corresponding parenchymal density on review of CT of the chest dated 01/11/22 is 10.6-mm (AP). 3. Additional newly visualized nodular foci of increased radiopharmaceutical activity. Are manifest in the bilateral hemithorax pulmonary parenchyma, too many to individually articulate, generating a calculated maximal standard uptake value of 2.2. The largest corresponding parenchymal density demonstrates a maximal axial diameter of 15.3-mm. 4. On the current examination there is facilitated FDG uptake nodular in expression at the level of the carinal level mediastinum and bilateral thoracic perihilum. The calculated maximal standard uptake value is noted to be 3.2. The maximal axial diameter of the largest soft tissue density is 14.8-mm. 5. Normal physiologic distribution of the radiopharmaceutical is apparent in the hepatic and splenic parenchyma, both renal units, bladder and visualized intestinal tract. The visualized portion of the cerebral cortical-subcortical structures demonstrate symmetric and preserved glucose metabolism. Diffuse radiopharmaceutical concentration is noted in all four quadrants of the abdomen and pelvis. The previously identified metabolic abnormalities noted on the FDG PET study dated 04/26/21 are not visualized on the present examination. Prominent tracer uptake is observed in the anterior aspect of the oral cavity without evidence of corresponding soft tissue abnormality most consistent with physiologic tracer uptake. Pertinent CT findings are as follows: CHEST: Emphysematous changes are defined in the bilateral upper lung zones. Ventricular pacemaker placement is observed. There is atherosclerotic calcification defined in the thoracic aorta without evidence of dilatation-aneurysm formation. Coronary arterial calcification is demonstrated. Multiple additional parenchymal changes defined above demonstrate borderline quantitatively significant enhanced FDG uptake. ABDOMEN AND PELVIS: There is atherosclerotic calcification defined in the abdominal aorta without evidence of dilatation-aneurysm formation. Pelvic arterial calcification is demonstrated. Bilateral inguinal soft tissue densities with fatty hilus are non-glucose avid. Subcentimeter retroperitoneal soft tissue is ametabolic. Right and left inguinal soft tissue densities with fatty hilus demonstrate no evidence of quantitatively significant increased FDG uptake. SKELETAL: Degenerative changes are noted in the cervical, thoracic and lumbar spine without evidence of increased radiopharmaceutical concentration. There is no evidence of sclerotic, mixed sclerotic-lytic and/or lytic changes noted on review of the skeletal structures manifesting an increase in glucose metabolism. PET/PET/CT Tumor Base -Thigh Init IMPRESSION: 1. ABNORMAL EXAMINATION INDICATIVE OF MALIGNANT VIABLE NEOPLASM. 2. Increased glucose concentration redefined in the right lower lung-right lower lobe fulfills quantitative criteria for viable neoplastic infiltration. (James et al, Annals of Internal Medicine, 138:724, 2003). 3. The increased FDG activity newly apparent in the left lower posteromedial lung-left lower lobe, nodular in presentation, fulfills quantitative criteria for viable neoplasm. 4. Enhanced tracer uptake currently visualized in multiple additional locations within the right and left hemithorax pulmonary parenchyma with expressed nodularity fulfill borderline quantitative criteria for viable neoplasm. 5. Facilitated labeled GLUCOSE visualized in the mediastinum and bilateral thoracic perihilum fulfills borderline quantitative criteria for viable neoplasm. (Lj et al, Journal of Clinical Oncology 16:2142, 1998). 6. There is interim resolution of all additional prior defined metabolic abnormalities. 7. Overall, compared to the prior FDG PET study dated 04/26/21, there is an apparent mixed response to therapeutic intervention to include persistent viable neoplasm manifest in the right lower lung-right lower lobe demonstrating interval quantitative partial metabolic response. Apparent metabolic progression of defined viable neoplastic disease is encountered in the left lower posteromedial lung-left lower lobe. There is potential interim progression of defined viable neoplasm noted in multiple additional locations within the right and left hemithorax pulmonary parenchyma, mediastinal structures and bilateral thoracic perihilum. Interval resolution of all prior additional defined hypermetabolic foci is noted on the present evaluation. Electronic Signature Anders Solares D.O. Accurate Quantification of SUVs for this report are calculated using the exclusive [employer]. ([place].S. Patent No. [id number] [id number]). Standardization and correction of the FDG SUV metric via [employer] technology allow for vendor non-specific objective quantitative examination comparison and optimization of the sensitivity and specificity of the FDG PET-CT examination. Electronically Signed: Anders Solares DO at 21:25 EST ,
== END 2022-01-11 23:59 | disposition home or self-care (01) ==
LOC: ONC 13:25
PROVIDERS: PCP Nurse Practitioner Family; Referring Provider Internal Medicine Hematology & Oncology; Visit Provider Internal Medicine Hematology & Oncology
DX: C34.31 Malignant neoplasm of lower lobe, right bronchus or lung (principal)
CPT/HCPCS: 78815; A9552

== ENCOUNTER → 2023-05-29 | Outpatient (CLI) | payer MEDICARE, MEDICAID, SELFPAY ==
--- NOTE | 2023-05-29 10:00 | PET_ITS ---
EXAMINATION: FDG PET/CT INDICATIONS: 62-year-old male with a history of primary right lung carcinoma, presenting for restaging examination. COMPARISON EXAMINATION: FDG-PET CT study dated 01/11/2022. TECHNIQUE: Following the intravenous administration of 13.29 mCi of F-18 deoxyglucose via the left hand, multiplanar image acquisitions of the head, neck, chest, abdomen and pelvis to the level of the midthigh, obtained at one-hour post radiopharmaceutical administration contemporaneously interpreted with the current CT of the chest, abdomen and pelvis dated 05/29/2023 and prior FDG PET CT study dated 01/11/2022 via coregistration reveal: SERUM GLUCOSE LEVEL: 97 mg/dL HEIGHT: 69 inches WEIGHT: 160 pounds FINDINGS: HEAD/NECK: There is no evidence of abnormal increased glucose metabolism in the pharyngeal mucosal space, parapharyngeal space, oropharynx, bilateral-lateral and anterior neck, hypopharynx and distribution of the larynx. The visualized portion of the cerebral cortical-subcortical structures demonstrate symmetric and preserved glucose metabolism. Prominent uptake is noted in the anterior midline oral cavity without an anatomic correlate, most consistent with physiologic tracer uptake. CHEST: There is no quantitative scintigraphic evidence of abnormal increased glucose metabolism within the context of the bilateral hemithorax pulmonary parenchyma, right and left hemithorax at the pleural interface, mediastinal structures, and left-right thoracic perihilum. Interim resolution of the prior defined hypermetabolic foci is noted. There is visualized radiopharmaceutical concentration noted in the left ventricular myocardium, consistent with the [place]. Increased uptake is noted in the proximal-distal esophagus, segmental in presentation, most consistent with physiologic tracer uptake or activated leukocytes associated with esophagitis. CT of the chest demonstrates the following anatomic characteristics: Partially calcified parenchymal changes noted in the right lower posteromedial lung zone are nonglucose avid. Atherosclerotic calcification is defined in the thoracic aorta without evidence of dilatation, aneurysm formation. Coronary arterial calcification is observed. Bilateral axillary soft tissue densities are ametabolic. Ventricular pacemaker placement is defined. Emphysematous changes are demonstrated in the bilateral upper lung zones. Additional parenchymal densities noted in the bilateral hemithorax demonstrate no evidence of increased FDG uptake. Post-procedural surgical change is noted in the mediastinal structures. ABDOMEN/PELVIS: Normal physiologic distribution of the radiopharmaceutical is identified in the hepatic and splenic parenchyma, both renal units, urinary bladder, and visualized intestinal tract. CT of the abdomen and pelvis is remarkable for the following: Retained oral contrast material is noted within the visualized gastrointestinal tract. Atherosclerotic calcification is defined in the abdominal aorta without evidence of dilatation, aneurysm formation. Pelvic arterial calcification is observed. Right-left inguinal soft tissue densities are nonglucose avid. Calcified phlebolith formation is noted in the right hemipelvis. SKELETAL: Degenerative changes defined in the thoracic and lumbar spine demonstrate no evidence of increased glucose metabolism. There are no sclerotic, mixed sclerotic-lytic, or primarily lytic changes defined in the axial skeletal structures with evidence of increased FDG uptake. PET/PET/CT Tumor Base -Thigh Subs IMPRESSION: 1. NEGATIVE EXAMINATION. There is no definitive quantitatively significant scintigraphic evidence of recurrent-metastatic viable neoplasm. 2. Overall, compared to the prior FDG-PET CT study dated 01/11/2022, there is interim metabolic resolution of the prior defined right and left lung and thoracic perihilar hypermetabolic foci. Electronic Signature Anders Solares D.O. Accurate Quantification of SUVs for this report are calculated using the exclusive [employer]. (U.S. Patent No. [id number] B2 [phone] [place] patent [phone]). Standardization and correction of the FDG SUV metric via [employer] technology allow for vendor non-specific objective quantitative examination comparison and optimization of the sensitivity and specificity of the FDG PET-CT examination. Electronically Signed: Anders Solares, at 8:04 EDT ,
== END | disposition home or self-care (01) ==
LOC: ONC 09:54
PROVIDERS: PCP Nurse Practitioner Family; Referring Provider Nurse Practitioner; Visit Provider Nurse Practitioner
DX: C34.31 Malignant neoplasm of lower lobe, right bronchus or lung (principal); C77.1 Secondary and unspecified malignant neoplasm of intrathoracic lymph nodes
CPT/HCPCS: 78815; A9552

== ENCOUNTER → 2024-04-22 | Outpatient (CLI) | payer MEDICARE, MEDICAID, SELFPAY ==
--- NOTE | 2024-04-22 12:00 | PET_ITS ---
EXAMINATION: FDG PET-CT INDICATIONS: A 63-year-old male with a history of primary lung carcinoma presenting for restaging examination. COMPARISON EXAMINATION: Prior FDG PET CT study dated 05/29/23. INDEX LESION SIZE SUV INTERPRETATION Right lower lung field, right lower lobe 1.5 max Quantitative criteria for viable neoplasm are not fulfilled. TECHNIQUE: Following the intravenous administration of 13.3 mCi of F-18 deoxyglucose, multiplanar image acquisitions of the head, neck, chest, abdomen and pelvis to level of mid-thigh, lower extremities obtained at one hour post radiopharmaceutical administration contemporaneously interpreted with the current CT of the head, neck, chest, abdomen and pelvis to level of mid-thigh, lower extremities dated 04/22/24 via coregistration and prior FDG PET CT study dated 05/29/23 reveal: HEIGHT: 74 inches. WEIGHT: 157 lbs. FINDINGS: Head/Neck: There is no evidence of abnormal increased glucose metabolism in the pharyngeal mucosal space, parapharyngeal space, bilateral-lateral and anterior neck, hypopharynx and distribution of the laryngeal structures. The visualized portion of the cerebral cortical-subcortical structures demonstrate symmetric and preserved glucose metabolism. CHEST: There is no quantitative scintigraphic evidence of abnormal increased glucose metabolism within the context of the bilateral hemithorax pulmonary parenchyma, right and left hemithoracic pleural interface, mediastinal structures and thoracic perihilum.? Pertinent chest CT findings are as follows. Ventricular pacemaker placement is defined. A hiatal hernia is defined. Enhanced tracer uptake is noted in the right lower posteromedial lung zone generating a calculated maximum standard uptake value of 1.5. Otherwise, the previously defined morphologic-anatomic changes described on the prior FDG PET-CT report dated 05/29/23, are essentially unchanged on the current examination. Abdomen/Pelvis: Normal physiologic distribution of the radiopharmaceutical is apparent in the hepatic (4.0) and splenic parenchyma, both renal units, bladder and visualized intestinal tract. Diffuse radiopharmaceutical concentration is noted in all four quadrants of the abdomen and pelvis. The abdomen and pelvis CT findings are as follows. There is atherosclerotic calcification defined in the abdominal aorta without evidence of dilatation-aneurysm formation. Abdominal and pelvic arterial calcification is observed. Right and left inguinal soft tissue densities are ametabolic. Calcified phlebolith formation is noted in the right lower hemipelvis. Skeletal: Degenerative changes are noted in the cervical, thoracic and lumbar spine. PET/PET/CT Tumor Base -Thigh Subs IMPRESSION: 1. NEGATIVE EXAMINATION. There is no definitive quantitative scintigraphic evidence of viable neoplasm. 2. Enhanced trace uptake noted in the right lower lung field, right lower lobe does not fulfill quantitative criteria for viable neoplasm. (James et al, Annals of Internal Medicine, 138:724, 2003) 3. Metabolic and/or anatomic stability may be ensured in the right hemithorax pulmonary parenchymal abnormality with repeat FDG PET study and/or CT of the thorax in three-six months. (Xiu, Journal of Nuclear Medicine 45:88, P2004 Muna, Seminars in Thoracic and Cardiovascular Surgery 14:292, 2001) Electronic Signature Anders Solares D.O. Accurate Quantification of SUVs for this report are calculated using the exclusive [employer], ([place] Patent No. [id number] [phone] patent [phone] [id number] [phone] ). Standardization and correction of the FDG SUV metric exclusively available with [employer] intellectual property, allow for vendor non-specific objective quantitative sequential FDG PET-CT comparison and otherwise unobtainable optimization of the sensitivity and specificity of the examination. [email or web address] Electronically Signed: Anders Solares DO at 7:28 EDT ,
== END | disposition home or self-care (01) ==
LOC: ONC 11:59
PROVIDERS: PCP Nurse Practitioner Family; Referring Provider Internal Medicine Hematology & Oncology; Visit Provider Internal Medicine Hematology & Oncology
DX: C34.91 Malignant neoplasm of unspecified part of right bronchus or lung (principal); C77.1 Secondary and unspecified malignant neoplasm of intrathoracic lymph nodes
CPT/HCPCS: 78815; A9552